=== PATIENT | female | born 2000 | race Caucasian/White ===

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

== ENCOUNTER 2022-07-20 11:15 | Emergency (ER) | payer OTHER ==
[2022-07-20] MEDS ORDERED: ONDANSETRON ODT 4 MG TAB PO STA (12:53)
--- NOTE | 2022-07-20 13:41 | ED ---
Psych HPI - General Chief Complaint: Psychiatric Symptoms Stated Complaint: anxiety Time Seen by Provider: 07/20/22 11:49 Source: patient Mode of arrival: ambulatory - History of Present Illness Initial Comments: Patient is a 21-year-old female presenting with chief complaint of anxiety. Patient has been feeling increased anxiety today, she normally goes to spend time with her boyfriend when this happened however he is currently working. Patient is also admitting to some nausea today, she does admit to drinking alcohol and smoking marijuana last night. She denies any abdominal pain, chest pain, shortness of breath, fever, chills, vomiting, hematochezia, melena, dysuria, hematuria, urgency, frequency, flank pain. - Related Data Home Medications Medication Instructions Recorded Confirmed ARIPiprazole [Abilify] 5 mg PO DAILY 06/02/19 06/02/19 Escitalopram [Lexapro] 10 mg PO DAILY 06/02/19 06/02/19 OXcarbazepine [Trileptal] 300 mg PO BID 06/02/19 06/02/19 Allergies Allergy/AdvReac Type Severity Reaction Status Date / Time No Known Allergies Allergy Verified 07/20/22 11:47 Review of Systems ROS Statement: Those systems with pertinent positive or pertinent negative responses have been documented in the HPI. ROS Other: All systems not noted in ROS Statement are negative. Past Medical History Past Medical History: Asthma Additional Past Medical History / Comment(s): ADHD History of Any Multi-Drug Resistant Organisms: None Reported Past Surgical History: No Surgical Hx Reported Past Psychological History: ADD/ADHD, Anxiety, Bipolar, Depression, Panic Disorder, Schizophrenia Past Alcohol Use History: None Reported Past Drug Use History: None Reported General Exam Limitations: no limitations General appearance: alert, in no apparent distress Head exam: Present: atraumatic, normocephalic, normal inspection Eye exam: Present: normal appearance, EOMI. Absent: scleral icterus, periorbital swelling Neck exam: Present: normal inspection Respiratory exam: Present: normal lung sounds bilaterally. Absent: respiratory distress, wheezes, rales, rhonchi, stridor Cardiovascular Exam: Present: regular rate, normal rhythm, normal heart sounds. Absent: systolic murmur, diastolic murmur, rubs, gallop, clicks Neurological exam: Present: alert, oriented X3, CN II-XII intact Psychiatric exam: Present: normal affect, normal mood Skin exam: Present: warm, dry, intact, normal color. Absent: rash Course Vital Signs 07/20/22 11:42 Pulse Rate 82 Respiratory 16 Rate Blood Pressure 125/73 O2 Sat by Pulse 95 Oximetry Medical Decision Making - Medical Decision Making Patient is a 21-year-old female presenting with chief complaint of anxiety. Patient states she was having an anxiety attack at home, she wanted to talk to her boyfriend that he was at work, so she came here for help. Denies suicidal or homicidal ideation. Denies visual or auditory hallucinations. Physical examination is WNL. Patient is evaluated by EPS, patient follows with [facility], she will need to be transferred to their facilities. - Lab Data Result diagrams: 07/20/22 18:58 07/20/22 18:58 Lab Results 07/20/22 07/20/22 07/20/22 Range/Units 12:59 12:59 12:59 WBC (3.8-10.6) k/uL RBC (3.80-5.40) m/uL Hgb (11.4-16.0) gm/dL Hct (34.0-46.0) % MCV (80.0-100.0) fL MCH (25.0-35.0) pg MCHC (31.0-37.0) g/dL RDW (11.5-15.5) % Plt Count (150-450) k/uL MPV Sodium (137-145) mmol/L Potassium (3.5-5.1) mmol/L Chloride (98-107) mmol/L Carbon Dioxide (22-30) mmol/L Anion Gap mmol/L BUN (7-17) mg/dL Creatinine (0.52-1.04) mg/dL Est GFR (CKD-EPI)AfAm (>60 ml/min/1.73 sqM) Est GFR (CKD-EPI)NonAf (>60 ml/min/1.73 sqM) Glucose (74-99) mg/dL Calcium (8.4-10.2) mg/dL Total Bilirubin (0.2-1.3) mg/dL AST (14-36) U/L ALT (4-34) U/L Alkaline Phosphatase (38-126) U/L Total Protein (6.3-8.2) g/dL Albumin (3.5-5.0) g/dL Urine Color Colorless Urine Appearance Clear (Clear) Urine pH 6.5 (5.0-8.0) Ur Specific [place] 1.008 (1.001-1.035) Urine Protein Negative (Negative) Urine Glucose (UA) Negative (Negative) Urine Ketones Negative (Negative) Urine Blood Negative (Negative) Urine Nitrite Negative (Negative) Urine Bilirubin Negative (Negative) Urine Urobilinogen <2.0 (<2.0) mg/dL Ur Leukocyte Esterase Negative (Negative) Urine HCG, Qual Not Detected (Not Detectd) Urine Opiates Screen Not Detected (NotDetected) Ur Oxycodone Screen Not Detected (NotDetected) Urine Methadone Screen Not Detected (NotDetected) Ur Propoxyphene Screen Not Detected (NotDetected) Ur Barbiturates Screen Not Detected (NotDetected) U Tricyclic Antidepress Not Detected (NotDetected) Ur Phencyclidine Scrn Not Detected (NotDetected) Ur Amphetamines Screen Not Detected (NotDetected) U Methamphetamines Scrn Not Detected (NotDetected) U Benzodiazepines Scrn Not Detected (NotDetected) Urine Cocaine Screen Not Detected (NotDetected) U Marijuana (THC) Screen Not Detected (NotDetected) Coronavirus (PCR) (Not Detectd) 07/20/22 07/20/22 07/20/22 Range/Units 18:58 18:58 18:58 WBC 9.4 (3.8-10.6) k/uL RBC 4.80 (3.80-5.40) m/uL Hgb 14.1 (11.4-16.0) gm/dL Hct 41.3 (34.0-46.0) % MCV 86.0 (80.0-100.0) fL MCH 29.3 (25.0-35.0) pg MCHC 34.1 (31.0-37.0) g/dL RDW 13.8 (11.5-15.5) % Plt Count 188 (150-450) k/uL MPV 10.5 Sodium 137 (137-145) mmol/L Potassium 3.8 (3.5-5.1) mmol/L Chloride 102 (98-107) mmol/L Carbon Dioxide 22 (22-30) mmol/L Anion Gap 13 mmol/L BUN 14 (7-17) mg/dL Creatinine 0.52 (0.52-1.04) mg/dL Est GFR (CKD-EPI)AfAm >90 (>60 ml/min/1.73 sqM) Est GFR (CKD-EPI)NonAf >90 (>60 ml/min/1.73 sqM) Glucose 79 (74-99) mg/dL Calcium 9.1 (8.4-10.2) mg/dL Total Bilirubin 0.3 (0.2-1.3) mg/dL AST 27 (14-36) U/L ALT 13 (4-34) U/L Alkaline Phosphatase 107 (38-126) U/L Total Protein 7.3 (6.3-8.2) g/dL Albumin 4.4 (3.5-5.0) g/dL Urine Color Urine Appearance (Clear) Urine pH (5.0-8.0) Ur Specific [place] (1.001-1.035) Urine Protein (Negative) Urine Glucose (UA) (Negative) Urine Ketones (Negative) Urine Blood (Negative) Urine Nitrite (Negative) Urine Bilirubin (Negative) Urine Urobilinogen (<2.0) mg/dL Ur Leukocyte Esterase (Negative) Urine HCG, Qual (Not Detectd) Urine Opiates Screen (NotDetected) Ur Oxycodone Screen (NotDetected) Urine Methadone Screen (NotDetected) Ur Propoxyphene Screen (NotDetected) Ur Barbiturates Screen (NotDetected) U Tricyclic Antidepress (NotDetected) Ur Phencyclidine Scrn (NotDetected) Ur Amphetamines Screen (NotDetected) U Methamphetamines Scrn (NotDetected) U Benzodiazepines Scrn (NotDetected) Urine Cocaine Screen (NotDetected) U Marijuana (THC) Screen (NotDetected) Coronavirus (PCR) Not Detected (Not Detectd) Disposition Clinical Impression: Anxiety Disposition: TRANSFER TO PSYCH HOSP/UNIT Condition: Fair Referrals: None,Stated [Primary Care Provider] - 1-2 days Time of Disposition: 17:09
[2022-07-20 13:45] LABS: Amphetamine Screen,Urine Not Detected (NotDetected); Barbiturate Screen,Urine Not Detected (NotDetected); Benzodiazepines Screen,Urine Not Detected (NotDetected); Cocaine Screen,Urine Not Detected (NotDetected); Methadone Screen, Urine Not Detected (NotDetected); Opiate Screen,Urine Not Detected (NotDetected); Oxycodone Screen, Urine Not Detected (NotDetected); Phencyclidine Screen,Urine Not Detected (NotDetected); Tricyclic Antidepressant,Urine Not Detected (NotDetected); Urn Cannabinoid Scrn Not Detected (NotDetected)
[2022-07-20 13:46] LABS: Appearance,Urine Clear (Clear); Bilirubin,Urine Negative (Negative); Blood,Urine Negative (Negative); Color,Urine Colorless; Glucose,Urine (UA) Negative (Negative); Ketones,Urine Negative (Negative); Leukocyte Esterase,Urine Negative (Negative); Nitrite,Urine Negative (Negative); PH, Urine 6.5 (5.0-8.0); Protein,Urine Negative (Negative); Specific Gravity,Urine 1.008 (1.001-1.035); Urobilinogen,Urine <2.0 mg/dL (<2.0)
[2022-07-20] MEDS ORDERED: NICOTINE GUM (POLACRILEX) 2 MG GUM BUCCAL PRN (18:23)
[2022-07-20 19:30] LABS: ALT 13 U/L (4-34); AST 27 U/L (14-36); African American GFR (CKD) >90 (>60 ml/min/1.73 sqM); Albumin 4.4 g/dL (3.5-5.0); Alkaline Phosphatase 107 U/L (38-126); Anion Gap 13 mmol/L; Blood Urea Nitrogen 14 mg/dL (7-17); Calcium 9.1 mg/dL (8.4-10.2); Carbon Dioxide 22 mmol/L (22-30); Chloride 102 mmol/L (98-107); Glucose 79 mg/dL (74-99); Non-African American GFR(CKD) >90 (>60 ml/min/1.73 sqM); Potassium 3.8 mmol/L (3.5-5.1); Sodium 137 mmol/L (137-145); Total Bilirubin 0.3 mg/dL (0.2-1.3); Total Protein 7.3 g/dL (6.3-8.2)
[2022-07-20 19:34] LABS: HCT 41.3 % (34.0-46.0); HGB 14.1 gm/dL (11.4-16.0); MCH 29.3 pg (25.0-35.0); MCHC 34.1 g/dL (31.0-37.0); Mean Platelet Volume 10.5; Platelet Count 188 k/uL (150-450); RDW 13.8 % (11.5-15.5); WBC 9.4 k/uL (3.8-10.6)
[2022-07-21 07:36] VITALS: TEMP 98.2
[2022-07-21 09:00] VITALS: BP 150/72; PULSE 100; RESP 20
== END 2022-07-21 14:41 ==
LOC: EC 11:15
DX: F41.9 Anxiety disorder, unspecified (principal); J45.909 Unspecified asthma, uncomplicated; F31.9 Bipolar disorder, unspecified; Z79.899 Other long term (current) drug therapy; Z20.822 Contact with and (suspected) exposure to COVID-19
CPT/HCPCS: 36415; 80053; 80306; 81003; 81025; 82075; 85027; 87635; 99284

== ENCOUNTER 2023-04-23 09:23 | Emergency (ER) | payer OTHER ==
[2023-04-23 09:40] VITALS: PULSE 88
--- NOTE | 2023-04-23 10:11 | ED ---
ENT HPI - General Chief complaint: ENT Stated complaint: Jaw Pain Left Side Time Seen by Provider: 04/23/23 09:45 Source: patient, RN notes reviewed Mode of arrival: ambulatory Limitations: no limitations - History of Present Illness Initial comments: 22-year-old female presents emergency from [facility] left-sided jaw, facial pain. Patient states that she does have noted cavity on that side states that she has a more electronic min. Patient states it is very painful. Patient denies any fever at home were noted have temp of 1.1. Patient denies any difficulty swallowing no cough or cold like symptoms she is not taking Tylenol Motrin. - Related Data Home Medications Medication Instructions Recorded Confirmed ARIPiprazole [Abilify] 5 mg PO DAILY 06/02/19 06/02/19 Escitalopram [Lexapro] 10 mg PO DAILY 06/02/19 06/02/19 OXcarbazepine [Trileptal] 300 mg PO BID 06/02/19 06/02/19 Previous Rx's Medication Instructions Recorded Amoxic-Pot Clav 875-125Mg 1 tab PO Q12HR #20 tab 04/23/23 [Augmentin 875-125] Ibuprofen [Motrin] 600 mg PO Q8HR PRN #20 tab 04/23/23 Allergies Allergy/AdvReac Type Severity Reaction Status Date / Time No Known Allergies Allergy Verified 04/23/23 09:40 Review of Systems ROS Statement: Those systems with pertinent positive or pertinent negative responses have been documented in the HPI. ROS Other: All systems not noted in ROS Statement are negative. Past Medical History Past Medical History: Asthma Additional Past Medical History / Comment(s): ADHD History of Any Multi-Drug Resistant Organisms: None Reported Past Surgical History: No Surgical Hx Reported Past Psychological History: ADD/ADHD, Anxiety, Bipolar, Depression, Panic Disorder, Schizophrenia Smoking Status: Current every day smoker, Vaper Past Alcohol Use History: None Reported Past Drug Use History: Marijuana General Exam Limitations: no limitations General appearance: alert, in no apparent distress Head exam: Present: atraumatic, normocephalic, normal inspection Eye exam: Present: normal appearance, PERRL, EOMI. Absent: scleral icterus, conjunctival injection, periorbital swelling ENT exam: Present: mucous membranes moist, TM's normal bilaterally, normal external ear exam. Absent: normal oropharynx (Infected more left lower, there is notable tenderness and swelling no left submandibular gland region) Neck exam: Present: normal inspection, full ROM. Absent: tenderness, m eningismus, lymphadenopathy Respiratory exam: Present: normal lung sounds bilaterally. Absent: respiratory distress, wheezes, rales, rhonchi, stridor Cardiovascular Exam: Present: regular rate, normal rhythm, normal heart sounds. Absent: systolic murmur, diastolic murmur, rubs, gallop, clicks Course Vital Signs 04/23/23 04/23/23 09:36 10:20 Temperature 100.1 F H 98.9 F Pulse Rate 88 88 Respiratory 18 16 Rate Blood Pressure 113/73 115/69 O2 Sat by Pulse 98 Oximetry Medical Decision Making - Medical Decision Making Was pt. sent in by a medical professional or institution (, [facility], [employer], urgent care, hospital, or residential...) When possible be specific @ -No Did you speak to anyone other than the patient for history (EMS, parent, family, police, friend...)? What history was obtained from this source @ -No Did you review nursing and triage notes (agree or disagree)? Why? @ -I reviewed and agree with nursing and triage notes Were old charts reviewed (outside hosp., previous admission, EMS record, old EKG, old radiological studies, urgent care reports/EKG's, residential records)? Report findings @ -No old charts were reviewed Differential Diagnosis (chest pain, altered mental status, abdominal pain women, abdominal pain men, vaginal bleeding, weakness, fever, dyspnea, syncope, headache, dizziness, GI bleed, back pain, seizure, CVA, palpatations, mental health, musculoskeletal)? @ -Dental infection, dental abscess, sialadentitis EKG interpreted by me (3pts min.). @ none ove] X-rays interpreted by me (1pt min.). @ -None done CT interpreted by me (1pt min.). @ -None done U/S interpreted by me (1pt. min.). @ -None done What testing was considered but not performed or refused? (CT, X-rays, U/S, labs)? Why? @ -None What meds were considered but not given or refused? Why? @ -None Did you discuss the management of the patient with other professionals (professionals i.e. , PA, [employer], lab, RT, psych nurse, executive secretary social welfare, practical nurse clinical coordinator, teacher, credit officer, field case manager)? Give summary @ -No Was smoking cessation discussed for >3mins.? @ -No Was critical care preformed (if so, how long)? @ -No Were there social determinants of health that impacted care today? How? (Homelessness, low income, unemployed, alcoholism, drug addiction, transportation, low edu. Level, literacy, decrease access to med. care, [place] [facility], rehab)? @ -No Was there de-escalation of care discussed even if they declined (Discuss DNR or withdrawal of care, Hospice)? DNR status @ -No What co-morbidities impacted this encounter? (DM, HTN, Smoking, COPD, CAD, Cancer, CVA, ARF, Chemo, Hep., AIDS, mental health diagnosis, sleep apnea, morbid obesity)? @ -None Was patient admitted / discharged? Hospital course, mention meds given and route, prescriptions, significant lab abnormalities, going to OR and other pertinent info. Patient discharged on oral antibiotics with close follow-up this may related from underlying dental infection or salivary gland infection, blocked duct. Patient advised to try a candies will follow-up with dentist.] Undiagnosed new problem with uncertain prognosis? @ -No Drug Therapy requiring intensive monitoring for toxicity (Heparin, Nitro, Insulin, Cardizem)? @ -No Were any procedures done? @ -No Diagnosis/symptom? Dental infection Acute, or Chronic, or Acute on Chronic? Acute ] Uncomplicated (without systemic symptoms) or Complicated (systemic symptoms)? @ -Uncomplicated Side effects of treatment? @ -No Exacerbation, Progression, or Severe Exacerbation? @ -No Poses a threat to life or bodily function? How? (Chest pain, [place], [place], pneumonia, PE, COPD, DKA, ARF, appy, cholecystitis, CVA, Diverticulitis, Homicidal, Suicidal, threat to staff... and all critical care pts) @ -No Disposition Clinical Impression: Dental infection, Sialadenitis Disposition: HOME SELF-CARE Condition: Stable Instructions (If sedation given, give patient instructions): Dental Abscess (ED) Additional Instructions: Please return to the Emergency Department if symptoms worsen or any other concerns. Prescriptions: Amoxic-Pot Clav 875-125Mg [Augmentin 875-125] 1 tab PO Q12HR #20 tab Ibuprofen [Motrin] 600 mg PO Q8HR PRN #20 tab PRN Reason: Pain Is patient prescribed a controlled substance at d/c from ED?: No Referrals: None,Stated [Primary Care Provider] - 1-2 days Time of Disposition: 10:10
[2023-04-23 10:21] VITALS: BP 115/69; RESP 16; TEMP 98.9
== END 2023-04-23 10:21 | disposition home or self-care (01) ==
LOC: EC 09:23
DX: K04.7 Periapical abscess without sinus (principal); K11.20 Sialoadenitis, unspecified; J45.909 Unspecified asthma, uncomplicated; F12.90 Cannabis use, unspecified, uncomplicated; F17.290 Nicotine dependence, other tobacco product, uncomplicated
CPT/HCPCS: 99283

== ENCOUNTER 2023-05-15 13:11 | Emergency (ER) | payer OTHER ==
[2023-05-15 15:14] LABS: Appearance,Urine Cloudy (Clear); Bacteria,Urine Rare /hpf; Bilirubin,Urine Negative (Negative); Blood,Urine Negative (Negative); Color,Urine Yellow; Glucose,Urine (UA) Negative (Negative); Ketones,Urine Negative (Negative); Leukocyte Esterase,Urine Large (Negative); Mucus,Urine Many /hpf; Nitrite,Urine Negative (Negative); Protein,Urine 1+ (Negative); RBC,Urine 11 /hpf (0-5); Specific Gravity,Urine 1.025 (1.001-1.035); Squamous Epithelial Cell,Urine 6 /hpf (0-4); Urobilinogen,Urine <2.0 mg/dL (<2.0); WBC,Urine 32 /hpf (0-5)
--- NOTE | 2023-05-15 17:07 | ED ---
General Adult HPI - General Chief complaint: Urogenital Stated complaint: Vaginal Itching Time Seen by Provider: 05/15/23 16:02 Source: patient Mode of arrival: ambulatory Limitations: no limitations - History of Present Illness Initial comments: 22-year-old female presents to the emergency department with chief complaint of vaginal itching, odor, discharge since Thursday. She reports the discharge as white. Patient states that she has not had any recent new sexual partners. She states that her last period was at the beginning of this month. Patient does not be tested for STDs. She denies any fever, chills. - Related Data Home Medications Medication Instructions Recorded Confirmed ARIPiprazole [Abilify] 5 mg PO DAILY 06/02/19 06/02/19 Escitalopram [Lexapro] 10 mg PO DAILY 06/02/19 06/02/19 OXcarbazepine [Trileptal] 300 mg PO BID 06/02/19 06/02/19 Previous Rx's Medication Instructions Recorded Amoxic-Pot Clav 875-125Mg 1 tab PO Q12HR #20 tab 04/23/23 [Augmentin 875-125] Ibuprofen [Motrin] 600 mg PO Q8HR PRN #20 tab 04/23/23 metroNIDAZOLE [Flagyl] 500 mg PO BID #14 tab 05/15/23 Allergies Allergy/AdvReac Type Severity Reaction Status Date / Time No Known Allergies Allergy Verified 05/15/23 14:19 Review of Systems ROS Statement: Those systems with pertinent positive or pertinent negative responses have been documented in the HPI. ROS Other: All systems not noted in ROS Statement are negative. Past Medical History Past Medical History: Asthma Additional Past Medical History / Comment(s): ADHD History of Any Multi-Drug Resistant Organisms: None Reported Past Surgical History: No Surgical Hx Reported Past Psychological History: ADD/ADHD, Anxiety, Bipolar, Depression, Panic Disorder, Schizophrenia Smoking Status: Current every day smoker, Vaper Past Alcohol Use History: None Reported Past Drug Use History: Marijuana General Exam Limitations: no limitations General appearance: alert, in no apparent distress Head exam: Present: atraumatic, normocephalic, normal inspection Eye exam: Present: normal appearance ENT exam: Present: normal exam, mucous membranes moist Neck exam: Present: normal inspection. Absent: tenderness, meningismus, lymphadenopathy Respiratory exam: Present: normal lung sounds bilaterally. Absent: respiratory distress, wheezes, rales, rhonchi, stridor Cardiovascular Exam: Present: regular rate, normal rhythm, normal heart sounds. Absent: systolic murmur, diastolic murmur, rubs, gallop, clicks GI/Abdominal exam: Present: soft, normal bowel sounds. Absent: distended, tenderness, guarding, rebound, rigid External exam: Present: normal external exam Speculum exam: Present: vaginal discharge By manual exam: Present: normal by manual exam Extremities exam: Present: normal inspection, full ROM, normal capillary refill. Absent: tenderness, pedal edema, joint swelling, calf tenderness Back exam: Present: normal inspection Neurological exam: Present: alert, oriented X3 Psychiatric exam: Present: normal affect, normal mood Skin exam: Present: warm, dry, intact, normal color. Absent: rash Course Vital Signs 05/15/23 05/15/23 14:16 17:40 Temperature 98.0 F 97.8 F Pulse Rate 70 56 L Respiratory 20 16 Rate Blood Pressure 111/70 112/70 O2 Sat by Pulse 98 98 Oximetry Medical Decision Making - Medical Decision Making Was pt. sent in by a medical professional or institution (, PA, SPOT WORKER, urgent care, hospital, or assisted...) When possible be specific @ -No Did you speak to anyone other than the patient for history (EMS, parent, family, police, friend...)? What history was obtained from this source @ -No Did you review nursing and triage notes (agree or disagree)? Why? @ -I reviewed and agree with nursing and triage notes Were old charts reviewed (outside hosp., previous admission, EMS record, old EKG, old radiological studies, urgent care reports/EKG's, assisted records)? Report findings @ -No old charts were reviewed Differential Diagnosis (chest pain, altered mental status, abdominal pain women, abdominal pain men, vaginal bleeding, weakness, fever, dyspnea, syncope, headache, dizziness, GI bleed, back pain, seizure, CVA, palpatations, mental health, musculoskeletal)? @ -Gonorrhea, chlamydia, Trichomonas, bacterial vaginosis, vaginal candidiasis EKG interpreted by me (3pts min.). @ -None] X-rays interpreted by me (1pt min.). @ -None done CT interpreted by me (1pt min.). @ -None done U/S interpreted by me (1pt. min.). @ -None done What testing was considered but not performed or refused? (CT, X-rays, U/S, labs)? Why? @ -None What meds were considered but not given or refused? Why? @ -None Did you discuss the management of the patient with other professionals (professionals i.e. , PA, SPOT WORKER, lab, RT, psych nurse, healthcare social worker, plastic parts designer, teacher, home lending officer, complex case manager)? Give summary @ -No Was smoking cessation discussed for >3mins.? @ -No Was critical care preformed (if so, how long)? @ -No Were there social determinants of health that impacted care today? How? (Homelessness, low income, unemployed, alcoholism, drug addiction, t ransportation, low edu. Level, literacy, decrease access to med. care, retirement, rehab)? @ -No Was there de-escalation of care discussed even if they declined (Discuss DNR or withdrawal of care, Hospice)? DNR status @ -No What co-morbidities impacted this encounter? (DM, HTN, Smoking, COPD, CAD, Cancer, CVA, ARF, Chemo, Hep., AIDS, mental health diagnosis, sleep apnea, morbid obesity)? @ -None Was patient admitted / discharged? Hospital course, mention meds given and route, prescriptions, significant lab abnormalities, going to OR and other pertinent info. @ -Discharge. Patient presented to emergency department chief complaint of vaginal itching, odor, discharge. Patient treated empirically for bacterial vaginosis based on clinical examination. Patient instructed not to take alcohol while taking Flagyl. Advised patient with recalls with results for STD testing if positive. Patient discharged in stable condition. Case discussed with my attending, Umu Sesay] Undiagnosed new problem with uncertain prognosis? @ -No Drug Therapy requiring intensive monitoring for toxicity (Heparin, Nitro, Insulin, Cardizem)? @ -No Were any procedures done? @ -No Diagnosis/symptom? @ -bacterial vaginosis Acute, or Chronic, or Acute on Chronic? @ -acute Uncomplicated (without systemic symptoms) or Complicated (systemic symptoms)? @ -uncomplicated Side effects of treatment? @ -No Exacerbation, Progression, or Severe Exacerbation? @ -No Poses a threat to life or bodily function? How? (Chest pain, [place], [place], pneumonia, PE, COPD, DKA, ARF, appy, cholecystitis, CVA, Diverticulitis, Homicidal, Suicidal, threat to staff... and all critical care pts) @ -No - Lab Data Lab Results 05/15/23 05/15/23 Range/Units 14:33 14:33 Urine Color Yellow Urine Appearance Cloudy H (Clear) Urine pH 6.0 (5.0-8.0) Ur Specific [place] 1.025 (1.001-1.035) Urine Protein 1+ H (Negative) Urine Glucose (UA) Negative (Negative) Urine Ketones Negative (Negative) Urine Blood Negative (Negative) Urine Nitrite Negative (Negative) Urine Bilirubin Negative (Negative) Urine Urobilinogen <2.0 (<2.0) mg/dL Ur Leukocyte Esterase Large H (Negative) Urine RBC 11 H (0-5) /hpf Urine WBC 32 H (0-5) /hpf Ur Squamous Epith Cells 6 H (0-4) /hpf Urine Bacteria Rare H (None) /hpf Urine Mucus Many H (None) /hpf Urine HCG, Qual Not Detected (Not Detectd) Disposition Clinical Impression: Bacterial vaginosis Disposition: HOME SELF-CARE Condition: Stable Instructions (If sedation given, give patient instructions): Bacterial Vaginosis (ED) Additional Instructions: Do not consume alcohol while taking the antibiotic. Please follow up with your primary care provider. Return to the emergency department for new or worsening symptoms. Prescriptions: metroNIDAZOLE [Flagyl] 500 mg PO BID #14 tab Is patient prescribed a controlled substance at d/c from ED?: No Referrals: None,Stated [Primary Care Provider] - 1-2 days Time of Disposition: 17:07
[2023-05-15 17:42] VITALS: BP 112/70; PULSE 56; RESP 16; TEMP 97.8
[2023-05-18 15:19] LABS: C. trachomatis,PCR Positive (Negative)
[2023-05-18 15:32] LABS: N. gonorrhoeae,PCR Negative (Negative)
== END 2023-05-15 17:43 | disposition home or self-care (01) ==
LOC: EC 13:11
DX: N76.0 Acute vaginitis (principal); B96.89 Other specified bacterial agents as the cause of diseases classified elsewhere; J45.909 Unspecified asthma, uncomplicated; F31.9 Bipolar disorder, unspecified; F41.9 Anxiety disorder, unspecified; F17.290 Nicotine dependence, other tobacco product, uncomplicated; F12.90 Cannabis use, unspecified, uncomplicated; Z79.899 Other long term (current) drug therapy
CPT/HCPCS: 81001; 81025; 87070; 87086; 87491; 87591; 99283

== ENCOUNTER 2023-08-10 14:28 | Emergency (ER) | payer OTHER ==
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
[2023-08-10 15:01] VITALS: RESP 18; TEMP 99.6
[2023-08-10 15:15] LABS: Appearance,Urine Cloudy (Clear); Bacteria,Urine Rare /hpf; Bilirubin,Urine Negative (Negative); Blood,Urine Negative (Negative); Color,Urine Yellow; Glucose,Urine (UA) Negative (Negative); Ketones,Urine Negative (Negative); Leukocyte Esterase,Urine Negative (Negative); Mucus,Urine Many /hpf; Nitrite,Urine Negative (Negative); Protein,Urine Trace (Negative); RBC,Urine 1 /hpf (0-5); Specific Gravity,Urine 1.025 (1.001-1.035); Squamous Epithelial Cell,Urine 30 /hpf (0-4); WBC,Urine 3 /hpf (0-5)
[2023-08-10] MEDS ORDERED: KETOROLAC 15 MG/ML 1 ML VIAL IM STA (17:31)
[2023-08-10] MEDS ORDERED: SODIUM CHLORIDE 0.9% 1,000 ML IV STA (17:41)
--- NOTE | 2023-08-10 18:03 | XR ---
EXAMINATION TYPE: XR chest 2V DATE OF EXAM: 08/10/2023 5:53 PM CLINICAL INDICATION:Female, 22 years old with history of pain; COMPARISON: 12/02/2017 TECHNIQUE: XR chest 2V Frontal and lateral views of the chest. FINDINGS: Lungs/Pleura: There is no evidence of pleural effusion, focal consolidation, or pneumothorax. Pulmonary vascularity: Unremarkable. Heart/mediastinum: Cardiomediastinal silhouette is unremarkable. Musculoskeletal: No acute osseous pathology. IMPRESSION: No acute cardiopulmonary disease/process.
--- NOTE | 2023-08-10 18:07 | XR ---
EXAMINATION TYPE: XR lumbar spine 2 or 3V DATE OF EXAM: 08/10/2023 5:53 PM CLINICAL INDICATION:Female, 22 years old with history of pain; [facility] COMPARISON: None TECHNIQUE: XR lumbar spine 2 or 3V - Frontal, lateral and coned in L5-S1 lateral views of the spine. FINDINGS: No evidence of any acute osseous pathology. Mild wedging of the T12 and L1 vertebral bodies anteriorly. The remainder of the vertebral body heights are maintained. There is normal alignment of the lumbar vertebral bodies. Mild osteophyte formation vertebral bodies. Facet arthropathy is mild. IMPRESSION: 1. No acute fracture. 2. Mild wedging of the T12 and L1 vertebral bodies otherwise multilevel disc degeneration.
--- NOTE | 2023-08-10 18:11 | XR ---
EXAMINATION TYPE: XR KUB DATE OF EXAM: 08/10/2023 5:53 PM CLINICAL INDICATION:Female, 22 years old with history of pain; COMPARISON: None. TECHNIQUE: One radiographic view of the abdomen was obtained. FINDINGS: The bowel gas pattern is nonspecific without dilated loops of small or large bowel. There i s no evidence for organomegaly or pneumoperitoneum. The osseous structures are intact. No abnormal calcifications are present. Fecal material and gas are demonstrated throughout the colon and rectum. IMPRESSION: Nonspecific bowel gas pattern without radiographic evidence for acute process.
[2023-08-10 18:15] LABS: Basophils % (A) 0 %; Eosinophils % (A) 0 %; HCT 46.1 % (34.0-46.0); Lymphocytes # (A) 1.3 k/uL (1.0-4.8); Lymphocytes % (A) 10 %; MCH 28.5 pg (25.0-35.0); MCHC 32.5 g/dL (31.0-37.0); MCV 87.8 fL (80.0-100.0); Mean Platelet Volume 9.5; Monocytes # (A) 0.6 k/uL (0-1.0); Monocytes % (A) 5 %; Neutrophils # (A) 10.1 k/uL (1.3-7.7); Neutrophils % (A) 83 %; Platelet Count 200 k/uL (150-450); RBC 5.25 m/uL (3.80-5.40); RDW 14.6 % (11.5-15.5); WBC 12.2 k/uL (3.8-10.6)
[2023-08-10 18:26] LABS: ALT 15 U/L (4-34); AST 29 U/L (14-36); African American GFR (CKD) >90 (>60 ml/min/1.73 sqM); Albumin 4.8 g/dL (3.5-5.0); Alkaline Phosphatase 79 U/L (38-126); Amylase 49 U/L (30-110); Anion Gap 12 mmol/L; Blood Urea Nitrogen 11 mg/dL (7-17); Calcium 9.7 mg/dL (8.4-10.2); Carbon Dioxide 25 mmol/L (22-30); Chloride 101 mmol/L (98-107); Glucose 86 mg/dL (74-99); Lipase 103 U/L (23-300); Non-African American GFR(CKD) >90 (>60 ml/min/1.73 sqM); Potassium 4.1 mmol/L (3.5-5.1); Sodium 138 mmol/L (137-145); Total Bilirubin 0.8 mg/dL (0.2-1.3); Total Protein 8.4 g/dL (6.3-8.2)
[2023-08-10 19:19] VITALS: BP 116/71; PULSE 94
== END 2023-08-10 19:18 | disposition home or self-care (01) ==
LOC: EC 14:28
DX: R10.9 Unspecified abdominal pain (principal); M25.511 Pain in right shoulder; M54.9 Dorsalgia, unspecified; J45.909 Unspecified asthma, uncomplicated; F17.290 Nicotine dependence, other tobacco product, uncomplicated; F12.90 Cannabis use, unspecified, uncomplicated
CPT/HCPCS: 36415; 80053; 82150; 83690; 85025; 81001; 81025; 72100; 71046; 74018; 99284; 96360; 96372; J1885

== ENCOUNTER 2023-08-13 12:49 | Emergency (ER) | payer OTHER ==
[2023-08-13 13:28] VITALS: BP 107/71; PULSE 88; RESP 16; TEMP 97.6
--- NOTE | 2023-08-13 13:34 | ED ---
ENT HPI - General Source: patient, RN notes reviewed Mode of arrival: ambulatory Limitations: no limitations - History of Present Illness MD complaint: sore throat <Nancy Vivar - Last Filed: 08/13/23 13:29> <Janey Toney - Last Filed: 08/13/23 18:02> - General Chief complaint: ENT Stated complaint: ENT Time Seen by Provider: 08/13/23 13:29 - History of Present Illness Initial comments: This is a 22 year old female who presents to the emergency department for a sore throat. States that her tonsils appear swollen. Also states that she has been evaluated here a few times in the last 3 weeks for ongoing URI sx. Denies any chest pain or shortness of breath. (Nancy Vivar) 22-year-old female presents emergency department chief complaint sore throat. She states that this has been going on for around 3 weeks now. She states today that she noticed when she was in the mirror that her tonsils were swollen. She admits to heartburn occasionally. She denies fever, chills, shortness of breath, cough, congestion. She reports that she has been eating and hydrating well. She does not have a primary care provider that she sees. (Janey Toney) - Related Data Previous Rx's Medication Instructions Recorded Acetaminophen Tab [Tylenol] 500 mg PO Q6H #30 tablet 08/10/23 Ibuprofen [Motrin] 600 mg PO Q8HR PRN #30 tab 08/10/23 Acetaminophen [Tylenol Extra 500 mg PO Q6HR #30 tablet 08/13/23 Strength] Ibuprofen 600 mg PO Q8H #30 tab 08/13/23 Allergies Allergy/AdvReac Type Severity Reaction Status Date / Time No Known Allergies Allergy Verified 08/13/23 13:25 Review of Systems ROS Other: All systems not noted in ROS Statement are negative. <Nancy Vivar - Last Filed: 08/13/23 13:29> ROS Other: All systems not noted in ROS Statement are negative. <Janey Toney - Last Filed: 08/13/23 18:02> ROS Statement: Those systems with pertinent positive or pertinent negative responses have been documented in the HPI. Past Medical History Past Medical History: Asthma Additional Past Medical History / Comment(s): ADHD History of Any Multi-Drug Resistant Organisms: None Reported Past Surgical History: No Surgical Hx Reported Past Psychological History: ADD/ADHD, Anxiety, Bipolar, Depression, Panic Disorder, Schizophrenia Smoking Status: Current every day smoker, Vaper Past Alcohol Use History: None Reported Past Drug Use History: Marijuana <Nancy Vivar - Last Filed: 08/13/23 13:29> General Exam Limitations: no limitations <Nancy Vivar - Last Filed: 08/13/23 13:29> General appearance: alert, in no apparent distress Head exam: Present: atraumatic, normocephalic, normal inspection Eye exam: Present: normal appearance, PERRL, EOMI. Absent: scleral icterus, conjunctival injection, periorbital swelling ENT exam: Present: mucous membranes moist, other (Slightly erythematous oropharynx with cobblestoning of posterior oropharynx) Neck exam: Present: normal inspection, full ROM. Absent: tenderness, meningismus, lymphadenopathy Respiratory exam: Present: normal lung sounds bilaterally. Absent: respiratory distress, wheezes, rales, rhonchi, stridor Cardiovascular Exam: Present: regular rate, normal rhythm, normal heart sounds. Absent: systolic murmur, diastolic murmur, rubs, gallop, clicks Neurological exam: Present: alert, oriented X3 Psychiatric exam: Present: normal affect, normal mood Skin exam: Present: warm, dry, intact, normal color. Absent: rash <Janey Toney - Last Filed: 08/13/23 18:02> - General Exam Comments Initial Comments: Visual Physical Exam Vital signs reviewed General: Well-appearing, nontoxic, no acute distress. Head: Normocephalic, atraumatic Eyes: PERRLA, EOMI ENT: Airway patent Chest: Nonlabored breathing Skin: No visual rash, normal skin tone Neuro: Alert and oriented 3 Musculoskeletal: No gross abnormalities I performed the QuickNote portion of this chart. Signed Nancy Vivar PA-C. (Nancy Vivar) Course Vital Signs 08/13/23 13:25 Temperature 97.6 F Pulse Rate 88 Respiratory 16 Rate Blood Pressure 107/71 O2 Sat by Pulse 99 Oximetry Medical Decision Making <Janey Toney - Last Filed: 08/13/23 18:02> - Medical Decision Making Was pt. sent in by a medical professional or institution ([facility], PULMONARY FELLOW, urgent care, hospital, or fpc...) When possible be specific @ -No Did you speak to anyone other than the patient for history (EMS, parent, family, police, friend...)? What history was obtained from this source @ -No Did you review nursing and triage notes (agree or disagree)? Why? @ -I reviewed and agree with nursing and triage notes Were old charts reviewed (outside hosp., previous admission, EMS record, old EKG, old radiological studies, urgent care reports/EKG's, fpc records)? Report findings @ -No old charts were reviewed Differential Diagnosis (chest pain, altered mental status, abdominal pain women, abdominal pain men, vaginal bleeding, weakness, fever, dyspnea, syncope, headache, dizziness, GI bleed, back pain, seizure, CVA, palpatations, mental health, musculoskeletal)? @ -Strep, Covid, flu, viral tonsillitis, this list is not all-inclusive EKG interpreted by me (3pts min.). @ -None X-rays interpreted by me (1pt min.). @ -None done CT interpreted by me (1pt min.). @ -None done U/S interpreted by me (1pt. min.). @ -None done What testing was considered but not performed or refused? (CT, X-rays, U/S, labs)? Why? @ -None What meds were considered but not given or refused? Why? @ -Short course of steroids was considered but patient declined Did you discuss the management of the patient with other professionals (professionals i.e. [facility], PULMONARY FELLOW, lab, RT, psych nurse, social service assistant, multimedia technician, teacher, annual giving officer, caser shoe parts)? Give summary @ -No Was smoking cessation discussed for >3mins.? @ -No Was critical care preformed (if so, how long)? @ -No Were there social determinants of health that impacted care today? How? (Homelessness, low income, unemployed, alcoholism, drug addiction, transportation, low edu. Level, literacy, decrease access to med. care, detention, rehab)? @ -No Was there de-escalation of care discussed even if they declined (Discuss DNR or withdrawal of care, Hospice)? DNR status @ -No What co-morbidities impacted this encounter? (DM, HTN, Smoking, COPD, CAD, Cancer, CVA, ARF, Chemo, Hep., AIDS, mental health diagnosis, sleep apnea, morbid obesity)? @ -None Was patient admitted / discharged? Hospital course, mention meds given and route, prescriptions, significant lab abnormalities, going to OR and other pertinent info. @ -Discharged. Patient presented to the emergency department for chief complaint of sore throat. She states that this is an ongoing issue for 3 weeks now. She states that today she looked in the mirror and noticed her tonsils looked swollen. On examination, slightly erythematous oropharynx with cobblestoning, no significant tonsillar exudate or edema. Covid, influenza, RSV, strep, Monospot negative. A throat culture was sent we will call her with results. Advised her of these findings and that we will call her if the throat culture comes back positive. Patient also provided list of area PCP as she currently does not have one. Patient stable time of discharge. Case discussed with Dr. Red Undiagnosed new problem with uncertain prognosis? @ -No Drug Therapy requiring intensive monitoring for toxicity (Heparin, Nitro, Insulin, Cardizem)? @ -No Were any procedures done? @ -No Diagnosis/symptom? @ -sore throat Acute, or Chronic, or Acute on Chronic? @ -acute Uncomplicated (without systemic symptoms) or Complicated (systemic symptoms)? @ -uncomplicated Side effects of treatment? @ -No Exacerbation, Progression, or Severe Exacerbation? @ -No Poses a threat to life or bodily function? How? (Chest pain, USA, OR, pneumonia, PE, COPD, DKA, ARF, appy, cholecystitis, CVA, Diverticulitis, Homicidal, Suicidal, threat to staff... and all critical care pts) @ -No (Janey Toney) - Lab Data Lab Results 08/13/23 08/13/23 08/13/23 Range/Units 14:00 14:00 14:00 Heterophile Antibody Negative (Negative) Influenza Type A (PCR) Not Detected (Not Detectd) Influenza Type B (PCR) Not Detected (Not Detectd) RSV (PCR) Not Detected (Not Detectd) SARS-CoV-2 (PCR) Not Detected (Not Detectd) Group A Strep (PCR) NOT DETECTED (Not Detectd) Disposition <Nancy Vivar - Last Filed: 08/13/23 13:29> Is patient prescribed a controlled substance at d/c from ED?: No <Janey Toney - Last Filed: 08/13/23 18:02> Clinical Impression: Sore throat Disposition: HOME SELF-CARE Condition: Stable Instructions (If sedation given, give patient instructions): Tonsillitis (ED) Additional Instructions: Please follow up with your primary care provider. Return to the emergency department for new or worsening symptoms. Prescriptions: Ibuprofen 600 mg PO Q8H #30 tab Acetaminophen [Tylenol Extra Strength] 500 mg PO Q6HR #30 tablet Referrals: None,Stated [Primary Care Provider] - 1-2 days Forms: [facility] PCPs
== END 2023-08-13 18:26 | disposition home or self-care (01) ==
LOC: EC 12:49
DX: J02.9 Acute pharyngitis, unspecified (principal); J45.909 Unspecified asthma, uncomplicated; F17.290 Nicotine dependence, other tobacco product, uncomplicated; F12.90 Cannabis use, unspecified, uncomplicated; Z86.59 Personal history of other mental and behavioral disorders; Z20.822 Contact with and (suspected) exposure to COVID-19
CPT/HCPCS: 36415; 86308; 87070; 87636; 87651; 99283

== ENCOUNTER 2023-08-25 14:41 | Inpatient (IN) | payer MEDICAID, OTHER ==
--- NOTE | 2023-08-25 15:11 | ED ---
General Adult HPI - General Stated complaint: Mental Health Time Seen by Provider: 08/25/23 14:46 Source: patient, police, EMS, RN notes reviewed Mode of arrival: EMS Limitations: no limitations - History of Present Illness Initial comments: Patient is a pleasant 22-year-old female presenting to the emergency department with concerns for mental health evaluation. Patient reportedly states that she was brought in by police secondary to crying in public. Patient admits to having a bowel movement. Patient states she is supposed be on medication for bipolar however she has not been, unclear how long. Patient admits to having racing thoughts and difficulty sleeping. Patient has not been eating or drinking well. Patient is laughing inappropriately. - Related Data Home Medications Medication Instructions Recorded Confirmed No Known Home Medications 08/25/23 08/25/23 Allergies Allergy/AdvReac Type Severity Reaction Status Date / Time No Known Allergies Allergy Verified 08/25/23 16:13 Review of Systems ROS Statement: Those systems with pertinent positive or pertinent negative responses have been documented in the HPI. ROS Other: All systems not noted in ROS Statement are negative. Constitutional: Denies: fever Eyes: Denies: eye pain ENT: Denies: ear pain Respiratory: Denies: cough Cardiovascular: Denies: chest pain Endocrine: Denies: fatigue Gastrointestinal: Denies: abdominal pain Psychiatric: Reports: as per HPI Past Medical History Past Medical History: Asthma Additional Past Medical History / Comment(s): ADHD History of Any Multi-Drug Resistant Organisms: None Reported Past Surgical History: No Surgical Hx Reported Past Psychological History: ADD/ADHD, Anxiety, Bipolar, Depression, Panic Disorder, Schizophrenia Smoking Status: Current every day smoker, Vaper Past Alcohol Use History: None Reported Past Drug Use History: Marijuana General Exam Limitations: no limitations General appearance: alert, in no apparent distress Head exam: Present: atraumatic Eye exam: Present: normal appearance Neck exam: Present: normal inspection Respiratory exam: Present: normal lung sounds bilaterally Cardiovascular Exam: Present: regular rate, normal rhythm Neurological exam: Present: alert Psychiatric exam: Present: manic Expanded Focused psych exam: Present: restlessness, flight of ideas Skin exam: Present: normal color Course Vital Signs 08/25/23 14:51 Temperature 99 F Pulse Rate 86 Respiratory 18 Rate Blood Pressure 106/71 O2 Sat by Pulse 99 Oximetry Medical Decision Making - Medical Decision Making Was pt. sent in by a medical professional or institution ([facility], PRODUCT LISTER, urgent care, hospital, or fpc...) When possible be specific @ -Patient was brought in by police Did you speak to anyone other than the patient for history (EMS, parent, family, police, friend...)? What history was obtained from this source @ -Please officer's help provide history Did you review nursing and triage notes (agree or disagree)? Why? @ -I reviewed and agree with nursing and triage notes Were old charts reviewed (outside hosp., previous admission, EMS record, old EKG, old radiological studies, urgent care reports/EKG's, fpc records)? Report findings @ -No old charts were reviewed Differential Diagnosis (chest pain, altered mental status, abdominal pain women, abdominal pain men, vaginal bleeding, weakness, fever, dyspnea, syncope, headache, dizziness, GI bleed, back pain, seizure, CVA, palpatations, mental health, musculoskeletal)? @ -Differential Mental Health Depression, anxiety, bipolar, psychosis, schizophrenia, borderline personality, situational depression, adjustment disorder, behavioral disorder, brain tumor, malingering, substance abuse, encephalopathy, medication reaction, dementia, hypothyroidism, degenerative neurologic disorder, lupus.... This is not meant to be all-inclusive list EKG interpreted by me (3pts min.). @ -As above X-rays interpreted by me (1pt min.). @ -None done CT interpreted by me (1pt min.). @ -None done U/S interpreted by me (1pt. min.). @ -None done What testing was considered but not performed or refused? (CT, X-rays, U/S, labs)? Why? @ -None What meds were considered but not given or refused? Why? @ -None Did you discuss the management of the patient with other professionals (professionals i.e. [facility]ELA Myers, PRODUCT LISTER, lab, RT, psych nurse, clinical social work therapist, drying oven attendant, teacher, horticultural technical officer, home health care case manager)? Give summary @ -Case was discussed with psychiatric nurse [place], with plans for admission Was smoking cessation discussed for >3mins.? @ -No Was critical care preformed (if so, how long)? @ -No Were there social determinants of health that impacted care today? How? (H omelessness, low income, unemployed, alcoholism, drug addiction, transportation, low edu. Level, literacy, decrease access to med. care, senior care, rehab)? @ -No Was there de-escalation of care discussed even if they declined (Discuss DNR or withdrawal of care, Hospice)? DNR status @ -No What co-morbidities impacted this encounter? (DM, HTN, Smoking, COPD, CAD, Cancer, CVA, ARF, Chemo, Hep., AIDS, mental health diagnosis, sleep apnea, morbid obesity)? @ -None Was patient admitted / discharged? Hospital course, mention meds given and route, prescriptions, significant lab abnormalities, going to OR and other pertinent info. @ -Patient will be admitted for psychiatric care. Positive clinical certificate was completed. Undiagnosed new problem with uncertain prognosis? @ -No Drug Therapy requiring intensive monitoring for toxicity (Heparin, Nitro, Insulin, Cardizem)? @ -No Were any procedures done? @ -No Diagnosis/symptom? @ -Bipolar julia Acute, or Chronic, or Acute on Chronic? @Acute on Chronic Uncomplicated (without systemic symptoms) or Complicated (systemic symptoms)? @ -default Side effects of treatment? @ -No Exacerbation, Progression, or Severe Exacerbation? @ -No Poses a threat to life or bodily function? How? (Chest pain, USA, [place], pneumonia, PE, COPD, DKA, ARF, appy, cholecystitis, CVA, Diverticulitis, Homicidal, Suicidal, threat to staff... and all critical care pts) @ -No Disposition Clinical Impression: Bipolar disorder, Julia Disposition: TRANSFER TO PSYCH HOSP/UNIT Is patient prescribed a controlled substance at d/c from ED?: No Referrals: None,Stated [Primary Care Provider] - 1-2 days Time of Disposition: 20:11
[2023-08-26 00:11] LABS: Amphetamine Screen,Urine Not Detected (NotDetected); Barbiturate Screen,Urine Not Detected (NotDetected); Benzodiazepines Screen,Urine Not Detected (NotDetected); Cocaine Screen,Urine Not Detected (NotDetected); Methadone Screen, Urine Not Detected (NotDetected); Opiate Screen,Urine Not Detected (NotDetected); Oxycodone Screen, Urine Not Detected (NotDetected); Phencyclidine Screen,Urine Not Detected (NotDetected); Tricyclic Antidepressant,Urine Not Detected (NotDetected); Urn Cannabinoid Scrn Detected (NotDetected)
[2023-08-26 08:29] LABS: Basophils % (A) 0 %; Eosinophils # (A) 0.1 k/uL (0-0.7); Eosinophils % (A) 1 %; HCT 42.2 % (34.0-46.0); HGB 13.9 gm/dL (11.4-16.0); Lymphocytes % (A) 32 %; MCH 28.6 pg (25.0-35.0); MCHC 32.9 g/dL (31.0-37.0); MCV 86.8 fL (80.0-100.0); Mean Platelet Volume 8.9; Monocytes # (A) 0.4 k/uL (0-1.0); Monocytes % (A) 6 %; Neutrophils # (A) 3.8 k/uL (1.3-7.7); Neutrophils % (A) 59 %; Platelet Count 254 k/uL (150-450); RBC 4.86 m/uL (3.80-5.40); RDW 14.5 % (11.5-15.5); WBC 6.4 k/uL (3.8-10.6)
[2023-08-26 09:10] LABS: ALT 16 U/L (4-34); AST 34 U/L (14-36); African American GFR (CKD) >90 (>60 ml/min/1.73 sqM); Albumin 4.1 g/dL (3.5-5.0); Alkaline Phosphatase 60 U/L (38-126); Anion Gap 11 mmol/L; Blood Urea Nitrogen 14 mg/dL (7-17); Calcium 9.5 mg/dL (8.4-10.2); Carbon Dioxide 24 mmol/L (22-30); Chloride 106 mmol/L (98-107); Glucose 93 mg/dL (74-99); Non-African American GFR(CKD) >90 (>60 ml/min/1.73 sqM); Potassium 4.1 mmol/L (3.5-5.1); Sodium 141 mmol/L (137-145); Total Bilirubin 0.8 mg/dL (0.2-1.3); Total Protein 7.1 g/dL (6.3-8.2)
[2023-08-26 11:19] LABS: Amorphous Sediment,Urine Rare /hpf; Appearance,Urine Cloudy (Clear); Bacteria,Urine Occasional /hpf; Calcium Oxalate Crystals,Urine Moderate /hpf; Color,Urine Yellow; Mucus,Urine Many /hpf; RBC,Urine 4 /hpf (0-5); Specific Gravity,Urine >1.030 (1.001-1.035); Squamous Epithelial Cell,Urine 18 /hpf (0-4); WBC,Urine 59 /hpf (0-5)
[2023-08-26 11:20] LABS: Bilirubin,Urine Negative (Negative); Blood,Urine Negative (Negative); Glucose,Urine (UA) Negative (Negative); Ketones,Urine 1+ (Negative); Nitrite,Urine Negative (Negative); Protein,Urine 1+ (Negative)
[2023-08-26 11:21] LABS: Leukocyte Esterase,Urine Large (Negative)
[2023-08-26] MEDS ORDERED: MAGNESIUM HYDROXIDE 2,400 MG/30 ML CUP PO PRN (14:33)
[2023-08-26] MEDS ORDERED: MAG HYDROX/AL HYDROX/SIMETH 30 ML CUP PO PRN (14:33)
[2023-08-26] MEDS ORDERED: LORazepam 2 MG/ML INJ IM PRN (14:35)
[2023-08-26] MEDS ORDERED: HALOPERIDOL LACTATE 5 MG/ML 1 ML VIAL IM PRN (14:35)
--- NOTE | 2023-08-27 00:53 | P.CONS ---
History of Present Illness - Reason for Consult Consult date: 08/26/23 - History of Present Illness Patient is a 22-year-old female with a PMH of polysubstance abuse and psychiatric illnesses including bipolar disorder who presented to the emergency room under police custody after she was found in public crying. Patient had reported to the emergency room providers that she had not been compliant with her bipolar disorder medications for an unknown quantity time. She was admitted to the mental health unit where she was seen and evaluated accompanied by the mental health unit GITA Valdez. Patient reports that she has a significant history of substance use including methamphetamines, Percocets, and marijuana. She continues to smoke 3 packs of cigarettes daily and drinking several beers daily. She reports her last use of methamphetamines and Percocets was over 6 months ago. Denied experiencing chest discomfort, shortness of breath, fever, chills, cough, nausea, vomiting, abdominal pain, diarrhea. Review of systems: Pertinent positives and negatives as discussed in HPI, a complete review of systems was performed and all other systems are negative. Physical examination: General: non toxic, no distress, appears at stated age, normal weight Derm: no unusual rashes/lesions, no unusual ecchymoses, warm, dry Head: atraumatic, normocephalic, symmetric Eyes: EOMI, no lid lag, anicteric sclera ENT: Nose and ears atraumatic, no thrush, no pharyngeal erythema Neck: trachea midline, supple Mouth: no lip lesion, mucus membranes moist Cardiovascular: S1S2 reg, no murmur, no edema Lungs: CTA bilateral, no rhonchi, no rales , no accessory muscle use Abdominal: soft, nontender to palpation, no guarding Ext: no gross muscle atrophy, no contractures, Neuro: No gross focal neuro deficits noted Psych: Alert, oriented, internally preoccupied Assessment: Polysubstance, tobacco, alcohol abuse Psychosis Imaging: None performed Data Review: Laboratory evaluation was reviewed with urine toxicology positive for marijuana with the contaminated Plan: Advised on importance of cessation from substances Defer management of psychosis to primary psychiatry service Thank you for allowing us to participate in the care of this patient. We will follow peripherally. Do not hesitate to contact us with questions. Someone can be reached from the [facility] hospitalist group at all hours of the day at [phone]. Past Medical History Past Medical History: Asthma Additional Past Medical History / Comment(s): ADHD History of Any Multi-Drug Resistant Organisms: None Reported Past Surgical History: No Surgical Hx Reported Past Psychological History: ADD/ADHD, Anxiety, Bipolar, Depression, Panic Disorder, Schizophrenia Smoking Status: Current every day smoker, Vaper Past Alcohol Use History: None Reported Past Drug Use History: Marijuana Medications and Allergies Home Medications Medication Instructions Recorded Confirmed Type No Known Home Medications 08/25/23 08/25/23 History Allergies Allergy/AdvReac Type Severity Reaction Status Date / Time No Known Allergies Allergy Verified 08/25/23 16:13 Physical Exam Vitals: Vital Signs Temp Pulse Pulse Resp BP BP Pulse Ox 08/26/23 16:00 97.7 F 78 20 114/62 98 08/26/23 15:10 72 18 124/81 97 08/26/23 10:33 98.1 F 71 18 127/84 99 Results CBC & Chem 7: 08/26/23 08:14 08/26/23 08:14 Labs: Abnormal Lab Results - Last 24 Hours (Table) 08/25/23 Range/Units 23:06 Urine Appearance Cloudy H (Clear) Urine WBC 59 H (0-5) /hpf Ur Squamous Epith Cells 18 H (0-4) /hpf Calcium Oxalate Crystal Moderate H (None) /hpf Amorphous Sediment Rare H (None) /hpf Urine Bacteria Occasional H (None) /hpf Urine Mucus Many H (None) /hpf
[2023-08-27] MEDS ORDERED: NICOTINE 14MG/24HR PATCH TRANSDERM SCH (09:00)
[2023-08-27] MEDS: LORazepam 1 MG TAB PO PRN (12:03)
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
[2023-08-27] MEDS: ARIPiprazole 5 MG TAB PO SCH (15:53)
[2023-08-27] MEDS: traZODone HCL 50 MG TAB PO SCH (21:29)
[2023-08-28] MEDS: NICOTINE 21MG/24HR PATCH TRANSDERM SCH (09:03)
[2023-08-28] MEDS: ARIPiprazole 5 MG TAB PO SCH (09:03)
--- NOTE | 2023-08-28 10:28 | P.PN ---
Progress Note - Text Progress Note Date: 08/28/23 Interval history: Patient was seen today in her room. She continues to be fairly bizarre during the encounter. She has been mainly isolating in her room and not going to many groups. She claims that she does not believe that she needs to be in the hospital, she states that "I'm going to refuse my medications and that okay?". She states that she would rather use "substances" and when asked more to define that she claims that she would rather use "alcohol and marijuana". She continues to display very poor insight and judgment. Claims that she does not need psychiatric help. She continues to state that she has racing thoughts, states that she had difficulty sleeping last night. At this time she is denying any suicidal or homicidal ideations intent or plan. Denying any auditory or visual hallucinations. patient did take her meds this morning. Mental status examination: General Appearance: Patient appears to be short stature, mildly overweight, stated age is alert, bizarre at times, evasive. Patient appears to have [midlly improving] hygiene and grooming. Behavior: Patient is seated without any agitated behavior. Evasive, bizarre. Speech: Patient's speech is [fluent and nonpressured.] [place]. Mood/Affect: Patient reports their mood is [depressed] anxious, affect is c ongruent and constricted. Suicidality/Homicidality: She admits to homicidal ideations, no target, denies any suicidal thoughts. Perceptions: Patient denies any visual hallucinations [and denies any AH. Though content/process: positive content. Bizarre thoughts. [place]. Thought endorsing paranoia Memory and concentration: AOX3, grossly intact for the purposes of this session Judgment and insight: [poor] IMPRESSIONS: Psychosis unspecified Cannabis use disorder Nicotine dependence PLAN: -Patient is admitted under [involuntary] status to MHU for stabilization of psychiatric symptoms and safety. Patient has [not] signed [adult voluntary form and] [medication consent] and is placed in patient's chart -Medications : increase abilify po 7.5 mg daily for mood stabilization/psychosis, trazodone 50 mg qhs for insomnia. -Ativan [and Haldol] PRN for agitation/aggression -NRT - [nicotine patch] and gum -SW on board for discharge planning. Encourage patient to participate in groups to work on coping skills. [Will await deferral and court date.]
[2023-08-28] MEDS: traZODone HCL 50 MG TAB PO SCH ×2 (20:35→22:14)
[2023-08-28] MEDS: LORazepam 1 MG TAB PO PRN (22:13)
[2023-08-28] MEDS: haloperidoL 5 MG TAB PO PRN (22:17)
[2023-08-29] MEDS: ARIPiprazole 15 MG TAB PO SCH (07:59)
[2023-08-29] MEDS: NICOTINE 21MG/24HR PATCH TRANSDERM SCH (08:35)
[2023-08-29] MEDS: haloperidoL 5 MG TAB PO PRN ×2 (17:49→23:08)
[2023-08-29] MEDS: LORazepam 1 MG TAB PO PRN ×2 (17:49→22:05)
--- NOTE | 2023-08-29 17:57 | P.PN ---
Progress Note - Text Progress Note Date: 08/29/23 Interval history: Patient was seen today as she was coming out of her room and was agreeable to s peak with this keno writer. Her affect is odd, appears guarded and is overtly responding to internal stimuli. She speaks with a soft tone and provides answers that are somewhat off-topic. When asked about her mood she states "I was watching football" and laughs inappropriately. When asked about suicidal or homicidal thoughts, she replies, "that's none of your business". When ask about auditory or visual hallucinations, she abruptly ends the assessment and runs away down the hallway. I discussed this case with the nurses today due to concern patient may be cheeking her medications. Mental status examination: General Appearance: Patient appears to be a petite, overweight female with adequate grooming and hygiene. Behavior: Patient appears guarded and evasive, then abruptly ends assessment and runs away down the hallway. Speech: Patient's speech is soft and non-pressured. Mood/Affect: Patient reports their mood is "ok...I was watching football", affect is odd. Suicidality/Homicidality: She does not answer this question, tells me "none of your business". Perceptions: She is overtly attending to internal stimuli. When asked about auditory or visual hallucinations, she abruptly ends the assessment and runs away down the hallway. Thought content/process: Paranoid, mistrusting, odd responses. Evasive, concrete. Memory and concentration: AOX3, grossly intact for the purposes of this session Judgment and insight: very poor Assessment/Plan: Continue with current diagnosis. Patient continues to meet criteria for inpatient psychiatric admission for symptom stabilization and safety. Continue current medication regime and MONITOR FOR CHEEKING. Monitor for medication compliance and for any psychotropic medication side effects. Will continue to monitor ongoing response to treatment. Encouraged participation in milieu.
[2023-08-29] MEDS: traZODone HCL 50 MG TAB PO SCH ×2 (21:51→22:04)
[2023-08-30] MEDS: ARIPiprazole 15 MG TAB PO SCH (08:08)
[2023-08-30] MEDS: NICOTINE GUM (POLACRILEX) 2 MG GUM BUCCAL PRN (08:09)
[2023-08-30] MEDS: NICOTINE 21MG/24HR PATCH TRANSDERM SCH (08:10)
--- NOTE | 2023-08-30 17:56 | P.PN ---
Progress Note - Text Progress Note Date: 08/30/23 Interval history: Patient was seen today resting in her room and was agreeable to speak with this keno writer / runner. She received Haldol 5 mg po x1 and Ativan 1 mg po x 1 last night, and today she does not appear to be overtly attending to internal stimuli or making off statements. Thought process remains mildly disorganized. She reports good sleep and appetite today; reports mood is a little bit depressed. She reports she feels scared about staying homeless and alone. She denies medication side effects. She denies SI/HI, intent or plan today. She denies auditory or visual hallucinations. Mental status examination: General Appearance: Patient appears to be a petite, overweight female with fair grooming and hygiene. Behavior: Patient appears less guarded and evasive, then abruptly ends assessment and runs away down the hallway. Speech: Patient's speech is soft and non-pressured. Mood/Affect: Patient reports their mood is "a little depressed", affect is odd. Suicidality/Homicidality: She denies SI/HI. Perceptions: She denies AH/VH. Thought content/process: Mildly disorganized still, reports worries about being homeless Memory and concentration: AOX3, grossly intact for the purposes of this session Judgment and insight: very poor Assessment/Plan: Continue with current diagnosis. Patient continues to meet criteria for inpatient psychiatric admission for symptom stabilization and safety. Continue current medication regime and MONITOR FOR CHEEKING. Monitor for medication compliance and for any psychotropic medication side effects. Will continue to monitor ongoing response to treatment. Encouraged participation in milieu.
[2023-08-30] MEDS: traZODone HCL 50 MG TAB PO SCH (19:47)
[2023-08-30] MEDS: LORazepam 1 MG TAB PO PRN (23:38)
[2023-08-31] MEDS: ARIPiprazole 15 MG TAB PO SCH (08:34)
[2023-08-31] MEDS: NICOTINE GUM (POLACRILEX) 2 MG GUM BUCCAL PRN (08:35)
[2023-08-31] MEDS: NICOTINE 21MG/24HR PATCH TRANSDERM SCH (08:36)
--- NOTE | 2023-08-31 10:21 | P.PN ---
Progress Note - Text Progress Note Date: 08/31/23 Interval history: Patient was seen today wandering the hallways and was agreeable to speak to lebron otero in the office this morning. She continues to be fairly bizarre during the encounter however this is improving mildly. She continues to endorse some paranoia about other patients on the unit believing that there trying to "coffee me" and looking at her goal sheet. She states that she is trying to go to some groups. She appeared to be somewhat confused about the legal process still however has not deferred at this time. She continues to have fairly poor insight and judgment. She believes that she already signed a deferral and showed appeals writer several of the legal paperwork however it did not include the deferral paperwork. She states that she is having nightmares at nighttime and has have "racing thoughts" which is disrupting her sleep. At this time she is denying any suicidal or homicidal ideations intent or plan. Denying any auditory or visual hallucinations. Mental status examination: General Appearance: Patient appears to be short stature, mildly overweight, stated age is alert, bizarre at times, evasive. Patient appears to have improving hygiene and grooming. Behavior: Patient is seated without any agitated behavior. Evasive, bizarre, improving mildly Speech: Patient's speech is fluent and nonpressured. [place]. Mood/Affect: Patient reports their mood is depressed anxious, affect is congruent and constricted. Suicidality/Homicidality: She admits to homicidal ideations, no target, denies any suicidal thoughts. Perceptions: Patient denies any visual hallucinations and denies any AH. Though content/process: positive content. Bizarre thoughts, improving midlly. Thought endorsing paranoia, mildly improving. Memory and concentration: AOX3, grossly intact for the purposes of this session Judgment and insight: poor, improving mildly. IMPRESSIONS: Psychosis unspecified Cannabis use disorder Nicotine dependence PLAN: -Patient is admitted under involuntary status to MHU for stabilization of psychiatric symptoms and safety. Patient has not signed adult voluntary form and medication consent and is placed in patient's chart -Medications : increase abilify po 10 mg daily for mood stabilization/psychosis, increase trazodone 100 mg qhs for insomnia/mood. added prazosin 1 mg qhs for nightmares. -Ativan and Haldol PRN for agitation/aggression -NRT - nicotine patch and gum -SW on board for discharge planning. Encourage patient to participate in groups to work on coping skills. Will await court date as patient did not defer.
[2023-08-31] MEDS ORDERED: traZODone HCL 100 MG TAB PO SCH (21:00)
[2023-08-31] MEDS ORDERED: PRAZOSIN 1 MG CAP PO SCH (21:00)
[2023-08-31] MEDS: LORazepam 1 MG TAB PO PRN (22:41)
[2023-09-01] MEDS ORDERED: ARIPiprazole 10 MG TAB PO SCH (09:00)
[2023-09-01] MEDS: NICOTINE GUM (POLACRILEX) 2 MG GUM BUCCAL PRN ×2 (09:03→15:06)
[2023-09-01] MEDS: NICOTINE 21MG/24HR PATCH TRANSDERM SCH (09:03)
[2023-09-01] MEDS ORDERED: traZODone HCL 50 MG TAB PO PRN (12:01)
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
[2023-09-01] MEDS: SERTRALINE 50 MG TAB PO SCH (12:27)
[2023-09-01] MEDS ORDERED: QUEtiapine 50 MG TAB PO SCH (21:00)
[2023-09-01] MEDS: PRAZOSIN 1 MG CAP PO SCH (21:44)
[2023-09-02 02:13] LABS: Glucose,Whole Blood 98 mg/dL (70-110)
[2023-09-02] MEDS: NICOTINE 21MG/24HR PATCH TRANSDERM SCH (08:42)
[2023-09-02] MEDS: SERTRALINE 50 MG TAB PO SCH ×2 (08:42→11:33)
--- NOTE | 2023-09-02 13:38 | P.PN ---
Progress Note - Text Progress Note Date: 09/02/23 Interval history: Patient was seen today sitting in her room on her bed. She she was fairly tea rful today when editorial writer attempted to speak with her. She apparently was interacting with another patient who is on the unit and was fairly affected by it. She was demanding to know whether she can get or not and states she does not know if her ovaries are functioning. She was fairly preoccupied with today. She was tearful, difficult to redirect. We spoke about her medications and states that she is feeling like she is having more mood swings at this time. States that she slept fairly last night however does not know how many hours. Hasn't mainly keeping herself today and not interested in going to many groups. We reflected on the court order presented today. She has questions about it. At this time she is denying any suicidal or homicidal ideations intent or plan. Denying any auditory or visual hallucinations. Mental status examination: General Appearance: Patient appears to be short stature, mildly overweight, stated age is alert, bizarre at times. Patient appears to have improving hygiene and grooming. Behavior: Patient is seated without any agitated behavior. Evasive, appears to be upset. Speech: Patient's speech is fluent and nonpressured. Mood/Affect: Patient reports their mood is mainly anxious and depressed, affect is congruent and her tearful today Suicidality/Homicidality: She denies homicidal ideations, denies any suicidal th oughts. Perceptions: Patient denies any visual hallucinations and denies any AH. Though content/process: positive content. Bizarre thoughts, improving midlly. Focused on . Memory and concentration: AOX3, grossly intact for the purposes of this session Judgment and insight: chronically limited, improving mildly IMPRESSIONS: Psychosis unspecified Cannabis use disorder Nicotine dependence PLAN: -Patient is admitted under involuntary status to MHU for stabilization of psychiatric symptoms and safety. Patient has not signed adult voluntary form and medication consent and is placed in patient's chart -Medications : increase seroquel 100 mg qhs for mood stabilization/sleep, trazodone 50 mg qhs prn for insomnia/mood. prazosin 2 mg qhs for nightmares. increase zoloft to 100 mg daily for mood/anxiety. added abilify po 10 mg daily for mood stabilization. plan will be to transition patient back onto [facility]. -Ativan and Haldol PRN for agitation/aggression -NRT - nicotine patch and gum -SW on board for discharge planning. Encourage patient to participate in groups to work on coping skills. patient received court order on 09/02 for MH treatment.
[2023-09-02] MEDS: ARIPiprazole 10 MG TAB PO SCH (13:53)
[2023-09-02] MEDS: QUEtiapine 100 MG TAB PO SCH (22:19)
[2023-09-02] MEDS: PRAZOSIN 1 MG CAP PO SCH ×2 (22:19→22:23)
[2023-09-03] MEDS: SERTRALINE 100 MG TAB PO SCH (08:49)
[2023-09-03] MEDS: ARIPiprazole 10 MG TAB PO SCH (08:49)
[2023-09-03] MEDS: NICOTINE 21MG/24HR PATCH TRANSDERM SCH (08:49)
[2023-09-03] MEDS ORDERED: ARIPiprazole 5 MG TAB PO ONE (10:29)
[2023-09-03] MEDS: LORazepam 1 MG TAB PO PRN (14:32)
[2023-09-03] MEDS: haloperidoL 5 MG TAB PO PRN (14:32)
--- NOTE | 2023-09-03 14:58 | P.PN ---
Progress Note - Text Progress Note Date: 09/03/23 Interval history: Patient was seen today walking the hallways and was agreeable to speak to order today. Patient was not focused today on having children. She made some bizarre and inappropriate comments towards her. She claims that she is trying to go to groups and claims that she is trying to get along with others. She was feeling less labile, states that she was having difficulty sleeping last night. She claims that she wants to be discharged to her "" when pressed more about it she became more defensive. She was seen later on upset crying and states that there is "somebody in my room" and claims that somebody was out to harm her. At this time she is denying any suicidal or homicidal ideations intent or plan. Denying any auditory or visual hallucinations. Mental status examination: General Appearance: Patient appears to be short stature, mildly overweight, stated age is alert, bizarre. Patient appears to have improving hygiene and grooming. Behavior: Patient is seated without any agitated behavior. Evasive, appears to be upset. Speech: Patient's speech is fluent and nonpressured. Mood/Affect: Patient reports their mood is mainly anxious, affect is congruent and her tearful today Suicidality/Homicidality: She denies homicidal ideations, denies any suicidal thoughts. Perceptions: Patient denies any visual hallucinations and denies any AH. Though content/process: positive content. Bizarre thoughts, improving midlly. Paranoia Memory and concentration: AOX3, grossly intact for the purposes of this session Judgment and insight: chronically limited IMPRESSIONS: Psychosis unspecified Cannabis use disorder Nicotine dependence PLAN: -Patient is admitted under involuntary status to [facility] for stabilization of psychiatric symptoms and safety. Patient has not signed adult voluntary form and medication consent and is placed in patient's chart -Medications : continue seroquel 100 mg qhs for mood stabilization/sleep, trazodone 50 mg qhs prn for insomnia/mood. prazosin 2 mg qhs for nightmares. zoloft 100 mg daily for mood/anxiety. discotninue abilify and repolace with prolixin 2.5 mg bid for psychosis/mood stabilization. plan will be to transition patient back onto [facility]. -Ativan and Haldol PRN for agitation/aggression -NRT - nicotine patch and gum -SW on board for discharge planning. Encourage patient to participate in groups to work on coping skills. patient received court order on 09/02 for MH treatment.
[2023-09-03] MEDS: PRAZOSIN 1 MG CAP PO SCH (21:56)
[2023-09-03] MEDS: QUEtiapine 100 MG TAB PO SCH (21:56)
[2023-09-04] MEDS: SERTRALINE 100 MG TAB PO SCH (07:54)
[2023-09-04] MEDS: NICOTINE 21MG/24HR PATCH TRANSDERM SCH (07:54)
[2023-09-04] MEDS ORDERED: ARIPiprazole 15 MG TAB PO SCH (09:00)
--- NOTE | 2023-09-04 09:47 | P.PN ---
Progress Note - Text Progress Note Date: 09/04/23 Interval history: Patient was seen today walking the hallways and was agreeable to speak to sports writer today in the office. Patient was somewhat delusional today and believes "people take deep on talking about drugs being in here" and believes that there may be drugs even in her Chap[employer] as she pulled it out. She somewhat bizarre and inappropriate comments and responses. She appeared to be less paranoid today however, states that she is trying to go to groups. She states that she was able to sleep about 8 hours last night, has been eating fairly well. At this time she is denying any suicidal or homicidal ideations intent or plan. Denying any auditory or visual hallucinations. Mental status examination: General Appearance: Patient appears to be short stature, mildly overweight, stated age is alert, bizarre, improving moderately. Patient appears to have improving hygiene and grooming. Behavior: Patient is seated without any agitated behavior. Mildly bizarre today. Speech: Patient's speech is fluent and nonpressured. rambles at times. Mood/Affect: Patient reports their mood is improving mildlyect is congruent Suicidality/Homicidality: She denies homicidal ideations, denies any suicidal thoughts. Perceptions: Patient denies any visual hallucinations and denies any AH. Though content/process: Rambles at times, Bizarre thoughts, improving midlly. less Paranoia Memory and concentration: AOX3, grossly intact for the purposes of this session Judgment and insight: chronically limitedCalm on improving mildly IMPRESSIONS: Psychosis unspecified Cannabis use disorder Nicotine dependence PLAN: -Patient is admitted under involuntary status to [facility] for stabilization of ps ychiatric symptoms and safety. Patient has not signed adult voluntary form and medication consent and is placed in patient's chart -Medications : continue seroquel 100 mg qhs for mood stabilization/sleep, trazodone 50 mg qhs prn for insomnia/mood. prazosin 2 mg qhs for nightmares. zoloft 100 mg daily for mood/anxiety. increase prolixin 4 mg bid for psychosis/mood stabilization. plan will be to transition patient back onto [facility]. -Ativan and Haldol PRN for agitation/aggression -NRT - nicotine patch and gum -SW on board for discharge planning. Encourage patient to participate in groups to work on coping skills. patient received court order on 09/02 for MH treatment. possible d/c early next week if patient is improving.
[2023-09-04] MEDS: LORazepam 1 MG TAB PO PRN (15:39)
[2023-09-04] MEDS: QUEtiapine 100 MG TAB PO SCH (20:58)
[2023-09-04] MEDS: PRAZOSIN 1 MG CAP PO SCH (20:58)
[2023-09-05] MEDS: NICOTINE 21MG/24HR PATCH TRANSDERM SCH (09:59)
[2023-09-05] MEDS: SERTRALINE 100 MG TAB PO SCH (10:00)
[2023-09-05] MEDS: haloperidoL 5 MG TAB PO PRN (17:34)
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
[2023-09-05] MEDS: PRAZOSIN 1 MG CAP PO SCH (20:45)
[2023-09-05] MEDS: QUEtiapine 100 MG TAB PO SCH (20:45)
[2023-09-06] MEDS: NICOTINE 21MG/24HR PATCH TRANSDERM SCH (07:44)
[2023-09-06] MEDS: SERTRALINE 100 MG TAB PO SCH (07:45)
[2023-09-06] MEDS: haloperidoL 5 MG TAB PO PRN (13:21)
[2023-09-06] MEDS: LORazepam 1 MG TAB PO PRN (14:53)
[2023-09-06] MEDS: PRAZOSIN 1 MG CAP PO SCH (20:49)
[2023-09-06] MEDS: QUEtiapine 100 MG TAB PO SCH (20:49)
--- NOTE | 2023-09-06 22:11 | P.PN ---
Progress Note - Text Progress Note Date: 09/06/23 Interval history: The patient has been evaluated today for an established follow-up visit, neema velásquez for Dr. Garcia The chart has been reviewed, medication reconciliation completed, and the case has been discussed with the nursing staff. The patient presents today hyperverbal but no tangential and there is no evidence of disorganized "thoughts." The patient reports feeling emotionally missing her significant other. She denies suicidal or homicidal ideation. The patient reports her anxiety is much less today. No report of hallucinations, paranoid ideation, delusions. The patient reports good sleep last night and she had good dreams. She was talking about seeing herself at [facility] but she didn't elaborate about that.The patient also reported having fair appetite. The patient reports continued compliance with psychiatric medication, with no reported side effects. Mental Status Examination: Appearance: Appears stated age, adequately groomed, average body built, and no specific features. Gait/ posture: Steady gait, normal arm swinging, no abnormal movements, with re laxed posture. Attitude and Behavior: Engaged, cooperative, maintained eye contact during course of interview. Motor Activity: No psychomotor agitation or retardation. Speech: Increased rate, rhythm, articulation, and prosody. None pressured. Mood: " great Affect: Restricted, appropriate to context and situation. Thought form: Goal directed, linear, and relevant, not incoherent and no clang association. Thought content: Logical, delusional, denies suicidal / homicidal thoughts, intentions, or plans. Perception: Denies any auditory/ visual or tactile hallucinations. Attention: No impairment. Orientation: Oriented to time, place, person, and situation. Insight & Judgment: Limited Impulse control: Limited Assessment and Diagnosis: Psychosis unspecified Cannabis use disorder Nicotine dependence Plan: Continue inpatient psychiatric hospitalization. The patient continues to meet the criteria for inpatient psychiatric hospitalization as evidenced by the ongoing need for further monitoring, stabilization and discharge planning. Continue routine monitoring, including suicide and elopement precautions. Check every 15 minutes. Educate and encourage the patient to attend groups and other therapeutic activities. Consult the medical team if any acute medical emergency arises. Continue current psychiatric medications, including: Seroquel 100 mg qhs for mood stabilization/sleep, Trazodone 50 mg qhs prn for insomnia/mood. Prazosin 2 mg qhs for nightmares. Zoloft 100 mg daily for mood/anxiety. Prolixin 4 mg bid for psychosis/mood stabilization. plan will be to transition patient back onto [facility] -NRT - nicotine patch and gum Continue PRN psychiatric medications, including: -Ativan and Haldol PRN for agitation/aggression Continue non-psychiatric medications as per the medical team's recommendations. Continue discharge planning as per social service and the primary psychiatric team's recommendations.
[2023-09-07] MEDS: NICOTINE 21MG/24HR PATCH TRANSDERM SCH (07:57)
[2023-09-07] MEDS: SERTRALINE 100 MG TAB PO SCH (07:57)
[2023-09-07] MEDS ORDERED: OLANZapine 5 MG TAB PO PRN (14:39)
--- NOTE | 2023-09-07 14:43 | P.PN ---
Progress Note - Text Progress Note Date: 09/07/23 Interval history: Patient was seen today walking the hallways and was agreeable to speak to short story writer today in the office. Patient appears to be more organized today and her thoughts, denies any paranoia or not endorsed delusions today. States that the medication has been helping her mood and also anxiety. She states that she is sad about not being able to see her significant other. She claims that she would like to go to a [facility], [facility] or go to a friend's house upon discharge. We spoke about the benefits of a long-acting injection and patient was agreeable to take that today. Claims that she is sleeping fairly at nighttime. Has been trying to go to groups. She states that she was able to sleep about 8 hours last night, has been eating fairly well. At this time she is denying any suicidal or homicidal ideations intent or plan. Denying any auditory or visual hallucinations. Mental status examination: General Appearance: Patient appears to be short stature, mildly overweight, stated age is alert, improving moderately. Patient appears to have improving hygiene and grooming. Behavior: Patient is seated without any agitated behavior. More cooperative Speech: Patient's speech is fluent and nonpressured. Mood/Affect: Patient reports their mood is improving mildlyect is congruent Suicidality/Homicidality: She denies homicidal ideations, denies any suicidal thoughts. Perceptions: Patient denies any visual hallucinations and denies any AH. Though content/process: Rambles at times, denies any Paranoia. Not endorsing any paranoia. More appropriate. Memory and concentration: AOX3, grossly intact for the purposes of this session Judgment and insight: chronically limited, improving mildly IMPRESSIONS: Psychosis unspecified Cannabis use disorder Nicotine dependence PLAN: -Patient is admitted under involuntary status to [facility] for stabilization of psychiatric symptoms and safety. Patient has not signed adult voluntary form and medication consent and is placed in patient's chart -Medications : continue seroquel 100 mg qhs for mood stabilization/sleep, trazodone 50 mg qhs prn for insomnia/mood. prazosin 2 mg qhs for nightmares. zoloft 100 mg daily for mood/anxiety. continue prolixin 4 mg bid for psychosis/mood stabilization. plan will be to give Prolixin D today 37.5 mg IM and next dose will be due in q14d on 09/21 -Ativan and Haldol PRN for agitation/aggression -NRT - nicotine patch and gum -SW on board for discharge planning. Encourage patient to participate in groups to work on coping skills. patient received court order on 09/02 for MH treatment. possible d/c tomorrow if patient is improving.
[2023-09-07] MEDS ORDERED: fluPHENAZine DECANOATE 25 MG/ML 5ML MDV IM ONE (15:00)
[2023-09-07] MEDS: ACETAMINOPHEN TAB 325 MG TAB PO PRN ×2 (15:07→20:51)
[2023-09-07] MEDS: QUEtiapine 100 MG TAB PO SCH (20:10)
[2023-09-07] MEDS: PRAZOSIN 1 MG CAP PO SCH (20:10)
[2023-09-08 05:47] VITALS: RESP 13; TEMP 97.8
[2023-09-08] MEDS: NICOTINE 21MG/24HR PATCH TRANSDERM SCH (08:18)
[2023-09-08] MEDS: SERTRALINE 100 MG TAB PO SCH (08:19)
[2023-09-08] MEDS: ACETAMINOPHEN TAB 325 MG TAB PO PRN (08:46)
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
[2023-09-08] MEDS: LORazepam 1 MG TAB PO PRN (12:29)
[2023-09-08 12:46] VITALS: BP 125/63; PULSE 92
[2023-09-08 14:24] VITALS: BMI 29.9
== END 2023-09-08 15:35 | disposition home or self-care (01) | DRG 751 ==
LOC: EC 14:41 → 3MHU 08-26 14:25
PROVIDERS: ADMIT Psychiatry & Neurology Psychiatry; ATTEND Psychiatry & Neurology Psychiatry
DX: F29 Unspecified psychosis not due to a substance or known physiological condition (principal); F17.290 Nicotine dependence, other tobacco product, uncomplicated; J45.909 Unspecified asthma, uncomplicated; F43.10 Post-traumatic stress disorder, unspecified; F90.9 Attention-deficit hyperactivity disorder, unspecified type; F41.0 Panic disorder [episodic paroxysmal anxiety]; Z20.822 Contact with and (suspected) exposure to COVID-19; Z28.310 Unvaccinated for COVID-19; Z88.7 Allergy status to serum and vaccine; F15.11 Other stimulant abuse, in remission; F11.11 Opioid abuse, in remission; F10.10 Alcohol abuse, uncomplicated; F12.90 Cannabis use, unspecified, uncomplicated
CPT/HCPCS: 36415; 80053; 80306; 81001; 81025; 82075; 85025; 87635; 99285

== ENCOUNTER 2023-09-11 12:44 | Emergency (ER) | payer OTHER ==
[2023-09-11 12:54] VITALS: TEMP 97.7
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
[2023-09-11] MEDS ORDERED: ONDANSETRON ODT 4 MG TAB PO STA (13:20)
[2023-09-11 15:38] VITALS: BP 120/79; PULSE 79; RESP 18
== END 2023-09-11 15:26 | disposition home or self-care (01) ==
LOC: EC 12:44
DX: R11.10 Vomiting, unspecified (principal); J45.909 Unspecified asthma, uncomplicated; F17.290 Nicotine dependence, other tobacco product, uncomplicated; F12.90 Cannabis use, unspecified, uncomplicated
CPT/HCPCS: 81025; 99285

== ENCOUNTER 2023-09-11 19:04 | Emergency (ER) | payer OTHER ==
[2023-09-11 19:34] VITALS: BP 122/81; PULSE 60; RESP 16; TEMP 97.9
--- NOTE | 2023-09-11 20:07 | ED ---
General Adult HPI - General Chief complaint: Psychiatric Symptoms Stated complaint: Abd pain Time Seen by Provider: 09/11/23 19:37 Source: patient, RN notes reviewed, old records reviewed Mode of arrival: ambulatory Limitations: no limitations - History of Present Illness Initial comments: 20-year-old female presenting for mental health evaluation. Patient believes she is and states that her urine is black. She was seen earlier today and had a negative test. Patient is laughing uncontrollably during the assessment and seem somewhat delusional. She denies suicidal ideation. - Related Data Home Medications Medication Instructions Recorded Confirmed fluPHENAZine decanoate [Prolixin 37.5 mg IM Q14D 09/11/23 09/11/23 Decanoate] Allergies Allergy/AdvReac Type Severity Reaction Status Date / Time No Known Allergies Allergy Verified 09/11/23 14:43 Review of Systems ROS Statement: Those systems with pertinent positive or pertinent negative responses have been documented in the HPI. ROS Other: All systems not noted in ROS Statement are negative. Past Medical History Past Medical History: Asthma Additional Past Medical History / Comment(s): ADHD History of Any Multi-Drug Resistant Organisms: None Reported Past Surgical History: No Surgical Hx Reported Past Anesthesia/Blood Transfusion Reactions: No Reported Reaction Past Psychological History: ADD/ADHD, Anxiety, Bipolar, Depression, Panic Disorder, Schizophrenia Smoking Status: Current every day smoker, Vaper Past Alcohol Use History: None Reported Past Drug Use History: Marijuana General Exam Limitations: no limitations General appearance: alert, anxious Head exam: Present: atraumatic, normocephalic Eye exam: Present: normal appearance, PERRL Respiratory exam: Present: normal lung sounds bilaterally. Absent: respiratory distress Cardiovascular Exam: Present: regular rate, normal rhythm GI/Abdominal exam: Present: soft. Absent: distended, tenderness, guarding Extremities exam: Present: normal inspection Neurological exam: Present: alert Psychiatric exam: Present: anxious, manic, other (Delusional, paranoid) Skin exam: Present: warm, dry, intact Course Vital Signs 09/11/23 19:24 Temperature 97.9 F Pulse Rate 60 Respiratory 16 Rate Blood Pressure 122/81 O2 Sat by Pulse 98 Oximetry - Reevaluation(s) Reevaluation #1: 09/11/23 20:07 Clear for EPS Medical Decision Making - Medical Decision Making Was pt. sent in by a medical professional or institution (GABRIELA Myers, [facility], urgent care, hospital, or alf...) When possible be specific @ -No Did you speak to anyone other than the patient for history (EMS, parent, family, police, friend...)? What history was obtained from this source @ -No Did you review nursing and triage notes (agree or disagree)? Why? @ -I reviewed and agree with nursing and triage notes Were old charts reviewed (outside hosp., previous admission, EMS record, old EKG, old radiological studies, urgent care reports/EKG's, alf records)? Report findings @ -No old charts were reviewed Differential Diagnosis (chest pain, altered mental status, abdominal pain women, abdominal pain men, vaginal bleeding, weakness, fever, dyspnea, syncope, headache, dizziness, GI bleed, back pain, seizure, CVA, palpatations, mental health, musculoskeletal)? @ -Differential Mental Health Depression, anxiety, bipolar, psychosis, schizophrenia, borderline personality, situational depression, adjustment disorder, behavioral disorder, brain tumor, malingering, substance abuse, encephalopathy, medication reaction, dementia, hypothyroidism, degenerative neurologic disorder, lupus.... This is not meant to be all-inclusive list EKG interpreted by me (3pts min.). @ -As above X-rays interpreted by me (1pt min.). @ -None done CT interpreted by me (1pt min.). @ -None done U/S interpreted by me (1pt. min.). @ -None done What testing was considered but not performed or refused? (CT, X-rays, U/S, labs)? Why? @ -None What meds were considered but not given or refused? Why? @ -None Did you discuss the management of the patient with other professionals (tresa pascual i.e. GABRIELA Myers, [facility], lab, RT, psych nurse, social media developer, nicker and breaker, teacher, security officer supervisor, case resource manager)? Give summary @ -Patient evaluated by EPS nurse and felt to be safe for discharge. Was smoking cessation discussed for >3mins.? @ -No Was critical care preformed (if so, how long)? @ -No Were there social determinants of health that impacted care today? How? (Homelessness, low income, unemployed, alcoholism, drug addiction, transportation, low edu. Level, literacy, decrease access to med. care, [facility], rehab)? @ -No Was there de-escalation of care discussed even if they declined (Discuss DNR or withdrawal of care, Hospice)? DNR status @ -No What co-morbidities impacted this encounter? (DM, HTN, Smoking, COPD, CAD, Cancer, CVA, ARF, Chemo, Hep., AIDS, mental health diagnosis, sleep apnea, morbid obesity)? @ -None Was patient admitted / discharged? Hospital course, mention meds given and route, prescriptions, significant lab abnormalities, going to OR and other pertinent info. @ -[Patient was medically cleared and evaluated by EPS. Patient has good outpatient follow-up and is not in need of inpatient psychiatric care at this time. Undiagnosed new problem with uncertain prognosis? @ -No Drug Therapy requiring intensive monitoring for toxicity (Heparin, Nitro, Insulin, Cardizem)? @ -No Were any procedures done? @ -No Diagnosis/symptom? @ -[Depression, homelessness Acute, or Chronic, or Acute on Chronic? @ -Acute Uncomplicated (without systemic symptoms) or Complicated (systemic symptoms)? @ -default Side effects of treatment? @ -No Exacerbation, Progression, or Severe Exacerbation? @ -No Poses a threat to life or bodily function? How? (Chest pain, [place], [place], pneumonia, PE, COPD, DKA, ARF, appy, cholecystitis, CVA, Diverticulitis, Homicidal, Suicidal, threat to staff... and all critical care pts) @ -[Low risk at this time Disposition Clinical Impression: Depression, Unspecified psychosis Disposition: HOME SELF-CARE Condition: Fair Instructions (If sedation given, give patient instructions): Depression (ED) Additional Instructions: Please follow up with community mental health Is patient prescribed a controlled substance at d/c from ED?: No Referrals: None,Stated [Primary Care Provider] - 1-2 days Time of Disposition: 22:34
== END 2023-09-11 23:01 | disposition home or self-care (01) ==
LOC: EC 19:04
DX: F32.A Depression, unspecified (principal); F29 Unspecified psychosis not due to a substance or known physiological condition; J45.909 Unspecified asthma, uncomplicated; F17.290 Nicotine dependence, other tobacco product, uncomplicated; F12.90 Cannabis use, unspecified, uncomplicated; Z86.59 Personal history of other mental and behavioral disorders
CPT/HCPCS: 99284

== ENCOUNTER 2023-09-12 07:28 | Emergency (ER) | payer OTHER ==
[2023-09-12 07:50] VITALS: RESP 18; TEMP 98
--- NOTE | 2023-09-12 07:53 | ED ---
General Adult HPI - General Chief complaint: Psychiatric Symptoms Stated complaint: Depression Time Seen by Provider: 09/12/23 07:42 Source: patient, RN notes reviewed Mode of arrival: ambulatory Limitations: no limitations - History of Present Illness Initial comments: Patient is a pleasant 22-year-old female presenting to the emergency department with concerns with depression. Patient has been depressed for a while. Patient denies suicidal thoughts at this time. Patient had nausea yesterday and does request COVID-19 testing. Patient denies any nausea today. Patient states she does have racing thoughts and has not been sleeping well. - Related Data Home Medications Medication Instructions Recorded Confirmed fluPHENAZine decanoate [Prolixin 37.5 mg IM Q14D 09/11/23 09/12/23 Decanoate] Allergies Allergy/AdvReac Type Severity Reaction Status Date / Time No Known Allergies Allergy Verified 09/12/23 12:35 Review of Systems ROS Statement: Those systems with pertinent positive or pertinent negative responses have been documented in the HPI. ROS Other: All systems not noted in ROS Statement are negative. Constitutional: Denies: fever Eyes: Denies: eye pain ENT: Denies: ear pain Respiratory: Denies: cough Cardiovascular: Denies: chest pain Endocrine: Denies: fatigue Gastrointestinal: Denies: abdominal pain Genitourinary: Denies: dysuria Musculoskeletal: Denies: back pain Past Medical History Past Medical History: Asthma Additional Past Medical History / Comment(s): ADHD History of Any Multi-Drug Resistant Organisms: None Reported Past Surgical History: No Surgical Hx Reported Past Anesthesia/Blood Transfusion Reactions: No Reported Reaction Past Psychological History: ADD/ADHD, Anxiety, Bipolar, Depression, Panic Disorder, Schizophrenia Smoking Status: Current every day smoker, Vaper Past Alcohol Use History: None Reported Past Drug Use History: Marijuana General Exam Limitations: no limitations General appearance: alert, in no apparent distress Head exam: Present: normocephalic Eye exam: Present: normal appearance Neck exam: Present: normal inspection Respiratory exam: Present: normal lung sounds bilaterally Cardiovascular Exam: Present: regular rate, normal rhythm GI/Abdominal exam: Present: soft. Absent: tenderness Extremities exam: Present: normal inspection Neurological exam: Present: alert Psychiatric exam: Present: depressed Skin exam: Present: normal color Course Vital Signs 09/12/23 07:34 Temperature 98 F Pulse Rate 92 Respiratory 18 Rate Blood Pressure 123/79 O2 Sat by Pulse 96 Oximetry Medical Decision Making - Medical Decision Making Was pt. sent in by a medical professional or institution (, GABRIELA, BARBED WIRE MACHINE OPERATOR, urgent care, hospital, or prison...) When possible be specific @ -No Did you speak to anyone other than the patient for history (EMS, parent, family, police, friend...)? What history was obtained from this source @ -No Did you review nursing and triage notes (agree or disagree)? Why? @ -I reviewed and agree with nursing and triage notes Were old charts reviewed (outside hosp., previous admission, EMS record, old EKG, old radiological studies, urgent care reports/EKG's, prison records)? Report findings @ -No old charts were reviewed Differential Diagnosis (chest pain, altered mental status, abdominal pain women, abdominal pain men, vaginal bleeding, weakness, fever, dyspnea, syncope, headache, dizziness, GI bleed, back pain, seizure, CVA, palpatations, mental health, musculoskeletal)? @ -Differential Mental Health Depression, anxiety, bipolar, psychosis, schizophrenia, borderline personality, situational depression, adjustment disorder, behavioral disorder, brain tumor, malingering, substance abuse, encephalopathy, medication reaction, dementia, hypothyroidism, degenerative neurologic disorder, lupus.... This is not meant to be all-inclusive list EKG interpreted by me (3pts min.). @ -As above X-rays interpreted by me (1pt min.). @ -None done CT interpreted by me (1pt min.). @ -None done U/S interpreted by me (1pt. min.). @ -None done What testing was considered but not performed or refused? (CT, X-rays, U/S, labs)? Why? @ -None What meds were considered but not given or refused? Why? @ -None Did you discuss the management of the patient with other professionals (tresa pascual i.e. , GABRIELA, BARBED WIRE MACHINE OPERATOR, lab, RT, psych nurse, elementary school social worker, die cast engineer, teacher, consumer safety officer, manager case)? Give summary @ -I did speak with Gely with mental health services with plan for discharge Was smoking cessation discussed for >3mins.? @ -No Was critical care preformed (if so, how long)? @ -No Were there social determinants of health that impacted care today? How? (Homelessness, low income, unemployed, alcoholism, drug addiction, transportation, low edu. Level, literacy, decrease access to med. care, shelter, rehab)? @ -No Was there de-escalation of care discussed even if they declined (Discuss DNR or withdrawal of care, Hospice)? DNR status @ -No What co-morbidities impacted this encounter? (DM, HTN, Smoking, COPD, CAD, Cancer, CVA, ARF, Chemo, Hep., AIDS, mental health diagnosis, sleep apnea, morbid obesity)? @ -None Was patient admitted / discharged? Hospital course, mention meds given and route, prescriptions, significant lab abnormalities, going to OR and other pertinent info. @ -Patient reevaluated and doing well. Arrangements have been made for follow up with [facility]. Patient does deny suicidal ideation and does contract for safety Undiagnosed new problem with uncertain prognosis? @ -No Drug Therapy requiring intensive monitoring for toxicity (Heparin, Nitro, Insulin, Cardizem)? @ -No Were any procedures done? @ -No Diagnosis/symptom? @ -Depression Acute, or Chronic, or Acute on Chronic? @ -Acute on chronic Uncomplicated (without systemic symptoms) or Complicated (systemic symptoms)? @ -default Side effects of treatment? @ -No Exacerbation, Progression, or Severe Exacerbation? @ -No Poses a threat to life or bodily function? How? (Chest pain, [place], [place], pneumonia, PE, COPD, DKA, ARF, appy, cholecystitis, CVA, Diverticulitis, Homicidal, Suicidal, threat to staff... and all critical care pts) @ -No - Lab Data Lab Results 09/12/23 09/12/23 Range/Units 07:58 07:58 Urine Opiates Screen Not Detected (NotDetected) Ur Oxycodone Screen Not Detected (NotDetected) Urine Methadone Screen Not Detected (NotDetected) Ur Propoxyphene Screen Not Detected (NotDetected) Ur Barbiturates Screen Not Detected (NotDetected) U Tricyclic Antidepress Not Detected (NotDetected) Ur Phencyclidine Scrn Not Detected (NotDetected) Ur Amphetamines Screen Not Detected (NotDetected) U Methamphetamines Scrn Not Detected (NotDetected) U Benzodiazepines Scrn Detected H (NotDetected) Urine Cocaine Screen Not Detected (NotDetected) U Marijuana (THC) Screen Detected H (NotDetected) Coronavirus (PCR) Not Detected (Not Detectd) Disposition Clinical Impression: Depression Disposition: HOME SELF-CARE Condition: Stable Instructions (If sedation given, give patient instructions): Depression (ED) Additional Instructions: Please follow-up with your primary doctor in the next day or 2 for recheck. Please follow-up with [facility] in the next one or 2 days for recheck. Return for thoughts of harming your self, worsening symptoms or other concerns. Is patient prescribed a controlled substance at d/c from ED?: No Referrals: Mansoor Grover MD [STAFF PHYSICIAN] - 1-2 days Time of Disposition: 14:01
[2023-09-12 08:34] LABS: Amphetamine Screen,Urine Not Detected (NotDetected); Barbiturate Screen,Urine Not Detected (NotDetected); Benzodiazepines Screen,Urine Detected (NotDetected); Cocaine Screen,Urine Not Detected (NotDetected); Methadone Screen, Urine Not Detected (NotDetected); Opiate Screen,Urine Not Detected (NotDetected); Oxycodone Screen, Urine Not Detected (NotDetected); Phencyclidine Screen,Urine Not Detected (NotDetected); Tricyclic Antidepressant,Urine Not Detected (NotDetected); Urn Cannabinoid Scrn Detected (NotDetected)
[2023-09-12 14:23] VITALS: BP 121/87; PULSE 89
== END 2023-09-12 14:08 | disposition home or self-care (01) ==
LOC: EC 07:28
DX: F32.A Depression, unspecified (principal); J45.909 Unspecified asthma, uncomplicated; F20.9 Schizophrenia, unspecified; F17.290 Nicotine dependence, other tobacco product, uncomplicated; F12.90 Cannabis use, unspecified, uncomplicated; Z20.822 Contact with and (suspected) exposure to COVID-19; Z79.899 Other long term (current) drug therapy
CPT/HCPCS: 80306; 82075; 87635; 99285

== ENCOUNTER 2023-09-14 11:54 | Inpatient (IN) | payer MEDICAID, OTHER ==
--- NOTE | 2023-09-14 12:35 | ED ---
General Adult HPI - General Chief complaint: Psychiatric Symptoms Stated complaint: mental health Time Seen by Provider: 09/14/23 12:20 Source: patient, police, RN notes reviewed, old records reviewed Mode of arrival: ambulatory Limitations: no limitations - History of Present Illness Initial comments: This is a 22-year-old female who presents emergency department stating that she is homicidal and suicidal and she states is is an ongoing issue with her. Patient denies any physical complaints today. Patient states she's also considering cannibals increase her so hungry. Patient denies any fever chills or cough per patient denies taking any overdose of any medicine. Patient denies any plan specifically to herself. Patient states she is sexually active but doesn't place . Patient denies any chest pain difficulty breathing or shortness of breath. Patient denies any abdominal. patient is laughing and giggling throughout her interview. - Related Data Home Medications Medication Instructions Recorded Confirmed fluPHENAZine decanoate [Prolixin 37.5 mg IM Q14D 09/11/23 09/14/23 Decanoate] Allergies Allergy/AdvReac Type Severity Reaction Status Date / Time No Known Allergies Allergy Verified 09/14/23 12:37 Review of Systems ROS Statement: Those systems with pertinent positive or pertinent negative responses have been documented in the HPI. ROS Other: All systems not noted in ROS Statement are negative. Past Medical History Past Medical History: Asthma Additional Past Medical History / Comment(s): ADHD History of Any Multi-Drug Resistant Organisms: None Reported Past Surgical History: No Surgical Hx Reported Past Anesthesia/Blood Transfusion Reactions: No Reported Reaction Past Psychological History: ADD/ADHD, Anxiety, Bipolar, Depression, Panic Disorder, Schizophrenia Smoking Status: Current every day smoker, Vaper Past Alcohol Use History: None Reported Past Drug Use History: Cocaine, Heroin, Marijuana, Methamphetamine General Exam - General Exam Comments Initial Comments: GENERAL: Patient is well-developed and well-nourished. Patient is nontoxic and well-h ydrated and is in no acute distress. ENT: Neck is soft and supple. No significant lymphadenopathy is noted. Oropharynx is clear. Moist mucous membranes. Neck has full range of motion without elic iting any pain. EYES: The sclera were anicteric and conjunctiva were pink and moist. Extraocular movements were intact and pupils were equal round and reactive to light. Eyelids were unremarkable. PULMONARY: Unlabored respirations. Good breath sounds bilaterally. No audible rales rhonchi or wheezing was noted. CARDIOVASCULAR: There is a regular rate and rhythm without any murmurs gallops or rubs. ABDOMEN: Soft and nontender with normal bowel sounds. No palpable organomegaly was noted. There is no palpable pulsatile mass. SKIN: Skin is clear with no lesions or rashes and otherwise unremarkable. NEUROLOGIC: Patient is alert and oriented x3. Cranial nerves II through XII are grossly intact. Motor and sensory are also intact. Normal speech, volume and content. Symmetrical smile. MUSCULOSKELETAL: Normal extremities with adequate strength and full range of motion. No lower extremity swelling or edema. No calf tenderness. LYMPHATICS: No significant lymphadenopathy is noted PSYCHIATRIC: Patient states she is suicidal and homicidal but she is laughing very playful while telling me this. Limitations: no limitations Course Vital Signs 09/14/23 09/14/23 12:05 13:58 Temperature 97.8 F Pulse Rate 90 Respiratory 20 18 Rate Blood Pressure 121/71 O2 Sat by Pulse 99 Oximetry Medical Decision Making - Medical Decision Making Was pt. sent in by a medical professional or institution (, PA, FITNESS AND WELLNESS DIRECTOR, urgent care, hospital, or long term...) When possible be specific @ -No Did you speak to anyone other than the patient for history (EMS, parent, family, police, friend...)? What history was obtained from this source @ -No Did you review nursing and triage notes (agree or disagree)? Why? @ -I reviewed and agree with nursing and triage notes Were old charts reviewed (outside hosp., previous admission, EMS record, old EKG, old radiological studies, urgent care reports/EKG's, long term records)? Report findings @ -I reviewed prior charts apart lab work on this patient. Differential Diagnosis (chest pain, altered mental status, abdominal pain women, abdominal pain men, vaginal bleeding, weakness, fever, dyspnea, syncope, headache, dizziness, GI bleed, back pain, seizure, CVA, palpatations, mental health, musculoskeletal)? @ -Differential Mental Health Depression, anxiety, bipolar, psychosis, schizophrenia, borderline personality, situational depression, adjustment disorder, behavioral disorder, brain tumor, malingering, substance abuse, encephalopathy, medication reaction, dementia, hypothyroidism, degenerative neurologic disorder, lupus.... This is not meant to be all-inclusive list EKG interpreted by me (3pts min.). @ -As above X-rays interpreted by me (1pt min.). @ -None done CT interpreted by me (1pt min.). @ -None done U/S interpreted by me (1pt. min.). @ -None done What testing was considered but not performed or refused? (CT, X-rays, U/S, labs)? Why? @ -None What meds were considered but not given or refused? Why? @ -None Did you discuss the management of the patient with other professionals (professionals i.e. , PA, FITNESS AND WELLNESS DIRECTOR, lab, RT, psych nurse, manager social responsibility, scrap hooker, teacher, third officer, residential case manager)? Give summary @ -I spoke with the EPS nurse after he evaluated the patient Was smoking cessation discussed for >3mins.? @ -No Was critical care preformed (if so, how long)? @ -No Were there social determinants of health that impacted care today? How? (Homelessness, low income, unemployed, alcoholism, drug addiction, transpo rtation, low edu. Level, literacy, decrease access to med. care, [facility], rehab)? @ -No Was there de-escalation of care discussed even if they declined (Discuss DNR or withdrawal of care, Hospice)? DNR status @ -No What co-morbidities impacted this encounter? (DM, HTN, Smoking, COPD, CAD, Cancer, CVA, ARF, Chemo, Hep., AIDS, mental health diagnosis, sleep apnea, morbid obesity)? @ -None Was patient admitted / discharged? Hospital course, mention meds given and route, prescriptions, significant lab abnormalities, going to OR and other pertinent info. @ -EPS nurse felt that a petition and I filled out a clinical rotation for this patient patient will need to be transferred because we no longer have any psychiatric beds here Undiagnosed new problem with uncertain prognosis? @ -No Drug Therapy requiring intensive monitoring for toxicity (Heparin, Nitro, Insulin, Cardizem)? @ -No Were any procedures done? @ -No Diagnosis/symptom? @ -Bipolar Acute, or Chronic, or Acute on Chronic? @ -Acute on chronic Uncomplicated (without systemic symptoms) or Complicated (systemic symptoms)? @ -Complicated Side effects of treatment? @ -No Exacerbation, Progression, or Severe Exacerbation? @ -No Poses a threat to life or bodily function? How? (Chest pain, [place], [place], pneumonia, PE, COPD, DKA, ARF, appy, cholecystitis, CVA, Diverticulitis, Homicidal, Suicidal, threat to staff... and all critical care pts) @ -No Diagnosis/symptom? @ -Suicidal ideations Acute, or Chronic, or Acute on Chronic? @ -Acute Uncomplicated (without systemic symptoms) or Complicated (systemic symptoms)? @ -Complicated Side effects of treatment? @ -none Exacerbation, Progression, or Severe Exacerbation] @ -no Poses a threat to life or bodily function? @ -no - Lab Data Lab Results 09/14/23 Range/Units 12:59 Urine Opiates Screen Not Detected (NotDetected) Ur Oxycodone Screen Not Detected (NotDetected) Urine Methadone Screen Not Detected (NotDetected) Ur Propoxyphene Screen Not Detected (NotDetected) Ur Barbiturates Screen Not Detected (NotDetected) U Tricyclic Antidepress Not Detected (NotDetected) Ur Phencyclidine Scrn Not Detected (NotDetected) Ur Amphetamines Screen Not Detected (NotDetected) U Methamphetamines Scrn Not Detected (NotDetected) U Benzodiazepines Scrn Not Detected (NotDetected) Urine Cocaine Screen Not Detected (NotDetected) U Marijuana (THC) Screen Detected H (NotDetected) Disposition Clinical Impression: Suicidal ideation, Bipolar disorder Disposition: TRANSFER TO PSYCH HOSP/UNIT Referrals: None,Stated [Primary Care Provider] - 1-2 days Time of Disposition: 16:30
[2023-09-14 13:20] LABS: Amphetamine Screen,Urine Not Detected (NotDetected); Barbiturate Screen,Urine Not Detected (NotDetected); Benzodiazepines Screen,Urine Not Detected (NotDetected); Cocaine Screen,Urine Not Detected (NotDetected); Methadone Screen, Urine Not Detected (NotDetected); Opiate Screen,Urine Not Detected (NotDetected); Oxycodone Screen, Urine Not Detected (NotDetected); Phencyclidine Screen,Urine Not Detected (NotDetected); Tricyclic Antidepressant,Urine Not Detected (NotDetected); Urn Cannabinoid Scrn Detected (NotDetected)
[2023-09-14 17:04] LABS: Basophils % (A) 0 %; Eosinophils % (A) 0 %; HCT 42.3 % (34.0-46.0); HGB 13.9 gm/dL (11.4-16.0); Lymphocytes # (A) 2.4 k/uL (1.0-4.8); Lymphocytes % (A) 25 %; MCH 28.5 pg (25.0-35.0); MCHC 32.9 g/dL (31.0-37.0); MCV 86.8 fL (80.0-100.0); Mean Platelet Volume 9.8; Monocytes # (A) 0.5 k/uL (0-1.0); Monocytes % (A) 6 %; Neutrophils # (A) 6.4 k/uL (1.3-7.7); Neutrophils % (A) 67 %; Platelet Count 250 k/uL (150-450); RBC 4.88 m/uL (3.80-5.40); RDW 14.6 % (11.5-15.5); WBC 9.5 k/uL (3.8-10.6)
[2023-09-14 17:20] LABS: ALT 20 U/L (4-34); AST 32 U/L (14-36); African American GFR (CKD) >90 (>60 ml/min/1.73 sqM); Albumin 4.3 g/dL (3.5-5.0); Alkaline Phosphatase 68 U/L (38-126); Anion Gap 9 mmol/L; Blood Urea Nitrogen 12 mg/dL (7-17); Calcium 9.6 mg/dL (8.4-10.2); Carbon Dioxide 27 mmol/L (22-30); Chloride 104 mmol/L (98-107); Glucose 116 mg/dL (74-99); Non-African American GFR(CKD) >90 (>60 ml/min/1.73 sqM); Potassium 3.6 mmol/L (3.5-5.1); Sodium 140 mmol/L (137-145); Total Bilirubin 0.7 mg/dL (0.2-1.3); Total Protein 7.4 g/dL (6.3-8.2)
[2023-09-15] MEDS ORDERED: ACETAMINOPHEN TAB 500 MG TAB PO STA (11:38)
[2023-09-15] MEDS ORDERED: LORazepam 1 MG TAB PO STA (13:37)
[2023-09-15] MEDS ORDERED: haloperidoL 5 MG TAB PO PRN (15:15)
[2023-09-15] MEDS ORDERED: MAGNESIUM HYDROXIDE 2,400 MG/30 ML CUP PO PRN (15:15)
[2023-09-15] MEDS ORDERED: HALOPERIDOL LACTATE 5 MG/ML 1 ML VIAL IM PRN (15:15)
[2023-09-15] MEDS ORDERED: LORazepam 2 MG/ML INJ IM PRN (15:18)
[2023-09-16] MEDS ORDERED: BENZOCAINE 20 % GEL 11.9 GM TUBE MM ONE (04:26)
--- NOTE | 2023-09-16 04:31 | P.MDCNMH ---
History of Present Illness H&P Date: 09/16/23 Chief Complaint: medical eval 22 year old female with bipolar disorder patient admits to being homeless, coming in for suicidal ideation and depression she denies any fever chills, cough, chest pain , trouble breathing , nausea or vomiting she is asking for orajel due to erupting molars and dental pain she is asking for benadryl due to occasional allergy symptoms she admits to tobacco smoking, and polysubstance abuse. denies alcohol review of systems Pertinent positives as noted in HPI. All other systems were reviewed and are negative on exam Constitutional: No acute distress, conversant Eyes: Anicteric sclerae, moist conjunctiva, Pupils equal round reactive to light Lungs: Clear to auscultation Clear to percussion Normal respiratory effort, no accessory muscle use Cardiovascular: Heart regular in rate and rhythm, No murmurs, gallops, or rubs No peripheral edema Abdominal: Soft Nontender, no guarding, rebound or rigidity Abdomen moving with respiration Normoactive bowel sounds Extremities: No digital cyanosis No clubbing Pedal pulses intact and symmetrical Radial pulses intact and symmetrical No calf tenderness Psychiatric: Alert and oriented to person, place and time Neuro Muscles Strength 5/5 in all 4 extremities Sensation to light touch grossly present throughout Cranial nerves II-XII grossly intact Past Medical History Past Medical History: Asthma Additional Past Medical History / Comment(s): ADHD History of Any Multi-Drug Resistant Organisms: None Reported Past Surgical History: No Surgical Hx Reported Past Anesthesia/Blood Transfusion Reactions: No Reported Reaction Smoking Status: Current every day smoker, Vaper Medications and Allergies Home Medications Medication Instructions Recorded Confirmed Type fluPHENAZine decanoate [Prolixin 37.5 mg IM Q14D 09/11/23 09/14/23 History Decanoate] Allergies Allergy/AdvReac Type Severity Reaction Status Date / Time No Known Allergies Allergy Verified 09/14/23 12:37 Physical Exam Vitals: Vital Signs Temp Pulse Pulse Pulse Resp BP BP 09/16/23 02:00 97.9 F 93 14 09/15/23 16:15 97.0 F L 75 18 124/63 09/15/23 15:41 84 16 125/78 09/15/23 11:46 87 18 120/83 09/15/23 05:00 72 18 118/74 BP Pulse Ox 09/16/23 02:00 126/61 09/15/23 16:15 98 09/15/23 15:41 100 09/15/23 11:46 98 09/15/23 05:00 98 Intake and Output 09/15/23 09/15/23 09/16/23 14:59 22:59 06:59 Other: Weight 157.4 kg Cranial Nerve Examination - Cranial Nerves Cranial Nerve II- Optic: Intact Cranial Nerve III- Oculomotor: Intact Cranial Nerve IV- Trochlear: Intact Cranial Nerve V- Trigeminal: Intact Cranial Nerve - Abducens: Intact Cranial Nerve VII- Facial: Intact Cranial Nerve VIII- Auditory: Intact Cranial Nerve IX- Glossopharyngeal: Intact Cranial Nerve X- Vagus: Intact Cranial Nerve XI- Accessory: Intact Cranial Nerve XII- Hypoglossal: Intact Results CBC & Chem 7: 09/14/23 16:21 09/14/23 16:21 Assessment and Plan Assessment: depression and suicidal ideation management per psych dental ache orajel as needed consider following up with dentist upon discharge tobacco smoking counseled to quit smoking Nicotine replacement therapy offered blood work reviewed unremarkalbe urine drug screen positive for marijuana thank you for this consultation , patient is stable from medical stand point
[2023-09-16] MEDS: NICOTINE 14MG/24HR PATCH TRANSDERM SCH (08:02)
[2023-09-16] MEDS: LORazepam 1 MG TAB PO PRN ×2 (08:42→19:42)
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
[2023-09-16] MEDS: IBUPROFEN 600 MG TAB PO PRN (13:50)
[2023-09-16] MEDS ORDERED: MIRTAZAPINE 15 MG TAB PO SCH (21:00)
[2023-09-17] MEDS: NICOTINE 14MG/24HR PATCH TRANSDERM SCH (08:16)
[2023-09-17] MEDS: IBUPROFEN 600 MG TAB PO PRN ×2 (08:17→20:27)
--- NOTE | 2023-09-17 11:37 | P.PN ---
Progress Note - Text Progress Note Date: 09/17/23 Interval history: Patient was seen today in the yang, agreeable to speak with provider in office. She continues to be fairly bizarre. Patient claims that she is "not good", and tired of people yelling at her (friends) She has been mainly isolating in her room and not going to groups. She continues to display very poor insight and judgment. Tolerating medication adjustment well. She continues to state that she has racing thoughts, states that she had difficulty sleeping last night. At this time she is denying any suicidal or homicidal ideations intent or plan. Denying any auditory or visual hallucinations. patient is compliant with medication Mental status examination: General Appearance: Patient appears to be short stature, mildly overweight, stated age is alert, bizarre at times.. Patient appears to have poor hygiene and grooming. Behavior: Patient is seated without any agitated behavior. less Evasive Speech: Patient's speech is fluent and nonpressured. [place]. Mood/Affect: Patient reports their mood is improving mildly, affect is congruent and constricted. Suicidality/Homicidality: She denies HI, denies any suicidal thoughts. Perceptions: Patient denies any visual hallucinations and denies any AH. Though content/process: positive content. Bizarre thoughts. [place]. Memory and concentration: AOX3, grossly intact for the purposes of this session Judgment and insight: chronically poor IMPRESSIONS: Psychosis unspecified Cannabis use disorder Nicotine dependence PLAN: -Patient is admitted under involuntary status to [facility] for stabilization of psychiatric symptoms and safety. Patient has not signed adult voluntary form and has signed the medication consent and is it placed in patient's chart -Medications :Prolixin 3mg bid for mood stabilization/psychosis, increase Remeron to 15mg qhs for sleep/mood/anxiety, trazodone 50 mg qhs for insomnia. Prolixin D 37.5I M bernice 09/07 and next dose to be given on 09/22 -Ativan [and Haldol] PRN for agitation/aggression -NRT - nicotine patch -SW on board for discharge planning. Encourage patient to participate in groups to work on coping skills. Patient on full court order. hopeful for discharge thursday after patient receives her second RAMÍREZ dose. correction vs. motel/hotel upon discharge
[2023-09-17] MEDS: ACETAMINOPHEN TAB 325 MG TAB PO PRN (12:05)
[2023-09-17] MEDS: LORazepam 1 MG TAB PO PRN (13:21)
[2023-09-17] MEDS: diphenhydrAMINE 25 MG CAP PO PRN (18:27)
[2023-09-17] MEDS: MIRTAZAPINE 15 MG TAB PO SCH (20:27)
[2023-09-17] MEDS: BENZOCAINE 20 % GEL 11.9 GM TUBE MM PRN (20:28)
[2023-09-18] MEDS: IBUPROFEN 600 MG TAB PO PRN ×2 (05:55→20:07)
[2023-09-18] MEDS: NICOTINE GUM (POLACRILEX) 2 MG GUM BUCCAL PRN (05:56)
[2023-09-18] MEDS: NICOTINE 14MG/24HR PATCH TRANSDERM SCH (08:15)
--- NOTE | 2023-09-18 11:40 | P.PN ---
Progress Note - Text Progress Note Date: 09/18/23 Interval history: Patient was seen today in the yang, agreeable to speak with provider in office. She claims to be "amazing" She has been participating in groups. Tolerating medication adjustment well. She continues to state that she has racing thoughts, but they are improving States that she slept great last night. she was focused on dishcarge and claims that she got a hold of her boyfriend who is in a motel. At this time she is denying any suicidal or homicidal ideations intent or plan. Denying any auditory or visual hallucinations. patient is compliant with medication. focused on discharge. Mental status examination: General Appearance: Patient appears to be short stature, mildly overweight, stated age is alert, bizarre at times, improving mildly. Patient appears to have improving hygiene and grooming. improving Behavior: Patient is seated without any agitated behavior. less Evasive. improving Speech: Patient's speech is fluent and nonpressured. Mood/Affect: Patient reports their mood is improving mildly, affect is congruent and constricted. improving Suicidality/Homicidality: She denies HI, denies any suicidal thoughts. Perceptions: Patient denies any visual hallucinations and denies any AH. Though content/process: positive content. [place]. mildly improving. focused on discharge Memory and concentration: AOX3, grossly intact for the purposes of this session Judgment and insight: chronically poor, mildly improving IMPRESSIONS: Psychosis unspecified Cannabis use disorder Nicotine dependence PLAN: -Patient is admitted under involuntary status to [facility] for stabilization of psychiatric symptoms and safety. Patient has not signed adult voluntary form and has signed the medication consent and is it placed in patient's chart Patient currently on court order. -Medications : Prolixin 3mg bid for mood stabilization/psychosis, Remeron 15mg qhs for sleep/mood/anxiety, trazodone 50 mg qhs for insomnia. Prolixin D 37.5 IM givin 09/07 and next dose to be given on 09/22 -Ativan [and Haldol] PRN for agitation/aggression -NRT - nicotine patch -SW on board for discharge planning. Encourage patient to participate in groups to work on coping skills. Patient on full court order. hopeful for discharge thursday after patient receives her second RAMÍREZ dose, and continues to improve. Boyfriend living in motel, where she plans to stay upon discharge. Sw to follow up on this and help to coordinate d/c
[2023-09-18] MEDS: diphenhydrAMINE 25 MG CAP PO PRN ×2 (11:45→20:07)
[2023-09-18] MEDS: BENZOCAINE/MENTHOL LOZENG 1 EACH LOZENGE MUCOUS MEM PRN (17:08)
[2023-09-18] MEDS: BENZOCAINE 20 % GEL 11.9 GM TUBE MM PRN ×2 (17:54→20:08)
[2023-09-18] MEDS: ACETAMINOPHEN TAB 325 MG TAB PO PRN (17:55)
[2023-09-18] MEDS: MIRTAZAPINE 15 MG TAB PO SCH (20:06)
[2023-09-18] MEDS: LORazepam 1 MG TAB PO PRN (20:10)
[2023-09-19] MEDS: NICOTINE 14MG/24HR PATCH TRANSDERM SCH (09:23)
[2023-09-19] MEDS: IBUPROFEN 600 MG TAB PO PRN ×2 (09:42→18:11)
[2023-09-19] MEDS: LORazepam 1 MG TAB PO PRN (13:07)
[2023-09-19] MEDS: BENZOCAINE 20 % GEL 11.9 GM TUBE MM PRN (16:40)
[2023-09-19] MEDS: BENZOCAINE/MENTHOL LOZENG 1 EACH LOZENGE MUCOUS MEM PRN (16:41)
[2023-09-19] MEDS: diphenhydrAMINE 25 MG CAP PO PRN (16:41)
[2023-09-19] MEDS: MIRTAZAPINE 15 MG TAB PO SCH (21:13)
[2023-09-20] MEDS: BENZOCAINE 20 % GEL 11.9 GM TUBE MM PRN ×2 (01:41→08:21)
[2023-09-20] MEDS: IBUPROFEN 600 MG TAB PO PRN ×3 (01:42→15:24)
[2023-09-20] MEDS: NICOTINE 14MG/24HR PATCH TRANSDERM SCH (08:20)
[2023-09-20] MEDS: BENZOCAINE/MENTHOL LOZENG 1 EACH LOZENGE MUCOUS MEM PRN ×2 (08:31→15:23)
--- NOTE | 2023-09-20 09:33 | P.PN ---
Progress Note - Text Interval history: Patient was seen [wandering the hallways] and was directable and agreeable to speak with fiction writer. During the interview, patient made several bizarre statements. She states that she speaks every language in the world. She states that she is built like shrugged and can beat up other people. She states that all women in the world originated from here. States that she wants to go around hugging people At this time patient denies any suicidal or homicidal ideations intent or plan. Denies any Auditory or visual hallucinations. Patient denies any side effects from the medications and has been compliant with meds. Mental status exam: General Appearance: [Patient appears to be stated age is alert, directable, and cooperative.] Behavior: Intrusive Speech: Hyperverbal Mood/Affect: Mood is improving mildly, affect is congruent and constricted. Suicidality/Homicidality: Patient denies having any suicidal or homicidal ideation intent or plan. Perceptions: Patient denies any auditory or visual hallucinations. Though content/process: Several delusions. Loose associations. Memory and concentration: AOX3, grossly intact for the purposes of this session Judgment and insight: Poor Assessment/Plan: Continue with current diagnosis. Patient continues to meet criteria for inpatient psychiatric admission for symptom stabilization and safety.[Patient will be maintained on current psychotropic medication regimen.] Monitor for medication compliance and for any psychotropic medication side effects. Will continue to monitor ongoing response to treatment. Encouraged participation in milieu.
--- NOTE | 2023-09-20 09:34 | P.PN ---
Progress Note - Text Interval history: Patient was seen [wandering the hallways] and was directable and agreeable to speak with ad writer. States that she is doing "all right". At this time patient denies any suicidal or homicidal ideations intent or plan. Denies any Auditory or visual hallucinations. Patient denies any side effects from the medications and has been compliant with meds. Mental status exam: General Appearance: [Patient appears to be stated age is alert, directable, and cooperative.] Behavior: [No agitated behavior. Patient is calm and directable] Speech: Patient's speech is fluent and nonpressured. Mood/Affect: Mood is improving mildly, affect is congruent and constricted. Suicidality/Homicidality: Patient denies having any suicidal or homicidal ideation intent or plan. Perceptions: Patient denies any auditory or visual hallucinations. Though content/process: [There is no evidence of any delusional thought content and thought process is linear and goal-directed.] Memory and concentration: AOX3, grossly intact for the purposes of this session Judgment and insight: improving mildly Assessment/Plan: Continue with current diagnosis. Patient continues to meet criteria for inpatient psychiatric admission for symptom stabilization and safety.[Patient will be maintained on current psychotropic medication regimen.] Monitor for medication compliance and for any psychotropic medication side effects. Will continue to monitor ongoing response to treatment. Encouraged participation in milieu.
[2023-09-20] MEDS: ACETAMINOPHEN TAB 325 MG TAB PO PRN (10:39)
[2023-09-20] MEDS: LORazepam 1 MG TAB PO PRN (16:12)
[2023-09-20] MEDS: MIRTAZAPINE 15 MG TAB PO SCH (21:37)
[2023-09-21] MEDS: BENZOCAINE 20 % GEL 11.9 GM TUBE MM PRN ×3 (02:27→20:38)
[2023-09-21] MEDS: IBUPROFEN 600 MG TAB PO PRN ×2 (02:27→15:28)
[2023-09-21] MEDS: NICOTINE 14MG/24HR PATCH TRANSDERM SCH (08:31)
[2023-09-21] MEDS: ACETAMINOPHEN TAB 325 MG TAB PO PRN ×3 (08:57→20:36)
[2023-09-21] MEDS: LORazepam 1 MG TAB PO PRN ×2 (10:31→21:08)
--- NOTE | 2023-09-21 10:34 | P.PN ---
Progress Note - Text Progress Note Date: 09/21/23 Interval history: Patient was seen wandering the hallways and was directable and agreeable to speak with automobile service writer. States that she is doing "really good". At this time patient denies any suicidal or homicidal ideations intent or plan. Denies any Auditory or visual hallucinations. Patient is sleeping well, with "happy dreams" Patient denies any side effects from the medications and has been compliant with meds. Counseled on abstaining from marijuana use. Mental status exam: General Appearance: Patient appears to be stated age is alert, directable, and cooperative. Behavior: No agitated behavior. Patient is calm and directable Speech: Patient's speech is fluent and nonpressured. Mood/Affect: Mood is improving affect is congruent and bright/appropriate Suicidality/Homicidality: Patient denies having any suicidal or homicidal ideation intent or plan. Perceptions: Patient denies any auditory or visual hallucinations. Though content/process: There is no evidence of any delusional thought content and thought process is linear and goal-directed. focused on discharge Memory and concentration: AOX3, grossly intact for the purposes of this session Judgment and insight: improving Assessment/Plan: Continue with current diagnosis. Patient continues to meet criteria for inpatient psychiatric admission for symptom stabilization and safety. Patient will be maintained on current psychotropic medication regimen. Monitor for medication compliance and for any psychotropic medication side effects. Will continue to monitor ongoing response to treatment. Encouraged participation in milieu. -Increase prolixin D 50mg IM q14 days, first dose today, next due 10/05 SW on board for discharge planning. Encourage patient to participate in groups to work on coping skills. Patient on full court order. discharge 09/22 after patient receives her second RAMÍREZ dose 09/21. Boyfriend living in [facility], where she plans to stay upon discharge. Sw to follow up on this and help to coordinate.
[2023-09-21] MEDS ORDERED: fluPHENAZine DECANOATE 25 MG/ML 5ML MDV IM SCH (18:00)
[2023-09-21] MEDS: MIRTAZAPINE 15 MG TAB PO SCH (20:36)
[2023-09-21] MEDS: BENZOCAINE/MENTHOL LOZENG 1 EACH LOZENGE MUCOUS MEM PRN (20:48)
[2023-09-22] MEDS: IBUPROFEN 600 MG TAB PO PRN (00:36)
[2023-09-22 01:00] VITALS: BP 115/73; PULSE 85; RESP 13; TEMP 97.4
[2023-09-22] MEDS: NICOTINE GUM (POLACRILEX) 2 MG GUM BUCCAL PRN (08:13)
[2023-09-22] MEDS: NICOTINE 14MG/24HR PATCH TRANSDERM SCH ×2 (08:13→10:20)
[2023-09-22] MEDS: ACETAMINOPHEN TAB 325 MG TAB PO PRN (08:29)
--- NOTE | 2023-09-22 10:31 | P.DS ---
Providers Date of admission: 09/15/23 15:12 Expected date of discharge: 09/22/23 Attending physician: Shayne Garcia MD Consults: 09/15/23 16:49 Consult Physician Routine Consulting Provider: Anastacia Herrera Consult Reason/Comments: history and physical Do you want consulting provider notified?: Yes Primary care physician: Stated None - Discharge Diagnosis(es) (1) Unspecified psychosis Current Visit: Yes Status: Acute Priority: High (2) Cannabis use disorder Current Visit: Yes Status: Acute Priority: High (3) Nicotine dependence Current Visit: Yes Status: Acute Priority: Low Hospital Course: Admission HPI: Admission note was completed by manual writer "Patient is a 22-year-old female, homeless, currently homeless. no children. Patient presented to the hospital yesterday and was evaluated for psychosis. She spoke about multiple psychiatric hospitals that she has been to and has had several ER visits since previous [facility] Patient had a urine drug screen was positive for THC. She is currnetly on a court order. Patient was wandering the halls today and was agreeable to speak to manual writer. She was rambliing, disorganized, semantically preoccupied. She states that his been staying with multiple men, trading a space ffor sex. She was fairly evasive about what had occurred and where she came from. She states that she has been using marijuana and some etoh, drining about 1-2 beers/day, mainly complaining of homelessness, states that she has not been consisitent with po meds. States that she is not having homicidal ideations or suicidal ideations Denies any auditory hallucinations denies any visual hallucinations. States that she does have anxiety. She also struggles with racing thoughts. Patient admits to using marijuana frequently, cigarettes daily, states that she drinks beer as notified above." Hospital course: Upon admission to the unit patient was admitted involuntarily on an active court order for mental treatment. Patient got along well with other patients on the unit and followed unit protocol. Patient was compliant with the medications and denied any side effects throughout hospital course. Patient was started on by mouth Prolixin 3 mg twice a day for psychosis, patient was given Prolixin D 50 mg IM on 09/21 and will be due for next dose on 10/05. Patient is also on Remeron 15 mg daily at bedtime for mood/insomnia. Patient spoke of her stressors and engaged in therapy both group and individual. Patient was also seen by medical team for history and physical exam. Throughout the course of the hospitalization patient gradually improved with regards to mood, anxiety, psychosis, hallucinations, sleep and returned back to their baseline level of functioning. On the day of discharge patient denied any suicidal or homicidal ideations intent or plan denied any auditory or visual hallucinations. Patient endorsed wanting to live for her future and her health. The patient denied any access to guns or weapons. Patient denied any paranoia and did not endorse any delusions. Patient does have a significant history of substance abuse and was counseled on abstaining from all substances including alcohol and marijuana. Patient elected to do outpatient substance use treatment program through [facility]. Patient was also counseled on the medications and need for regular compliance and was encouraged to follow-up with their outpatient appointment for mental health and also for primary care. Prior to discharge a family meeting with her boyfriend will be arranged by adoption social worker to answer any questions and ensure safety upon discharge. Patient's boyfriend is currently staying in a motel which the patient can return to upon discharge today, she will follow up closely with [facility]. Mental status exam: General Appearance: Patient appears to be mildly overweight, short hair, stated age is alert, pleasant, and cooperative. Patient is in no acute distress and has improved hygiene and grooming Behavior: Patient is calmly seated without any agitated behavior. Speech: Patient's speech is fluent and nonpressured. Mood/Affect: Patient reports their mood is "better", affect is congruent and euthymic. Suicidality/Homicidality: Patient denies having any suicidal or homicidal idea tion intent or plan. Perceptions: Patient denies any auditory or visual hallucinations. Though content/process: There is no evidence of any delusional thought content and thought process is linear and goal-directed. more future oriented Memory and concentration: AOX3, grossly intact for the purposes of this session. Can spell "WORLD" backwards correctly. Judgment and insight: chronically poor, however has improved with guarded prognosis Impression: Psychosis unspecified Cannabis use disorder Nicotine dependence Plan: -Continue with discharge today as patient has improved and stabilized p sychiatrically and is not currently an imminent threat to herself and/or others. Patient will remain at chronically elevated risk for harm to self and/or others due to here impulsivity and substance abuse. -Continue medications: Prolixin by mouth discontinued, Prolixin D 50 mg IM dose was given on 09/21, next dose will be doing to 14 days on 10/05. Remeron 15 mg daily at bedtime for insomnia/mood. -Patient was counseled on the need for medication compliance and appropriate follow-up at mental health and also primary care for medical issues. Patient verbalized understanding and agreed. -Social work to arrange for and conduct family meeting to ensure safety upon discharge and answer any questions/concerns. Social work also to arrange for patients follow up appointments with [facility] for psychiatric care along with follow up with primary care provider. -Patient counseled on abstaining from recreational drugs and marijuana and alcohol. Was informed/educated on the adverse effects on their physical and mental health. Patient verbally agreed and understood. -Patient was instructed to return to the hospital or seek immediate medical care if their psychiatric or medical symptoms do worsen or reoccur. Allergies Allergy/AdvReac Type Severity Reaction Status Date / Time No Known Allergies Allergy Verified 09/14/23 12:37 Laboratory Results WBC 9.5 k/uL (3.8-10.6) 09/14/23 16:21 RBC 4.88 m/uL (3.80-5.40) 09/14/23 16:21 Hgb 13.9 gm/dL (11.4-16.0) 09/14/23 16:21 Hct 42.3 % (34.0-46.0) 09/14/23 16:21 MCV 86.8 fL (80.0-100.0) 09/14/23 16:21 MCH 28.5 pg (25.0-35.0) 09/14/23 16:21 MCHC 32.9 g/dL (31.0-37.0) 09/14/23 16:21 RDW 14.6 % (11.5-15.5) 09/14/23 16:21 Plt Count 250 k/uL (150-450) 09/14/23 16:21 MPV 9.8 09/14/23 16:21 Neutrophils % 67 % 09/14/23 16:21 Lymphocytes % 25 % 09/14/23 16:21 Monocytes % 6 % 09/14/23 16:21 Eosinophils % 0 % 09/14/23 16:21 Basophils % 0 % 09/14/23 16:21 Neutrophils # 6.4 k/uL (1.3-7.7) 09/14/23 16:21 Lymphocytes # 2.4 k/uL (1.0-4.8) 09/14/23 16:21 Monocytes # 0.5 k/uL (0-1.0) 09/14/23 16:21 Eosinophils # 0.0 k/uL (0-0.7) 09/14/23 16:21 Basophils # 0.0 k/uL (0-0.2) 09/14/23 16:21 Sodium 140 mmol/L (137-145) 09/14/23 16:21 Potassium 3.6 mmol/L (3.5-5.1) 09/14/23 16:21 Chloride 104 mmol/L (98-107) 09/14/23 16:21 Carbon Dioxide 27 mmol/L (22-30) 09/14/23 16:21 Anion Gap 9 mmol/L 09/14/23 16:21 BUN 12 mg/dL (7-17) 09/14/23 16:21 Creatinine 0.61 mg/dL (0.52-1.04) 09/14/23 16:21 Est GFR (CKD-EPI)AfAm >90 (>60 ml/min/1.73 sqM) 09/14/23 16:21 Est GFR (CKD-EPI)NonAf >90 (>60 ml/min/1.73 sqM) 09/14/23 16:21 Glucose 116 mg/dL (74-99) H 09/14/23 16:21 Calcium 9.6 mg/dL (8.4-10.2) 09/14/23 16:21 Total Bilirubin 0.7 mg/dL (0.2-1.3) 09/14/23 16:21 AST 32 U/L (14-36) 09/14/23 16:21 ALT 20 U/L (4-34) 09/14/23 16:21 Alkaline Phosphatase 68 U/L (38-126) 09/14/23 16:21 Total Protein 7.4 g/dL (6.3-8.2) 09/14/23 16:21 Albumin 4.3 g/dL (3.5-5.0) 09/14/23 16:21 Urine Opiates Screen Not Detected (NotDetected) 09/14/23 12:59 Ur Oxycodone Screen Not Detected (NotDetected) 09/14/23 12:59 Urine Methadone Screen Not Detected (NotDetected) 09/14/23 12:59 Ur Propoxyphene Screen Not Detected (NotDetected) 09/14/23 12:59 Ur Barbiturates Screen Not Detected (NotDetected) 09/14/23 12:59 U Tricyclic Antidepress Not Detected (NotDetected) 09/14/23 12:59 Ur Phencyclidine Scrn Not Detected (NotDetected) 09/14/23 12:59 Ur Amphetamines Screen Not Detected (NotDetected) 09/14/23 12:59 U Methamphetamines Scrn Not Detected (NotDetected) 09/14/23 12:59 U Benzodiazepines Scrn Not Detected (NotDetected) 09/14/23 12:59 Urine Cocaine Screen Not Detected (NotDetected) 09/14/23 12:59 U Marijuana (THC) Screen Detected (NotDetected) H 09/14/23 12:59 Coronavirus (PCR) Not Detected (Not Detectd) 09/14/23 16:21 Vital Signs Temp 97.4 F L 09/22/23 00:38 Pulse 85 09/22/23 00:38 Resp 13 09/22/23 00:38 BP 115/73 09/22/23 00:38 Pulse Ox 99 09/20/23 05:18 FiO2 Patient Condition at Discharge: Stable Plan - Discharge Summary New Discharge Prescriptions: New Benzocaine 20 % Gel [Orajel] 1 applic MM BID PRN 30 Days #1 each PRN Reason: tooth pain. Benzocaine/Menthol Lozeng [Cepacol lozenge] 1 each MUCOUS MEM Q6HR PRN 30 Days #120 lozenge PRN Reason: Sore Throat Nicotine 14Mg/24Hr Patch [Habitrol] 1 patch TRANSDERM DAILY 14 Days #14 patch Ibuprofen [Motrin] 600 mg PO Q6HR PRN tab PRN Reason: Moderate Pain (Scale 4 To 6) Nicotine Gum (Polacrilex) [Nicorette] 2 mg BUCCAL Q4HR PRN 30 Days #180 pieceofgum PRN Reason: Nicotine Cravings fluPHENAZine decanoate [Prolixin Decanoate] 50 mg IM Q14D #1 ml Mirtazapine [Remeron] 15 mg PO HS 30 Days #30 tab Discontinued fluPHENAZine decanoate [Prolixin Decanoate] 37.5 mg IM Q14D Discharge Medication List Benzocaine 20 % Gel [Orajel] 1 applic MM BID PRN 30 Days #1 each 09/22/23 [Rx] Benzocaine/Menthol Lozeng [Cepacol lozenge] 1 each MUCOUS MEM Q6HR PRN 30 Days #120 lozenge 09/22/23 [Rx] Ibuprofen [Motrin] 600 mg PO Q6HR PRN tab 09/22/23 [Rx] Mirtazapine [Remeron] 15 mg PO HS 30 Days #30 tab 09/22/23 [Rx] Nicotine 14Mg/24Hr Patch [Habitrol] 1 patch TRANSDERM DAILY 14 Days #14 patch 09/22/23 [Rx] Nicotine Gum (Polacrilex) [Nicorette] 2 mg BUCCAL Q4HR PRN 30 Days #180 pieceofgum 09/22/23 [Rx] fluPHENAZine decanoate [Prolixin Decanoate] 50 mg IM Q14D #1 ml 09/22/23 [Rx] Follow up Appointment(s)/Referral(s): [facility] [Outside] - 09/23/23 12:30 pm ([place]) None,Stated [Primary Care Provider] - 1-2 days Activity/Diet/Wound Care/Special Instructions: Avoid the use of street drugs and alcohol. Take all medications as prescribed. When you are in need of refills on your medications, please contact your medical provider and/or outpatient psychiatrist/provider to have this done. Please go to your scheduled outpatient appointment for aftercare treatment. If symptoms return or become worse, call the crisis line at and/or go to the nearest emergency room for evaluation. National Suicide Hotline 488. Discharge Disposition: OTHER INSTITUTION NOT DEFINED
== END 2023-09-22 12:45 | disposition home or self-care (01) | DRG 751 ==
LOC: EC 11:54 → 3MHU 09-15 15:12
PROVIDERS: ADMIT Psychiatry & Neurology Psychiatry; ATTEND Psychiatry & Neurology Psychiatry
DX: F29 Unspecified psychosis not due to a substance or known physiological condition (principal); R45.851 Suicidal ideations; Z91.83 Wandering in diseases classified elsewhere; F41.9 Anxiety disorder, unspecified; Z71.6 Tobacco abuse counseling; F17.290 Nicotine dependence, other tobacco product, uncomplicated; K08.89 Other specified disorders of teeth and supporting structures; G47.00 Insomnia, unspecified; Z59.00 Homelessness unspecified; Z28.310 Unvaccinated for COVID-19; Z71.89 Other specified counseling; F12.90 Cannabis use, unspecified, uncomplicated; F20.9 Schizophrenia, unspecified; F31.9 Bipolar disorder, unspecified; F41.0 Panic disorder [episodic paroxysmal anxiety]; F90.9 Attention-deficit hyperactivity disorder, unspecified type; Z79.899 Other long term (current) drug therapy; Z11.52 Encounter for screening for COVID-19
CPT/HCPCS: 36415; 80053; 80306; 82075; 85025; 87635; 99285

== ENCOUNTER 2023-09-25 13:43 | Emergency (ER) | payer OTHER ==
[2023-09-25 14:04] VITALS: PULSE 94
--- NOTE | 2023-09-25 15:01 | ED ---
Psych HPI - General Source: patient, RN notes reviewed Mode of arrival: ambulatory Limitations: no limitations - History of Present Illness MD Complaint: feels depressed, other (anxiety) <Nancy Vivar - Last Filed: 09/25/23 17:16> <Janey Toney - Last Filed: 09/26/23 01:03> - General Chief Complaint: Psychiatric Symptoms Stated Complaint: Panic Attacks Time Seen by Provider: 09/25/23 14:14 - History of Present Illness Initial Comments: This is a 22-year-old female who presents to the emergency department for psychiatric evaluation. Patient reports increasing depression, anxiety, and panic attacks. She has not been able to get her medications from [facility] because she is waiting for an appointment with psychiatry. As a result, she states that she's been struggling significantly. Patient is not quite sure when asked about suicidal ideations. Denies any homicidal ideations, auditory or visual hallucinations. States that her symptoms are overall causing her to feel exhausted and she feels like she can't continue managing her symptoms like this. (Nacny Vivar) - Related Data Previous Rx's Medication Instructions Recorded Benzocaine 20 % Gel [Orajel] 1 applic MM BID PRN 30 Days #1 each 09/22/23 Benzocaine/Menthol Lozeng [Cepacol 1 each MUCOUS MEM Q6HR PRN 30 Days 09/22/23 lozenge] #120 lozenge Ibuprofen [Motrin] 600 mg PO Q6HR PRN tab 09/22/23 Mirtazapine [Remeron] 15 mg PO HS 30 Days #30 tab 09/22/23 Nicotine 14Mg/24Hr Patch [Habitrol] 1 patch TRANSDERM DAILY 14 Days 09/22/23 #14 patch Nicotine Gum (Polacrilex) 2 mg BUCCAL Q4HR PRN 30 Days #180 09/22/23 [Nicorette] pieceofgum fluPHENAZine decanoate [Prolixin 50 mg IM Q14D #1 ml 09/22/23 Decanoate] Allergies Allergy/AdvReac Type Severity Reaction Status Date / Time No Known Allergies Allergy Verified 09/25/23 13:49 Review of Systems ROS Other: All systems not noted in ROS Statement are negative. <Nancy Vivar - Last Filed: 09/25/23 17:16> ROS Other: All systems not noted in ROS Statement are negative. <Janey Toney - Last Filed: 09/26/23 01:03> ROS Statement: Those systems with pertinent positive or pertinent negative responses have been documented in the HPI. Past Medical History Past Medical History: Asthma Additional Past Medical History / Comment(s): ADHD History of Any Multi-Drug Resistant Organisms: None Reported Past Surgical History: No Surgical Hx Reported Past Anesthesia/Blood Transfusion Reactions: No Reported Reaction Past Psychological History: ADD/ADHD, Anxiety, Bipolar, Depression, Panic Disorder, Schizophrenia Smoking Status: Current every day smoker, Vaper Past Alcohol Use History: Occasional Past Drug Use History: Marijuana <Nancy Vivar - Last Filed: 09/25/23 17:16> General Exam Limitations: no limitations General appearance: alert, in no apparent distress Head exam: Present: atraumatic, normocephalic, normal inspection Respiratory exam: Present: normal lung sounds bilaterally. Absent: respiratory distress, wheezes, rales, rhonchi, stridor Cardiovascular Exam: Present: regular rate, normal rhythm, normal heart sounds. Absent: systolic murmur, diastolic murmur, rubs, gallop, clicks Neurological exam: Present: alert, oriented X3, CN II-XII intact Psychiatric exam: Present: depressed, flat affect. Absent: homicidal ideation, suicidal ideation Skin exam: Present: warm, dry, intact, normal color. Absent: rash <Nancy Vivar - Last Filed: 09/25/23 17:16> Course Vital Signs 09/25/23 09/25/23 13:45 20:00 Temperature 97.7 F 98.2 F Pulse Rate 94 94 Respiratory 16 18 Rate Blood Pressure 118/74 112/68 O2 Sat by Pulse 96 98 Oximetry Medical Decision Making <Nancy Vivar - Last Filed: 09/25/23 17:16> <Janey Toney - Last Filed: 09/26/23 01:03> - Medical Decision Making This is a 22-year-old female who presents to the emergency department for psy chiatric evaluation. Was pt. sent in by a medical professional or institution? @ -No Did you speak to anyone other than the patient for history? @ -No Did you review nursing and triage notes? @ -Yes, and I agree, it is accurate with regards to the patient's symptoms. Were old charts reviewed? @ -No Differential Diagnosis? @ -Differential Mental Health Depression, anxiety, bipolar, psychosis, schizophrenia, borderline personality, situational depression, adjustment disorder, behavioral disorder, brain tumor, malingering, substance abuse, encephalopathy, medication reaction, dementia, hypothyroidism, degenerative neurologic disorder, lupus.... This is not meant to be all-inclusive list EKG interpreted by me (3pts min.)? @ -Not obtained X-rays interpreted by me (1pt min.)? @ -Not obtained CT interpreted by me (1pt min.)? @ -Not obtained U/S interpreted by me (1pt. min.)? @ -Not obtained What testing was considered but not performed? (CT, X-rays, U/S, labs)? Why? @ -None What meds were considered but not given? Why? @ -None Did you discuss the management of the patient with other professionals? @ -No Did you reconcile home meds? @ -No Was smoking cessation discussed for >3mins.? @ -No Was critical care preformed (if so, how long)? @ -No Were there social determinants of health that impacted care today? How? (Homelessness, low income, unemployed, alcoholism, drug addiction, transportatio n, low edu. Level, literacy, decrease access to med. care, longterm, rehab)? @ -No Was there de-escalation of care discussed even if they declined? (Discuss DNR or withdrawal of care, Hospice)? @ -No What co-morbidities impacted this encounter? (DM, HTN, Smoking, COPD, CAD, Cancer, CVA, Hep., AIDS, mental health diagnosis, sleep apnea, morbid obesity)? @ -Depression, anxiety Was patient admitted / discharged? @ -Patient's BAT was 0.0 and she was cleared for EPS evaluation. Case signed out to Janey Toney PA-C, at shift completion pending EPS evaluation. UDS and urine hcg pending as well. Undiagnosed new problem with uncertain prognosis? @ -None Drug Therapy requiring intensive monitoring for toxicity (Heparin, Nitro, Insulin, Cardizem)? @ -None Were any procedures done? @ -None (Nancy Vivar) This patient was signed out to me. Emergency psychiatric services evaluated the patient and she is cleared to follow-up with [facility] on outpatient basis. (Janey Toney) Disposition <Nancy Vivar - Last Filed: 09/25/23 17:16> Is patient prescribed a controlled substance at d/c from ED?: No <Janey Toney - Last Filed: 09/26/23 01:03> Clinical Impression: Depression, Anxiety Disposition: HOME SELF-CARE Condition: Stable Additional Instructions: Please adhere to your care plan. Return to the emergency department for new or worsening symptoms. Referrals: None,Stated [Primary Care Provider] - 1-2 days
[2023-09-25] MEDS ORDERED: MIRTAZAPINE 15 MG TAB PO STA (19:14)
[2023-09-25] MEDS ORDERED: ACETAMINOPHEN TAB 500 MG TAB PO STA (19:39)
[2023-09-25 20:15] VITALS: BP 112/68; RESP 18; TEMP 98.2
== END 2023-09-25 20:01 | disposition home or self-care (01) ==
LOC: EC 13:43
DX: F32.A Depression, unspecified (principal); F41.9 Anxiety disorder, unspecified; J45.909 Unspecified asthma, uncomplicated; F17.290 Nicotine dependence, other tobacco product, uncomplicated; F12.90 Cannabis use, unspecified, uncomplicated
CPT/HCPCS: 82075; 99284

== ENCOUNTER 2024-02-10 21:24 | Emergency (ER) | payer OTHER ==
[2024-02-10 22:11] VITALS: BP 110/72
--- NOTE | 2024-02-10 22:31 | ED ---
Psych HPI - General Source: patient, RN notes reviewed Mode of arrival: ambulatory <Lucretia Cheney - Last Filed: 02/10/24 22:35> <Deepak Red - Last Filed: 02/11/24 11:03> - General Chief Complaint: Psychiatric Symptoms Stated Complaint: mental health Time Seen by Provider: 02/10/24 22:29 - History of Present Illness Initial Comments: 23-year-old female presenting to the ER with chief complaint of suicidal ideation. Patient reports for the past couple of days she has been having an increase in depression, anxiety and suicidal thoughts. She reports that if she did not come to the ER today for evaluation she would have found drugs on the street to overdose or a knife to cut herself. She denies any drugs or alcohol tonight. Patient reports she ran out of her mental health medication about 2 months ago. This is when her suicidal thoughts increased. She also reports she is homeless. She denies any headache, fevers, chills, chest pain, shortness of breath, abdominal pain, constipation/diarrhea, urinary complaints or peripheral edema. (Lucretia Cheney) - Related Data Home Medications Medication Instructions Recorded Confirmed No Known Home Medications 02/11/24 02/11/24 Allergies Allergy/AdvReac Type Severity Reaction Status Date / Time No Known Allergies Allergy Verified 02/11/24 07:55 Review of Systems ROS Other: All systems not noted in ROS Statement are negative. <Lucretia Cheney - Last Filed: 02/10/24 22:35> ROS Other: All systems not noted in ROS Statement are negative. <Deepak Red - Last Filed: 02/11/24 11:03> ROS Statement: Those systems with pertinent positive or pertinent negative responses have been documented in the HPI. Past Medical History Past Medical History: Asthma Additional Past Medical History / Comment(s): ADHD History of Any Multi-Drug Resistant Organisms: None Reported Past Surgical History: No Surgical Hx Reported Past Anesthesia/Blood Transfusion Reactions: No Reported Reaction Past Psychological History: ADD/ADHD, Anxiety, Bipolar, Depression, Panic Disorder, Schizophrenia Smoking Status: Current every day smoker, Vaper Past Alcohol Use History: Occasional Past Drug Use History: Marijuana <Lucretia Cheney - Last Filed: 02/10/24 22:35> General Exam Limitations: no limitations General appearance: alert, in no apparent distress Head exam: Present: atraumatic, normocephalic, normal inspection Eye exam: Present: normal appearance, PERRL, EOMI. Absent: scleral icterus, conjunctival injection, periorbital swelling Respiratory exam: Present: normal lung sounds bilaterally. Absent: respiratory distress, wheezes, rales, rhonchi, stridor Cardiovascular Exam: Present: regular rate, normal rhythm, normal heart sounds. Absent: systolic murmur, diastolic murmur, rubs, gallop, clicks GI/Abdominal exam: Present: soft, normal bowel sounds. Absent: distended, tenderness, guarding, rebound, rigid Extremities exam: Present: normal inspection, full ROM, normal capillary refill. Absent: tenderness, pedal edema, joint swelling, calf tenderness Neurological exam: Present: alert, oriented X3, CN II-XII intact Psychiatric exam: Present: depressed, suicidal ideation Skin exam: Present: warm, dry, intact, normal color. Absent: rash <Lucretia Cheney - Last Filed: 02/10/24 22:35> Course Vital Signs 02/10/24 21:37 Temperature 98.0 F Pulse Rate 86 Respiratory 18 Rate Blood Pressure 110/72 O2 Sat by Pulse 99 Oximetry Medical Decision Making <Lucretia Cheney - Last Filed: 02/10/24 22:35> <Deepak Red - Last Filed: 02/11/24 11:03> - Medical Decision Making Was pt. sent in by a medical professional or institution (GABRIELA Myers, DATA COLLECTION INTERVIEWER, urgent care, hospital, or prison...) When possible be specific @ -[No] Did you speak to anyone other than the patient for history (EMS, parent, family, police, friend...)? What history was obtained from this source @ -[No] Did you review nursing and triage notes (agree or disagree)? Why? @ -[I reviewed and agree with nursing and triage notes] Were old charts reviewed (outside hosp., previous admission, EMS record, old EKG, old radiological studies, urgent care reports/EKG's, prison records)? Report findings @ -[No old charts were reviewed] Differential Diagnosis (chest pain, altered mental status, abdominal pain women, abdominal pain men, vaginal bleeding, weakness, fever, dyspnea, syncope, headache, dizziness, GI bleed, back pain, seizure, CVA, palpatations, mental health, musculoskeletal)? @ -Differential Mental Health: Depression, anxiety, bipolar, psychosis, schizophrenia, borderline personality, situational depression, adjustment disorder, behavioral disorder, brain tumor, malingering, substance abuse, encephalopathy, medication reaction, dementia, hypothyroidism, degenerative neurologic disorder, lupus.... This is not meant to be all-inclusive list EKG interpreted by me (3pts min.). @ -[None] X-rays interpreted by me (1pt min.). @ -[None done] CT interpreted by me (1pt min.). @ -[None done] U/S interpreted by me (1pt. min.). @ -[None done] What testing was considered but not performed or refused? (CT, X-rays, U/S, labs)? Why? @ -[None] What meds were considered but not given or refused? Why? @ -[None] Did you discuss the management of the patient with other professionals (professionals i.e. , PA, DATA COLLECTION INTERVIEWER, lab, RT, psych nurse, social work specialist, visual manager, teacher, weapons officer naval activity, case mgr)? Give summary @ -[No] Was smoking cessation discussed for >3mins.? @ -[No] Was critical care preformed (if so, how long)? @ -[No] Were there social determinants of health that impacted care today? How? (Homelessness, low income, unemployed, alcoholism, drug addiction, transportation, low edu. Level, literacy, decrease access to med. care, shelter, rehab)? @ -Patient is homeless Was there de-escalation of care discussed even if they declined (Discuss DNR or withdrawal of care, Hospice)? DNR status @ -[No] What co-morbidities impacted this encounter? (DM, HTN, Smoking, COPD, CAD, Cancer, CVA, ARF, Chemo, Hep., AIDS, mental health diagnosis, sleep apnea, morbid obesity)? @ -[None] Was patient admitted / discharged? Hospital course, mention meds given and route, prescriptions, significant lab abnormalities, going to OR and other pertinent info. @ -23-year-old female presented to the ER with chief complaint of suicidal ideation with plan. History and physical exam completed. Vital stable. Patient no signs of acute distress and nontoxic-appearing. Patient medically cleared for EPS evaluation. Undiagnosed new problem with uncertain prognosis? @ -[No] Drug Therapy requiring intensive monitoring for toxicity (Heparin, Nitro, Insulin, Cardizem)? @ -[No] Were any procedures done? @ -[No] Diagnosis/symptom? @ -[default] Acute, or Chronic, or Acute on Chronic? @ -[default] Uncomplicated (without systemic symptoms) or Complicated (systemic symptoms)? @ -[default] Side effects of treatment? @ -[No] Exacerbation, Progression, or Severe Exacerbation? @ -[No] Poses a threat to life or bodily function? How? (Chest pain, [place], [place], pneumonia, PE, COPD, DKA, ARF, appy, cholecystitis, CVA, Diverticulitis, Homicidal, Suicidal, threat to staff... and all critical care pts) @ -[No] (Lucretia Cheney) Case was discussed with mental health worker with plans for psychiatric transfer or admission. Patient reevaluated by myself. Patient admits to depression and suicidal thoughts. Patient has been off her medications. Not eating or sleeping well. Diagnosis: Depression, acute Complicated with suicidal ideation Plan for psychiatric admission or transfer. Positive clinical certificate completed. (Deepak Red) - Lab Data Lab Results 02/10/24 02/10/24 Range/Units 22:02 23:40 Urine Color Yellow Urine Appearance Cloudy H (Clear) Urine pH 6.0 (5.0-8.0) Ur Specific [place] 1.033 (1.001-1.035) Urine Protein 1+ H (Negative) Urine Glucose (UA) Negative (Negative) Urine Ketones 1+ H (Negative) Urine Blood Negative (Negative) Urine Nitrite Negative (Negative) Urine Bilirubin Negative (Negative) Urine Urobilinogen 3.0 (<2.0) mg/dL Ur Leukocyte Esterase Negative (Negative) Urine RBC 2 (0-5) /hpf Urine WBC 2 (0-5) /hpf Ur Squamous Epith Cells 22 H (0-4) /hpf Urine Mucus Many H (None) /hpf Urine HCG, Qual Not Detected (Not Detectd) Urine Opiates Screen Not Detected (NotDetected) Ur Oxycodone Screen Not Detected (NotDetected) Urine Methadone Screen Not Detected (NotDetected) Ur Barbiturates Screen Not Detected (NotDetected) U Tricyclic Antidepress Not Detected (NotDetected) Ur Phencyclidine Scrn Not Detected (NotDetected) Ur Amphetamines Screen Not Detected (NotDetected) U Methamphetamines Scrn Not Detected (NotDetected) U Benzodiazepines Scrn Not Detected (NotDetected) Urine Cocaine Screen Not Detected (NotDetected) U Marijuana (THC) Screen Detected H (NotDetected) Disposition <Lucretia Cheney - Last Filed: 02/10/24 22:35> Is patient prescribed a controlled substance at d/c from ED?: No Time of Disposition: 11:03 <Deepak Red - Last Filed: 02/11/24 11:03> Clinical Impression: Depression Disposition: TRANSFER TO PSYCH HOSP/UNIT Referrals: None,Stated [Primary Care Provider] - 1-2 days
[2024-02-11 00:01] LABS: Appearance,Urine Cloudy (Clear); Bilirubin,Urine Negative (Negative); Blood,Urine Negative (Negative); Color,Urine Yellow; Glucose,Urine (UA) Negative (Negative); Ketones,Urine 1+ (Negative); Leukocyte Esterase,Urine Negative (Negative); Mucus,Urine Many /hpf; Nitrite,Urine Negative (Negative); Protein,Urine 1+ (Negative); RBC,Urine 2 /hpf (0-5); Specific Gravity,Urine 1.033 (1.001-1.035); Squamous Epithelial Cell,Urine 22 /hpf (0-4); WBC,Urine 2 /hpf (0-5)
[2024-02-11 00:16] LABS: Amphetamine Screen,Urine Not Detected (NotDetected); Barbiturate Screen,Urine Not Detected (NotDetected); Benzodiazepines Screen,Urine Not Detected (NotDetected); Cocaine Screen,Urine Not Detected (NotDetected); Methadone Screen, Urine Not Detected (NotDetected); Opiate Screen,Urine Not Detected (NotDetected); Oxycodone Screen, Urine Not Detected (NotDetected); Phencyclidine Screen,Urine Not Detected (NotDetected); Tricyclic Antidepressant,Urine Not Detected (NotDetected); Urn Cannabinoid Scrn Detected (NotDetected)
[2024-02-11 11:43] LABS: HCT 39.1 % (34.0-46.0); HGB 12.9 gm/dL (11.4-16.0); MCHC 32.9 g/dL (31.0-37.0); MCV 85.1 fL (80.0-100.0); Mean Platelet Volume 10.5; Platelet Count 207 k/uL (150-450); RBC 4.59 m/uL (3.80-5.40); RDW 13.4 % (11.5-15.5); WBC 6.1 k/uL (3.8-10.6)
[2024-02-11 12:02] LABS: ALT 17 U/L (4-34); AST 27 U/L (14-36); African American GFR (CKD) >90 (>60 ml/min/1.73 sqM); Albumin 3.5 g/dL (3.5-5.0); Alkaline Phosphatase 71 U/L (38-126); Anion Gap 3 mmol/L; Blood Urea Nitrogen 14 mg/dL (7-17); Calcium 8.6 mg/dL (8.4-10.2); Carbon Dioxide 29 mmol/L (22-30); Chloride 107 mmol/L (98-107); Glucose 86 mg/dL (74-99); Non-African American GFR(CKD) >90 (>60 ml/min/1.73 sqM); Potassium 3.9 mmol/L (3.5-5.1); Sodium 139 mmol/L (137-145); Total Bilirubin 0.7 mg/dL (0.2-1.3); Total Protein 6.3 g/dL (6.3-8.2)
[2024-02-11 15:03] VITALS: PULSE 68; RESP 16; TEMP 98.4
== END 2024-02-11 14:45 ==
LOC: EC 21:24
DX: F32.A Depression, unspecified (principal); F17.290 Nicotine dependence, other tobacco product, uncomplicated; Z59.00 Homelessness unspecified; Z11.52 Encounter for screening for COVID-19
CPT/HCPCS: 36415; 80053; 80306; 81001; 81025; 82075; 85027; 87635; 99285

== ENCOUNTER 2024-02-20 10:15 | Inpatient (IN) | payer MEDICAID, OTHER ==
--- NOTE | 2024-02-20 10:43 | ED ---
Psych HPI - General Source: patient Mode of arrival: ambulatory - History of Present Illness MD Complaint: suicidal ideation, feels depressed Onset/Timin -: year(s) Associated Psychiatric Symptoms: depression, suicidal ideation, racing thoughts History of same: Yes Quality: getting worse Improves With: none Worsens With: none <Mahin Sanz - Last Filed: 02/20/24 10:40> <Hunter Flowers - Last Filed: 02/20/24 18:21> - General Chief Complaint: Psychiatric Symptoms Stated Complaint: Mental Health Time Seen by Provider: 02/20/24 10:20 - History of Present Illness Initial Comments: This patient is a 23-year-old woman who presents with complaint that she is feeling anxious and depressed related to the of a friend. She states that this occurred 1 year ago today. She feels that she is alone with no one to be there for her. The patient states she has had thoughts of harming herself. She does have a counselor appointment coming up on the of this month but she is not currently having therapy. On review of systems, the patient is having some right flank pain that has been present intermittently going back 1 year. (Mahin Sanz) - Related Data Home Medications Medication Instructions Recorded Confirmed Abilifjanna(Unknown) 1 tab PO DIRECTED 02/20/24 02/20/24 Allergies Allergy/AdvReac Type Severity Reaction Status Date / Time No Known Allergies Allergy Verified 02/20/24 17:01 Review of Systems ROS Other: All systems not noted in ROS Statement are negative. Constitutional: Denies: fever, chills Respiratory: Denies: cough, dyspnea Cardiovascular: Denies: chest pain, palpitations, edema Gastrointestinal: Reports: abdominal pain. Denies: nausea, vomiting, diarrhea, constipation, melena, hematochezia Genitourinary: Denies: dysuria, frequency, hematuria, abnormal menses Musculoskeletal: Denies: back pain Skin: Denies: rash Neurological: Denies: headache, weakness <Mahin Sanz - Last Filed: 02/20/24 10:40> ROS Other: All systems not noted in ROS Statement are negative. <Hunter Flowers - Last Filed: 02/20/24 18:21> ROS Statement: Those systems with pertinent positive or pertinent negative responses have been documented in the HPI. Past Medical History Past Medical History: Asthma Additional Past Medical History / Comment(s): ADHD History of Any Multi-Drug Resistant Organisms: None Reported Past Surgical History: No Surgical Hx Reported Past Anesthesia/Blood Transfusion Reactions: No Reported Reaction Past Psychological History: ADD/ADHD, Anxiety, Bipolar, Depression, Panic Disorder, Schizophrenia Smoking Status: Current every day smoker, Vaper Past Alcohol Use History: Occasional Past Drug Use History: Marijuana <Mahin Sanz - Last Filed: 02/20/24 10:40> General Exam Limitations: no limitations General appearance: alert, in no apparent distress Head exam: Present: atraumatic, normocephalic Eye exam: Present: normal appearance. Absent: scleral icterus, conjunctival injection ENT exam: Present: normal oropharynx Neck exam: Present: normal inspection, full ROM Respiratory exam: Present: normal lung sounds bilaterally. Absent: respiratory distress, wheezes, rales, rhonchi, stridor, accessory muscle use Cardiovascular Exam: Present: regular rate, normal rhythm, normal heart sounds. Absent: systolic murmur, diastolic murmur, rubs, gallop GI/Abdominal exam: Present: soft. Absent: distended, tenderness, guarding, rebound, rigid, mass Extremities exam: Present: normal inspection, normal capillary refill. Absent: pedal edema, calf tenderness Back exam: Present: normal inspection. Absent: CVA tenderness (R), CVA tenderness (L) Neurological exam: Present: alert Psychiatric exam: Present: depressed, anxious, suicidal ideation. Absent: agit ated, flat affect, manic, homicidal ideation Skin exam: Present: warm, dry, intact, normal color. Absent: rash <Mahin Sanz - Last Filed: 02/20/24 10:40> Course Vital Signs 02/20/24 10:17 Temperature 98.2 F Pulse Rate 91 Respiratory 20 Rate Blood Pressure 146/84 O2 Sat by Pulse 99 Oximetry Medical Decision Making - Lab Data Result diagrams: 02/20/24 11:02 02/20/24 11:02 <Hunter Flowers - Last Filed: 02/20/24 18:21> - Medical Decision Making The patient was endorsed to me by Dr. Sanz at our shift change pending EPS evaluation patient did present with suicidal thoughts and depression. She was evaluated by the EPS service found to be a risk to herself she will be admitted she is a voluntary admission. Was pt. sent in by a medical professional or institution (GABRIELA Myers, FIELD HOCKEY COACH, urgent care, hospital, or custodial...) When possible be specific @ -No Did you speak to anyone other than the patient for history (EMS, parent, family, police, friend...)? What history was obtained from this source @ -Dr. Sanz at our shift change Did you review nursing and triage notes (agree or disagree)? Why? @ -I reviewed and agree with nursing and triage notes Were old charts reviewed (outside hosp., previous admission, EMS record, old EKG, old radiological studies, urgent care reports/EKG's, custodial records)? Report findings @ -No old charts were reviewed Differential Diagnosis (chest pain, altered mental status, abdominal pain women, abdominal pain men, vaginal bleeding, weakness, fever, dyspnea, syncope, headache, dizziness, GI bleed, back pain, seizure, CVA, palpatations, mental health, musculoskeletal)? @ -Pression, suicidal ideation EKG interpreted by me (3pts min.). @ -Indicated] X-rays interpreted by me (1pt min.). @ -None done CT interpreted by me (1pt min.). @ -None done U/S interpreted by me (1pt. min.). @ -None done What testing was considered but not performed or refused? (CT, X-rays, U/S, labs)? Why? @ -None What meds were considered but not given or refused? Why? @ -None Did you discuss the management of the patient with other professionals (professionals i.e. GABRIELA Myers, FIELD HOCKEY COACH, lab, RT, psych nurse, social media strategist, grape cutter, teacher, forest officer, watch case polisher)? Give summary @ -EPS nursing staff Was smoking cessation discussed for >3mins.? @ -No Was critical care preformed (if so, how long)? @ -No Were there social determinants of health that impacted care today? How? (Homelessness, low income, unemployed, alcoholism, drug addiction, transportation, low edu. Level, literacy, decrease access to med. care, long-term, rehab)? @ -No Was there de-escalation of care discussed even if they declined (Discuss DNR or withdrawal of care, Hospice)? DNR status @ -No What co-morbidities impacted this encounter? (DM, HTN, Smoking, COPD, CAD, Cancer, CVA, ARF, Chemo, Hep., AIDS, mental health diagnosis, sleep apnea, morbid obesity)? @ -Depression Was patient admitted / discharged? Hospital course, mention meds given and route, prescriptions, significant lab abnormalities, going to OR and other perti nent info. @ -Hospital course patient was admitted to the psychiatric service. Undiagnosed new problem with uncertain prognosis? @ -No Drug Therapy requiring intensive monitoring for toxicity (Heparin, Nitro, Insulin, Cardizem)? @ -No Were any procedures done? @ -No Diagnosis/symptom? @ -Major depression, suicidal ideation Acute, or Chronic, or Acute on Chronic? @ -Acute Uncomplicated (without systemic symptoms) or Complicated (systemic symptoms)? @ -Default Side effects of treatment? @ -No Exacerbation, Progression, or Severe Exacerbation? @ -No Poses a threat to life or bodily function? How? (Chest pain, [place], [place], pneumonia, PE, COPD, DKA, ARF, appy, cholecystitis, CVA, Diverticulitis, Homicidal, Suicidal, threat to staff... and all critical care pts) @ -Potential (Hunter Flowers) - Lab Data Lab Results 02/20/24 02/20/24 02/20/24 Range/Units 10:39 10:39 11:02 WBC 9.4 (3.8-10.6) k/uL RBC 5.17 (3.80-5.40) m/uL Hgb 14.6 (11.4-16.0) gm/dL Hct 44.5 (34.0-46.0) % MCV 86.1 (80.0-100.0) fL MCH 28.2 (25.0-35.0) pg MCHC 32.8 (31.0-37.0) g/dL RDW 13.6 (11.5-15.5) % Plt Count 188 (150-450) k/uL MPV 10.0 Neutrophils % 75 % Lymphocytes % 17 % Monocytes % 6 % Eosinophils % 1 % Basophils % 0 % Neutrophils # 7.0 (1.3-7.7) k/uL Lymphocytes # 1.6 (1.0-4.8) k/uL Monocytes # 0.5 (0-1.0) k/uL Eosinophils # 0.1 (0-0.7) k/uL Basophils # 0.0 (0-0.2) k/uL Sodium (137-145) mmol/L Potassium (3.5-5.1) mmol/L Chloride (98-107) mmol/L Carbon Dioxide (22-30) mmol/L Anion Gap mmol/L BUN (7-17) mg/dL Creatinine (0.52-1.04) mg/dL Est GFR (CKD-EPI)AfAm (>60 ml/min/1.73 sqM) Est GFR (CKD-EPI)NonAf (>60 ml/min/1.73 sqM) Glucose (74-99) mg/dL Calcium (8.4-10.2) mg/dL Total Bilirubin (0.2-1.3) mg/dL AST (14-36) U/L ALT (4-34) U/L Alkaline Phosphatase (38-126) U/L Total Protein (6.3-8.2) g/dL Albumin (3.5-5.0) g/dL Urine Color Yellow Urine Appearance Cloudy H (Clear) Urine pH 7.5 (5.0-8.0) Ur Specific [place] 1.028 (1.001-1.035) Urine Protein Trace H (Negative) Urine Glucose (UA) Negative (Negative) Urine Ketones Negative (Negative) Urine Blood Negative (Negative) Urine Nitrite Negative (Negative) Urine Bilirubin Negative (Negative) Urine Urobilinogen 2.0 (<2.0) mg/dL Ur Leukocyte Esterase Negative (Negative) Urine RBC 2 (0-5) /hpf Urine WBC 2 (0-5) /hpf Ur Squamous Epith Cells 33 H (0-4) /hpf Amorphous Sediment Rare H (None) /hpf Urine Bacteria Rare H (None) /hpf Urine Mucus Rare H (None) /hpf Urine HCG, Qual Not Detected (Not Detectd) Influenza Type A (PCR) (Not Detectd) Influenza Type B (PCR) (Not Detectd) RSV (PCR) (Not Detectd) SARS-CoV-2 (PCR) (Not Detectd) 02/20/24 02/20/24 Range/Units 11:02 16:51 WBC (3.8-10.6) k/uL RBC (3.80-5.40) m/uL Hgb (11.4-16.0) gm/dL Hct (34.0-46.0) % MCV (80.0-100.0) fL MCH (25.0-35.0) pg MCHC (31.0-37.0) g/dL RDW (11.5-15.5) % Plt Count (150-450) k/uL MPV Neutrophils % % Lymphocytes % % Monocytes % % Eosinophils % % Basophils % % Neutrophils # (1.3-7.7) k/uL Lymphocytes # (1.0-4.8) k/uL Monocytes # (0-1.0) k/uL Eosinophils # (0-0.7) k/uL Basophils # (0-0.2) k/uL Sodium 142 (137-145) mmol/L Potassium 3.9 (3.5-5.1) mmol/L Chloride 107 (98-107) mmol/L Carbon Dioxide 23 (22-30) mmol/L Anion Gap 12 mmol/L BUN 15 (7-17) mg/dL Creatinine 0.51 L (0.52-1.04) mg/dL Est GFR (CKD-EPI)AfAm >90 (>60 ml/min/1.73 sqM) Est GFR (CKD-EPI)NonAf >90 (>60 ml/min/1.73 sqM) Glucose 91 (74-99) mg/dL Calcium 9.3 (8.4-10.2) mg/dL Total Bilirubin 0.5 (0.2-1.3) mg/dL AST 30 (14-36) U/L ALT 24 (4-34) U/L Alkaline Phosphatase 85 (38-126) U/L Total Protein 7.7 (6.3-8.2) g/dL Albumin 4.5 (3.5-5.0) g/dL Urine Color Urine Appearance (Clear) Urine pH (5.0-8.0) Ur Specific [place] (1.001-1.035) Urine Protein (Negative) Urine Glucose (UA) (Negative) Urine Ketones (Negative) Urine Blood (Negative) Urine Nitrite (Negative) Urine Bilirubin (Negative) Urine Urobilinogen (<2.0) mg/dL Ur Leukocyte Esterase (Negative) Urine RBC (0-5) /hpf Urine WBC (0-5) /hpf Ur Squamous Epith Cells (0-4) /hpf Amorphous Sediment (None) /hpf Urine Bacteria (None) /hpf Urine Mucus (None) /hpf Urine HCG, Qual (Not Detectd) Influenza Type A (PCR) Not Detected (Not Detectd) Influenza Type B (PCR) Not Detected (Not Detectd) RSV (PCR) Not Detected (Not Detectd) SARS-CoV-2 (PCR) Not Detected (Not Detectd) Disposition <Mahin Sanz - Last Filed: 02/20/24 10:40> Time of Disposition: 18:21 Decision Date: 02/20/24 Decision Time: 18:21 <Hunter Flowers - Last Filed: 02/20/24 18:21> Clinical Impression: Depression, Suicidal ideation Disposition: TRANSFER TO PSYCH HOSP/UNIT Condition: Stable
[2024-02-20 11:26] LABS: Basophils % (A) 0 %; Eosinophils # (A) 0.1 k/uL (0-0.7); Eosinophils % (A) 1 %; HCT 44.5 % (34.0-46.0); HGB 14.6 gm/dL (11.4-16.0); Lymphocytes # (A) 1.6 k/uL (1.0-4.8); Lymphocytes % (A) 17 %; MCH 28.2 pg (25.0-35.0); MCHC 32.8 g/dL (31.0-37.0); MCV 86.1 fL (80.0-100.0); Monocytes # (A) 0.5 k/uL (0-1.0); Monocytes % (A) 6 %; Neutrophils % (A) 75 %; Platelet Count 188 k/uL (150-450); RBC 5.17 m/uL (3.80-5.40); RDW 13.6 % (11.5-15.5); WBC 9.4 k/uL (3.8-10.6)
[2024-02-20 11:33] LABS: ALT 24 U/L (4-34); AST 30 U/L (14-36); African American GFR (CKD) >90 (>60 ml/min/1.73 sqM); Albumin 4.5 g/dL (3.5-5.0); Alkaline Phosphatase 85 U/L (38-126); Anion Gap 12 mmol/L; Blood Urea Nitrogen 15 mg/dL (7-17); Calcium 9.3 mg/dL (8.4-10.2); Carbon Dioxide 23 mmol/L (22-30); Chloride 107 mmol/L (98-107); Glucose 91 mg/dL (74-99); Non-African American GFR(CKD) >90 (>60 ml/min/1.73 sqM); Potassium 3.9 mmol/L (3.5-5.1); Sodium 142 mmol/L (137-145); Total Bilirubin 0.5 mg/dL (0.2-1.3); Total Protein 7.7 g/dL (6.3-8.2)
[2024-02-20 11:51] LABS: Amorphous Sediment,Urine Rare /hpf; Appearance,Urine Cloudy (Clear); Bacteria,Urine Rare /hpf; Bilirubin,Urine Negative (Negative); Blood,Urine Negative (Negative); Color,Urine Yellow; Glucose,Urine (UA) Negative (Negative); Ketones,Urine Negative (Negative); Leukocyte Esterase,Urine Negative (Negative); Mucus,Urine Rare /hpf; Nitrite,Urine Negative (Negative); PH, Urine 7.5 (5.0-8.0); Protein,Urine Trace (Negative); RBC,Urine 2 /hpf (0-5); Specific Gravity,Urine 1.028 (1.001-1.035); Squamous Epithelial Cell,Urine 33 /hpf (0-4); WBC,Urine 2 /hpf (0-5)
[2024-02-20] MEDS ORDERED: HALOPERIDOL LACTATE 5 MG/ML 1 ML VIAL IM PRN (18:13)
[2024-02-20] MEDS ORDERED: LORazepam 2 MG/ML INJ IM PRN (18:13)
[2024-02-20] MEDS ORDERED: MAG HYDROX/AL HYDROX/SIMETH 355 ML BOTTLE PO PRN (18:13)
[2024-02-20] MEDS ORDERED: haloperidoL 5 MG TAB PO PRN (18:13)
[2024-02-21 07:54] LABS: Urine Alcohol Negative (Negative); Urine Barbiturate Negative (Negative); Urine Cocaine Negative (Negative); Urine Methadone Negative (Negative); Urine Opiates Negative (Negative); Urine Phencyclidine Negative (Negative)
[2024-02-21] MEDS: NICOTINE 14MG/24HR PATCH TRANSDERM SCH (08:37)
[2024-02-21] MEDS: ARIPiprazole 10 MG TAB PO SCH (08:37)
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
[2024-02-21 17:41] LABS: Appearance,Urine Clear (Clear); Bilirubin,Urine Negative (Negative); Blood,Urine Negative (Negative); Color,Urine Colorless; Glucose,Urine (UA) Negative (Negative); Ketones,Urine Negative (Negative); Leukocyte Esterase,Urine Negative (Negative); Nitrite,Urine Negative (Negative); PH, Urine 6.5 (5.0-8.0); Protein,Urine Negative (Negative); Specific Gravity,Urine 1.012 (1.001-1.035); Urobilinogen,Urine <2.0 mg/dL (<2.0)
[2024-02-21 18:23] LABS: ALT 20 U/L (4-34); AST 28 U/L (14-36); African American GFR (CKD) >90 (>60 ml/min/1.73 sqM); Albumin 4.1 g/dL (3.5-5.0); Alkaline Phosphatase 86 U/L (38-126); Anion Gap 5 mmol/L; Blood Urea Nitrogen 18 mg/dL (7-17); Carbon Dioxide 25 mmol/L (22-30); Chloride 107 mmol/L (98-107); Glucose 78 mg/dL (74-99); Non-African American GFR(CKD) >90 (>60 ml/min/1.73 sqM); Potassium 4.1 mmol/L (3.5-5.1); Sodium 137 mmol/L (137-145); Total Bilirubin 0.5 mg/dL (0.2-1.3); Total Protein 7.1 g/dL (6.3-8.2)
[2024-02-21] MEDS: PRAZOSIN 1 MG CAP PO SCH (20:09)
[2024-02-21 23:02] LABS: Chol/HDL Ratio 2.72 Ratio
[2024-02-21 23:22] LABS: LDL Cholesterol,Calculated 78.2 mg/dL (0.0-131.0); VLDL Calculation 19.88 mg/dL (5.00-40.00)
[2024-02-22] MEDS ORDERED: traZODone HCL 50 MG TAB PO PRN (00:11)
[2024-02-22] MEDS: ARIPiprazole 10 MG TAB PO SCH (08:42)
[2024-02-22] MEDS: buPROPion XL 150 MG TAB.ER.24H PO SCH (08:42)
--- NOTE | 2024-02-22 11:33 | P.PN ---
Progress Note - Text Progress Note Date: 02/22/24 Interval History: Patient was seen in the [facility] and was directable and agreeable to speak with selling underwriter in the office. Patient states that shes ok today. She states that her boyfriend lost his job, so they got kicked out of the motel they were staying at. She claims that her depression was too overwhelming for her, so she came here. She states that she has not slept for two days, that her mind is just racing. We spoke about adjusting her medications and discontinuing the Wellbutrin which she is okay with. She was agreeable to try the trazodone at nighttime. Claims that her appetite is good. Complains of lactose intolerance. will make changes in her diet, and encouraged her to not consume dairy. At this time patient denies any suicidal or homicidal ideations, intent or plan. Patient denies any auditory, visual hallucinations and denies any paranoia or delusions. Patient denies any side effects from the medications and has been compliant with meds. Mental Status Exam: General Appearance: Patient appears to be stated age is alert, directable, and cooperative. Fair hygiene and grooming. Behavior: Patient is calmly seated without any agitated behavior. Speech: Patient's speech is fluent and nonpressured. [place] Mood/Affect: Mood is improving mildly, affect is congruent and constricted. Suicidality/Homicidality: Patient denies having any suicidal or homicidal ideation intent or plan. Perceptions: Patient denies any visual hallucinations and denies any auditory hallucinations Though content/process: There is no evidence of any delusional thought content and thought process is linear and goal-directed. Fairly concrete Memory and concentration: AOX3, grossly intact for the purposes of this session Judgment and insight: Limited, improving mildly Assessment Bipolar disorder, depressed episode ADHD PTSD Nicotine dependence Plan: -Patient continues to meet criteria for inpatient psychiatric admission for symptom stabilization and safety. Patient has signed adult voluntary form and medication consent and was placed in patient's chart. -Medications: d/c Wellbutrin due to likely increasing patient's anxiety, Add Zoloft mg daily for mood/anxiety, Abilify 10 mg daily for mood stabilization, Minipress 1 mg p.o. nightly, trazodone changed to 50 mg nightly for i nsomnia/mood. -When necessary Ativan and Haldol for agitation/aggression. -NRT -nicotine patch -SW on board for discharge planning. Encouraged the patient to participate in milieu. Possible discharge in 2 to 3 days once patient improves psychiatrically
[2024-02-22] MEDS: SERTRALINE 50 MG TAB PO SCH (13:31)
[2024-02-22] MEDS: MAGNESIUM HYDROXIDE 2,400 MG/30 ML CUP PO PRN (15:02)
[2024-02-22] MEDS ORDERED: ALBUTEROL NEBULIZED (CONC) 5 MG, SODIUM CHLORIDE 0.9% NEBULIZ 3 ML INHALATION PRN (18:13)
[2024-02-22] MEDS ORDERED: SIMETHICONE 80 MG CHEWABLE PO PRN (18:14)
--- NOTE | 2024-02-22 18:17 | P.HPMEDMHU ---
History of Present Illness H&P Date: 02/22/24 Patient is a 23-year-old female with a past medical history of asthma who is admitted to the psychiatric unit for treatment of bipolar disorder with depressed episode. Patient states that she occasionally uses her inhaler. She is currently denying any shortness of breath or chest pain. Patient states that sometimes she has bloating issues. Patient states that she smokes cigarettes and also marijuana. ROS: 10 ROS reviewed and are negative except as noted in HPI Physical exam General: Alert and oriented and well-nourished. Eye: [PERRL, EOMI, normal conjunctiva]. HENT: [Normocephalic, clear tympanic membranes, normal hearing, moist oral mucosa, no scleral icterus, no sinus tenderness]. Neck: [Supple, non-tender, no carotid bruits, no JVD, no lymphadenopathy]. Lungs: [Clear to auscultation and percussion, non-labored respiration]. Heart: [Normal rate, regular rhythm, no murmur, gallop or edema]. Abdomen: [Soft, non-tender, non-distended, normal bowel sounds, no masses]. Musculoskeletal: [Normal range of motion and strength, no tenderness or swelling]. Skin: [Skin is warm, dry and pink, no rashes or lesions]. Neurologic: [Awake, alert, and oriented X3, CN II-XII intact]. Psychiatric: [Cooperative, appropriate mood and affect]. Assessment and plan Bipolar disorder As per your psychiatry management Mild asthma Albuterol inhaler as needed Bloating Will start simethicone as needed Tobacco use Marijuana use Patient counseled on smoking cessation Thank you for the consult. Please do not hesitate to contact us for any questions. Past Medical History Past Medical History: Asthma Additional Past Medical History / Comment(s): ADHD History of Any Multi-Drug Resistant Organisms: None Reported Past Surgical History: No Surgical Hx Reported Past Anesthesia/Blood Transfusion Reactions: No Reported Reaction Smoking Status: Current every day smoker, Vaper - Past Family History Father History Unknown: Yes Mother History Unknown: Yes Medications and Allergies Home Medications Medication Instructions Recorded Confirmed Type Abilify(Unknown) 1 tab PO DIRECTED 02/20/24 02/20/24 History Allergies Allergy/AdvReac Type Severity Reaction Status Date / Time No Known Allergies Allergy Verified 02/20/24 17:01 Physical Exam Osteopathic Statement: *. No significant issues noted on an osteopathic st ructural exam other than those noted in the History and Physical/Consult. Vitals: Vital Signs Temp Pulse Resp BP Pulse Ox 02/22/24 14:59 97.4 F L 81 16 110/55 98 Cranial Nerve Examination - Cranial Nerves Cranial Nerve I- Olfactory: Intact Cranial Nerve II- Optic: Intact Cranial Nerve III- Oculomotor: Intact Cranial Nerve IV- Trochlear: Intact Cranial Nerve V- Trigeminal: Intact Cranial Nerve - Abducens: Intact Cranial Nerve VII- Facial: Intact Cranial Nerve VIII- Auditory: Intact Cranial Nerve IX- Glossopharyngeal: Intact Cranial Nerve X- Vagus: Intact Cranial Nerve XI- Accessory: Intact Cranial Nerve XII- Hypoglossal: Intact Results CBC & Chem 7: 02/20/24 11:02 02/21/24 17:40 Labs: Abnormal Lab Results - Last 24 Hours (Table) 02/21/24 Range/Units 17:40 BUN 18 H (7-17) mg/dL Thrombosis Risk Factor Assmnt - Choose All That Apply Any of the Below Risk Factors Present?: Yes Each Factor Represents 1 point: Obesity (BMI >25) Other Risk Factors: No Thrombosis Risk Factor Assessment Total Risk Factor Score: 1 Thrombosis Risk Factor Assessment Level: Low Risk
[2024-02-22] MEDS: traZODone HCL 50 MG TAB PO SCH (20:44)
--- NOTE | 2024-02-23 09:59 | P.PN ---
Progress Note - Text Progress Note Date: 02/23/24 Interval History: Patient was seen in group and was directable and agreeable to speak with web content writer in the office. Patient states that she is doing a little better today. Patient claims her mood is high and low having mood swings, and she currently feels down, and lonely. she is showing interest in going to groups. Patient states she slept better last night. Claims that her appetite is good. Department Director spoke with patient about a RAMÍREZ, to ensure compliance, patient agreeable. At this time patient denies any suicidal or homicidal ideations, intent or plan. Patient endorses auditory hallucinations, stating that sometimes it is positive, sometimes negative, denies visual hallucinations and denies any paranoia or delusions. Patient denies any side effects from the medications and has been compliant with meds. Mental Status Exam: General Appearance: Patient appears to be stated age is alert, directable, and cooperative. Fair hygiene and grooming. Behavior: Patient is calmly seated without any agitated behavior. Speech: Patient's speech is fluent and nonpressured. [place] Mood/Affect: Mood is improving mildly, affect is congruent and constricted. improving mildly Suicidality/Homicidality: Patient denies having any suicidal or homicidal ideation intent or plan Perceptions: Patient denies any visual hallucinations and endorses auditory hallucinations Though content/process: There is no evidence of any delusional thought content and thought process is linear and goal-directed. Fairly concrete Memory and concentration: AOX3, grossly intact for the purposes of this session Judgment and insight: Limited, improving mildly Assessment: Bipolar disorder, depressed episode ADHD PTSD Nicotine dependence Plan: -Patient continues to meet criteria for inpatient psychiatric admission for symptom stabilization and safety. Patient has signed adult voluntary form and medication consent and was placed in patient's chart. -Medications: increase Zoloft 100mg daily for mood/anxiety, increase Abilify 15 mg daily for mood stabilization, Minipress 1 mg p.o. nightly, trazodone changed to 50 mg nightly for insomnia/mood. -When necessary Ativan and Haldol for agitation/aggression. -NRT -nicotine patch -SW on board for discharge planning. Encouraged the patient to participate in milieu. Possible discharge in 2 to 3 days once patient improves psychiatrically, with plan to transition onto a RAMÍREZ
[2024-02-23] MEDS: ACETAMINOPHEN TAB 325 MG TAB PO PRN (10:41)
[2024-02-23] MEDS: LORazepam 1 MG TAB PO PRN (19:31)
[2024-02-24] MEDS: ARIPiprazole 15 MG TAB PO SCH (08:28)
[2024-02-24] MEDS: SERTRALINE 100 MG TAB PO SCH (08:28)
--- NOTE | 2024-02-24 09:24 | P.PN ---
Progress Note - Text Progress Note Date: 02/24/24 Interval History: Patient was seen in the hallway and was directable and agreeable to speak with web content writer in the office. Patient states that she feels well rested. Patient is going to groups, and her hygiene is is improving. Claims that her appetite is good. Security Management Specialist spoke with patient about getting her back on a RAMÍREZ, patient agreeable. Patient worried about her living situation. At this time patient denies any suicidal or homicidal ideations, intent or plan. Patient denies auditory hallucinations, denies visual hallucinations and denies any paranoia or delusions. Patient denies any side effects from the medications and has been compliant with meds. Mental Status Exam: General Appearance: Patient appears to be stated age is alert, directable, and cooperative. Fair hygiene and grooming. Behavior: Patient is calmly seated without any agitated behavior. Speech: Patient's speech is fluent and nonpressured. [place], mildly improving Mood/Affect: Mood is improving mildly, affect is congruent and constricted. improving mildly Suicidality/Homicidality: Patient denies having any suicidal or homicidal ideation intent or plan Perceptions: Patient denies any visual hallucinations and denies auditory hallucinations Though content/process: There is no evidence of any delusional thought content and thought process is linear and goal-directed. Fairly concrete Memory and concentration: AOX3, grossly intact for the purposes of this session Judgment and insight: Limited, improving mildly Assessment: Bipolar disorder, depressed episode ADHD PTSD Nicotine dependence Plan: -Patient continues to meet criteria for inpatient psychiatric admission for symptom stabilization and safety. Patient has signed adult voluntary form and medication consent and was placed in patient's chart. -Medications: Zoloft 100mg daily for mood/anxiety, Abilify 15 mg daily for mood stabilization, Minipress 1 mg p.o. nightly, trazodone 50 mg nightly for insomnia/mood. Abilify Maintenna 400mg IM today, 02/23 -When necessary Ativan and Haldol for agitation/aggression. -NRT -nicotine patch -SW on board for discharge planning. Encouraged the patient to participate in milieu. Possible discharge vs Thursday, once patient is transitioned onto a RAMÍREZ and once patient has housing/hotel to go to
[2024-02-24] MEDS: NICOTINE GUM (POLACRILEX) 2 MG GUM BUCCAL PRN (09:45)
[2024-02-24] MEDS: ARIPiprazole IM SYRINGE 400 MG (NO CHARGE) PHARMACY STOCK IM SCH (13:23)
--- NOTE | 2024-02-25 11:36 | P.PN ---
Progress Note - Text Progress Note Date: 02/25/24 Interval History: Patient was seen in her room and was directable and agreeable to speak with wr iter in the office. Patient states she is doing pretty good today. Patient is going to most groups, and her hygiene is is improving. Claims that her appetite is good. Patient received her first dose of Abilify Maintenna on 02/23, and is tolerating it well. Patient is still endorsing anxiety about her living situation, and the shelters being full at this time. She claims that her boyfriend got laid off and told her about it this morning which she is upset about. She states that by Thursday he will have a "plan" for where she can go however until then she does not know which alf she would be excepted to. At this time patient denies any suicidal or homicidal ideations, intent or plan. Patient denies auditory hallucinations, denies visual hallucinations and denies any paranoia or delusions. Patient denies any side effects from the medications and has been compliant with meds. Mental Status Exam: General Appearance: Patient appears to be stated age is alert, directable, and cooperative. Fair hygiene and grooming. Behavior: Patient is calmly seated without any agitated behavior. Speech: Patient's speech is fluent and nonpressured. [place], mildly improving Mood/Affect: Mood is anxious, affect is congruent and constricted. improving mildly Suicidality/Homicidality: Patient denies having any suicidal or homicidal ideation intent or plan Perceptions: Patient denies any visual hallucinations and denies auditory hallucinations Though content/process: There is no evidence of any delusional thought content and thought process is linear and goal-directed. Fairly concrete Memory and concentration: AOX3, grossly intact for the purposes of this session Judgment and insight: Chronically Limited, improving mildly Assessment: Bipolar disorder, depressed episode ADHD PTSD Nicotine dependence Plan: -Patient continues to meet criteria for inpatient psychiatric admission for symptom stabilization and safety. Patient has signed adult voluntary form and medication consent and was placed in patient's chart. -Medications: Zoloft 100mg daily for mood/anxiety, Abilify 15 mg daily for mood stabilization with last dose 03/08, Minipress 1 mg p.o. nightly, trazodone 50 mg nightly for insomnia/mood. Abilify Maintena 400mg IM 02/23, next dose due 03/23 -When necessary Ativan and Haldol for agitation/aggression. -NRT -nicotine patch -SW on board for discharge planning. Encouraged the patient to participate in milieu. Possible discharge Thursday once patient has housing/hotel to go to
[2024-02-26] MEDS: ARIPiprazole 15 MG TAB PO SCH (08:00)
--- NOTE | 2024-02-26 10:31 | P.PN ---
Progress Note - Text Progress Note Date: 02/26/24 Interval History: Patient was seen in her room and was directable and agreeable to speak with wr iter in the office. Patient states she is doing well today. Patient is going to most groups. Claims that her appetite is good. Patient received her first dose of Abilify Maintenna on 02/23, and is tolerating it well. Patient is still endorsing anxiety and worry about her living situation, and the shelters being full at this time. She states that her boyfriend lost his job yesterday, and will not be able to provide a place to stay for them until Thursday. At this time patient denies any suicidal or homicidal ideations, intent or plan. Patient denies auditory hallucinations, denies visual hallucinations and denies any paranoia or delusions. Patient denies any side effects from the medications and has been compliant with meds. Mental Status Exam: General Appearance: Patient appears to be stated age is alert, directable, and cooperative. Fair hygiene and grooming. Behavior: Patient is calmly seated without any agitated behavior. Speech: Patient's speech is fluent and nonpressured. [place], mildly improving Mood/Affect: Mood is anxious, worried, affect is congruent and constricted. improving mildly Suicidality/Homicidality: Patient denies having any suicidal or homicidal ideation intent or plan Perceptions: Patient denies any visual hallucinations and denies auditory hallucinations Though content/process: There is no evidence of any delusional thought content and thought process is linear and goal-directed. Fairly concrete Memory and concentration: AOX3, grossly intact for the purposes of this session Judgment and insight: Chronically Limited, improving mildly Assessment: Bipolar disorder, depressed episode ADHD PTSD Nicotine dependence Plan: -Patient continues to meet criteria for inpatient psychiatric admission for symptom stabilization and safety. Patient has signed adult voluntary form and medication consent and was placed in patient's chart. -Medications: Zoloft 100mg daily for mood/anxiety, Abilify 15 mg daily PO for mood stabilization with last dose 03/08, Minipress 1 mg p.o. nightly, trazodone 50 mg nightly for insomnia/mood. Abilify Maintena 400mg IM 02/23, next dose due 03/23 -When necessary Ativan and Haldol for agitation/aggression. -NRT -nicotine patch -SW on board for discharge planning. Encouraged the patient to participate in milieu. Possible discharge Thursday once patient has housing/hotel to go to
--- NOTE | 2024-02-27 10:41 | P.PN ---
Subjective Progress Note Date: 02/27/24 Principal diagnosis: Assessment: Bipolar disorder, depressed episode ADHD PTSD Nicotine dependence Patient Name: Nicole Quiñones Date of : [birth year] Patient Status: Inpatient Attending Provider: Shayne Garcia Date: 02/27/24 08:39 Initialization Date: 02/26/24 08:39 Progress Note Date: 02/27/24 Interval History: the patient was seen chart was reviewed and case discussed with the nursing staff The patient exhibited talk to this writer technical publications in the hallway Patient reports that she is hospitalized here for anxiety and some depression She said that she is improving slowly HER friend was shot last year and that she had been dealing with other losses in life and that she's been dealing with PTSD symptoms for some time She admits that she likes to smoke as well as used cannabis whenever she can She does not feel that she has a problem with cannabis She also reports that she has mild asthma and occasionally she needs some inhalers At this time patient denies any suicidal or homicidal ideations, intent or plan . Patient denies auditory hallucinations, denies visual hallucinations and denies any paranoia or delusions. Patient denies any side effects from the medications and has been compliant with meds. Mental Status Exam: General Appearance: Patient appears to be stated age is alert, directable, and cooperative. patient was wearing a T-shirt with the [employer] picture on it Behavior: patient is friendly and cooperative Speech: Patient's speech is fluent and nonpressured. [place], mildly improving Mood/Affect: Mood is blunted but patient does seem to show some emotions well discussing her issues Suicidality/Homicidality: Patient denies having any suicidal or homicidal ideation intent or plan Perceptions: Patient denies any visual hallucinations and denies auditory hallucinations Though content/process: There is no evidence of any delusional thought content and thought process is linear and goal-directed. Fairly concrete Memory and concentration: AOX3, grossly intact for the purposes of this session Judgment and insight: Chronically Limited, improving mildly Assessment: Bipolar disorder, depressed episode ADHD PTSD Nicotine dependence Plan: -Patient continues to meet criteria for inpatient psychiatric admission for symptom stabilization and safety.patient admits that she is learning better coping skills and is dealing with her PTSD issues Patient has signed adult voluntary form and medication consent and was placed in patient's chart. -Medications: Zoloft 100mg daily for mood/anxiety, Abilify 15 mg daily PO for mood stabilization with last dose 03/08, Minipress 1 mg p.o. nightly, trazodone 50 mg nightly for insomnia/mood . Abilify Maintena 400mg IM 02/23, next dose due 03/23 -When necessary Ativan and Haldol for agitation/aggression. -NRT -nicotine patch - on board for discharge planning. Encouraged the patient to participate in milieu. Possible discharge Thursday once patient has housing/hotel to go to continue to encourage the patient to participate in on the herrera activities Continue supportive care Juan Vargas M.D. Objective - Vital Signs Vital signs: Vital Signs Temp 98.2 F 02/27/24 06:06 Pulse 98 02/27/24 06:06 Resp 20 02/27/24 06:06 BP 108/60 02/27/24 06:06 Pulse Ox 98 02/27/24 06:06 FiO2 - Labs CBC & Chem 7: 02/20/24 11:02 02/21/24 17:40
--- NOTE | 2024-02-28 10:12 | P.PN ---
Subjective Progress Note Date: 02/28/24 Principal diagnosis: Assessment: Bipolar disorder, depressed episode ADHD PTSD Nicotine dependence Patient Name: Nicole Quiñones Date of : [birth year] Patient Status: Inpatient Attending Provider: Shayne Garcia Date: 02/28/24 08:39 Initialization Date: 02/26/24 08:39 Progress Note Date: 02/28/24 Interval History: the patient was seen chart was reviewed and case discussed with the nursing staff The patient reports that the prazosin may be helpingWith the panic attacks but that she feels that her dreams have become more sadder Patient otherwise states that she feels that she is making progress At this time patient denies any suicidal or homicidal ideations, intent or plan. Patient denies auditory hallucinations, denies visual hallucinations and denies any paranoia or delusions. Patient denies any side effects from the medications and has been compliant with meds. Mental Status Exam: General Appearance: Patient appears to be stated age is alert, directable, and cooperative. Behavior: patient is friendly and cooperative Speech: Patient's speech is fluent and nonpressured. [place], mildly improving Mood/Affect: Mood is blunted but patient does seem to show some emotions well discussing her issues Suicidality/Homicidality: Patient denies having any suicidal or homicidal ideation intent or plan Perceptions: Patient denies any visual hallucinations and denies auditory hallucinations Though content/process: There is no evidence of any delusional thought content and thought process is linear and goal-directed. Fairly concrete Memory and concentration: AOX3, grossly intact for the purposes of this session Judgment and insight: Chronically Limited, improving mildly Assessment: Bipolar disorder, depressed episode ADHD PTSD Nicotine dependence Plan: -Patient continues to meet criteria for inpatient psychiatric admission for symptom stabilization and safety.patient admits that she is learning better coping skills and is dealing with her PTSD issues Patient has signed adult voluntary form and medication consent and was placed in patient's chart. -Medications: Zoloft 100mg daily for mood/anxiety, Abilify 15 mg daily PO for mood stabilization with last dose 03/08, Minipress 1 mg p.o. nightly,Patient was encouraged to continue taking the prazosin as prescribed trazodone 50 mg nightly for insomnia/mood . Abilify Maintena 400mg IM 4/24, next dose due 03/23 -When necessary Ativan and Haldol for agitation/aggression. -NRT -nicotine patch - on board for discharge planning. Encouraged the patient to participate in milieu. Possible discharge Thursday once patient has housing/hotel to go to continue to encourage the patient to participate in on the herrera activities Continue supportive care Juan Vargas M.D. Objective - Vital Signs Vital signs: Vital Signs Temp 98.7 F 02/28/24 06:24 Pulse 67 02/28/24 06:24 Resp 20 02/28/24 06:24 BP 113/57 02/28/24 06:24 Pulse Ox 96 02/28/24 06:24 FiO2 - Labs CBC & Chem 7: 02/20/24 11:02 02/21/24 17:40
[2024-02-28] MEDS: ALBUTEROL INHALER 60 PUFF/8 GM INHALER (MHU) INHALATION PRN (21:23)
[2024-02-29 07:02] VITALS: BP 134/75; PULSE 82; RESP 16; TEMP 98
--- NOTE | 2024-02-29 10:16 | P.DS ---
Providers Date of admission: 02/20/24 17:57 Expected date of discharge: 02/29/24 Attending physician: Shayne Garcia MD Consults: 02/20/24 18:13 Consult Physician Routine Consulting Provider: Anastacia Herrera Consult Reason/Comments: Medical H&P Do you want consulting provider notified?: Yes Primary care physician: Stated None - Discharge Diagnosis(es) (1) Bipolar disorder current episode depressed Current Visit: Yes Status: Acute Priority: High (2) ADHD Current Visit: Yes Status: Acute Priority: Low (3) PTSD (post-traumatic stress disorder) Current Visit: Yes Status: Acute Priority: Medium (4) Nicotine dependence Current Visit: No Status: Acute Priority: Low Hospital Course: Admission HPI: Admission note was completed by Dr Ga "Past history she has been diagnosed in the past with ADHD and bipolar and PTSD Past medications include Haldol and one time she was on Abilify 10 Depakote she is not sure how much and Seroquel she is also been on Trileptal. When she takes too many medicines she does get tired and confused during the day. She has been taking Abilify for about a week and a half at 5 mg without marked benefit. She agrees with ADHD diagnosis saying she is always set things down in the can be right in front of her and she can't see them asked to remember things and forgets and everybody treats her like she is stupid when in fact she just has trouble with focus and memory. She also agrees with the bipolar diagnosis saying her moods were shift and sometimes she is loud impulsive doesn't need to sleep makes rash decisions and then she'll go into the time of depression where she can't function. Especially when she is in the high she hears her own thoughts but they're very loud she can't think of anything else and they're negative and put her down." Hospital course: Upon admission to the unit patient was directable and agreeable to commence treatment and signed adult voluntary form. Patient got along well with other patients on the unit and followed unit protocol. Patient was compliant with the medications and denied any side effects throughout hospital course. Patient was started on Zoloft increased to dose 100 mg daily for mood/anxiety, Abilify increased to dose of 15 mg p.o. daily for mood stabilization/psychosis, was transitioned onto Abilify Maintenna given 400 mg IM on 02/23 next dose will be due on 03/23. Minipress was continued at 1 mg nightly for nightmares, trazodone 50 mg nightly for insomnia/mood. Patient spoke of her stressors and engaged in therapy both group and individual. Patient was also seen by medical team for history and physical exam. Throughout the course of the hospitalization patient gradually improved with regards to mood, anxiety, mood stabilization, sleep and returned back to their baseline level of functioning. On the day of discharge patient denied any suicidal or homicidal ideations intent or plan denied any auditory or visual hallucinations. Patient endorsed wanting to live for her [facility] and her future. The patient denied any access to guns or weapons. Patient denied any paranoia and did not endorse any delusions. Patient does not have a significant history of substance abuse and was counseled on abstaining from all substances including alcohol and marijuana. Patient was also counseled on the medications and need for regular compliance and was encouraged to follow-up with their outpatient appointment for mental health and also for primary care. Patient today will be discharged to her friend's house with [facility] follow-up. Mental status exam: General Appearance: Patient appears to be have short hair, wearing glasses, stated age is alert, pleasant, and cooperative. Patient is in no acute distress and has improved hygiene and grooming Behavior: Patient is calmly seated without any agitated behavior. Speech: Patient's speech is fluent and nonpressured. Mood/Affect: Patient reports their mood is "good", affect is congruent Suicidality/Homicidality: Patient denies having any suicidal or homicidal ideation intent or plan. Perceptions: Patient denies any auditory or visual hallucinations. Though content/process: There is no evidence of any delusional thought content and thought process is linear and goal-directed. Memory and concentration: AOX3, grossly intact for the purposes of this session. Can spell "WORLD" backwards correctly. Judgment and insight: Chronically limited, improved with guarded prognosis Impression: Bipolar disorder, depressed episode ADHD PTSD Nicotine dependence Plan: -Continue with discharge today as patient has improved and stabilized psychiatrically and is not currently an imminent threat to herself and/or others. Patient will remain at chronically elevated risk for harm to self and/or others due to her impulsivity. -Continue medications: Zoloft 100 mg daily for mood/anxiety, Abilify p.o. 15 mg daily for mood stabilization for 8 more days then discontinue. Patient was given Abilify Maintena 400 mg IM on 02/23, next dose will be due at [facility] on 03/23. Minipress 1 mg nightly for nightmares, trazodone 50 mg nightly for insomnia/mood. -Patient was counseled on the need for medication compliance and appropriate follow-up at mental health and also primary care for medical issues. Patient verbalized understanding and agreed. -Social work to help coordinate patient's discharge today to friend's house. Social work also to arrange for patients follow up appointments with [facility] for psychiatric care along with follow up with primary care provider. -Patient counseled on abstaining from recreational drugs and marijuana and alcohol. Was informed/educated on the adverse effects on their physical and mental health. Patient verbally agreed and understood. -Patient was instructed to return to the hospital or seek immediate medical care if their psychiatric or medical symptoms do worsen or reoccur. Allergies Allergy/AdvReac Type Severity Reaction Status Date / Time No Known Allergies Allergy Verified 02/20/24 17:01 Laboratory Results WBC 9.4 k/uL (3.8-10.6) 02/20/24 11:02 RBC 5.17 m/uL (3.80-5.40) 02/20/24 11:02 Hgb 14.6 gm/dL (11.4-16.0) 02/20/24 11:02 Hct 44.5 % (34.0-46.0) 02/20/24 11:02 MCV 86.1 fL (80.0-100.0) 02/20/24 11:02 MCH 28.2 pg (25.0-35.0) 02/20/24 11:02 MCHC 32.8 g/dL (31.0-37.0) 02/20/24 11:02 RDW 13.6 % (11.5-15.5) 02/20/24 11:02 Plt Count 188 k/uL (150-450) 02/20/24 11:02 MPV 10.0 02/20/24 11:02 Neutrophils % 75 % 02/20/24 11:02 Lymphocytes % 17 % 02/20/24 11:02 Monocytes % 6 % 02/20/24 11:02 Eosinophils % 1 % 02/20/24 11:02 Basophils % 0 % 02/20/24 11:02 Neutrophils # 7.0 k/uL (1.3-7.7) 02/20/24 11:02 Lymphocytes # 1.6 k/uL (1.0-4.8) 02/20/24 11:02 Monocytes # 0.5 k/uL (0-1.0) 02/20/24 11:02 Eosinophils # 0.1 k/uL (0-0.7) 02/20/24 11:02 Basophils # 0.0 k/uL (0-0.2) 02/20/24 11:02 Sodium 137 mmol/L (137-145) 02/21/24 17:40 Potassium 4.1 mmol/L (3.5-5.1) 02/21/24 17:40 Chloride 107 mmol/L (98-107) 02/21/24 17:40 Carbon Dioxide 25 mmol/L (22-30) 02/21/24 17:40 Anion Gap 5 mmol/L 02/21/24 17:40 BUN 18 mg/dL (7-17) H 02/21/24 17:40 Creatinine 0.74 mg/dL (0.52-1.04) 02/21/24 17:40 Est GFR (CKD-EPI)AfAm >90 (>60 ml/min/1.73 sqM) 02/21/24 17:40 Est GFR (CKD-EPI)NonAf >90 (>60 ml/min/1.73 sqM) 02/21/24 17:40 Glucose 78 mg/dL (74-99) 02/21/24 17:[address] Glu mg/dL 105 mg/dL 02/21/24 17:40 Hemoglobin A1c 5.3 % (<=6.0) 02/21/24 17:40 Calcium 9.0 mg/dL (8.4-10.2) 02/21/24 17:40 Total Bilirubin 0.5 mg/dL (0.2-1.3) 02/21/24 17:40 AST 28 U/L (14-36) 02/21/24 17:40 ALT 20 U/L (4-34) 02/21/24 17:40 Alkaline Phosphatase 86 U/L (38-126) 02/21/24 17:40 Total Protein 7.1 g/dL (6.3-8.2) 02/21/24 17:40 Albumin 4.1 g/dL (3.5-5.0) 02/21/24 17:40 Triglycerides 99.40 mg/dL (0.00-149.00) 02/21/24 17:40 Cholesterol 155.00 mg/dL (0.00-200.00) 02/21/24 17:40 LDL Cholesterol, Calc 78.2 mg/dL (0.0-131.0) 02/21/24 17:40 VLDL Cholesterol, Calc 19.88 mg/dL (5.00-40.00) 02/21/24 17:40 HDL Cholesterol 56.90 mg/dL (40.00-60.00) 02/21/24 17:40 Cholesterol/HDL Ratio 2.72 Ratio 02/21/24 17:40 TSH 1.790 mIU/L (0.465-4.680) 02/21/24 17:40 Urine Color Colorless 02/21/24 17:00 Urine Appearance Clear (Clear) 02/21/24 17:00 Urine pH 6.5 (5.0-8.0) 02/21/24 17:00 Ur Specific [place] 1.012 (1.001-1.035) 02/21/24 17:00 Urine Protein Negative (Negative) 02/21/24 17:00 Urine Glucose (UA) Negative (Negative) 02/21/24 17:00 Urine Ketones Negative (Negative) 02/21/24 17:00 Urine Blood Negative (Negative) 02/21/24 17:00 Urine Nitrite Negative (Negative) 02/21/24 17:00 Urine Bilirubin Negative (Negative) 02/21/24 17:00 Urine Urobilinogen <2.0 mg/dL (<2.0) 02/21/24 17:00 Ur Leukocyte Esterase Negative (Negative) 02/21/24 17:00 Urine RBC 2 /hpf (0-5) 02/20/24 10:39 Urine WBC 2 /hpf (0-5) 02/20/24 10:39 Ur Squamous Epith Cells 33 /hpf (0-4) H 02/20/24 10:39 Amorphous Sediment Rare /hpf (None) H 02/20/24 10:39 Urine Bacteria Rare /hpf (None) H 02/20/24 10:39 Urine Mucus Rare /hpf (None) H 02/20/24 10:39 Urine HCG, Qual Not Detected (Not Detectd) 02/20/24 10:39 Urine Opiates Screen Negative (Negative) 02/20/24 10:39 Urine Methadone Screen Negative (Negative) 02/20/24 10:39 Ur Propoxyphene Screen Negative (Negative) 02/20/24 10:39 Urine Barbiturates Negative (Negative) 02/20/24 10:39 Ur Phencyclidine Scrn Negative (Negative) 02/20/24 10:39 Ur Amphetamine Screen Negative (Negative) 02/20/24 10:39 U Benzodiazepines Scrn Negative (Negative) 02/20/24 10:39 Urine Cocaine Screen Negative (Negative) 02/20/24 10:39 U Cannabinoids Screen Negative (Negative) 02/20/24 10:39 Urine Alcohol Negative (Negative) 02/20/24 10:39 Influenza Type A (PCR) Not Detected (Not Detectd) 02/20/24 16:51 Influenza Type B (PCR) Not Detected (Not Detectd) 02/20/24 16:51 RSV (PCR) Not Detected (Not Detectd) 02/20/24 16:51 SARS-CoV-2 (PCR) Not Detected (Not Detectd) 02/20/24 16:51 Vital Signs Temp 98.0 F 02/29/24 06:00 Pulse 82 02/29/24 06:00 Resp 16 02/29/24 06:00 BP 134/75 02/29/24 06:00 Pulse Ox 98 02/29/24 06:00 FiO2 Intake & Output 02/28/24 02/29/24 02/29/24 18:59 06:59 18:59 Weight 76.9 kg Patient Condition at Discharge: Stable Plan - Discharge Summary Discharge Rx Participant: Yes New Discharge Prescriptions: New traZODone HCL [Desyrel] 50 mg PO HS 30 Days #30 tab ARIPiprazole [Abilify] 15 mg PO DAILY 8 Days #8 tab Nicotine 14Mg/24Hr Patch [Habitrol] 1 patch TRANSDERM DAILY 14 Days #14 patch Prazosin [Minipress] 1 mg PO HS 30 Days #30 cap Albuterol Inhaler [Ventolin Hfa Inhaler] 4 puff INHALATION QID PRN 30 Days #1 each PRN Reason: SOB/WHEEZE Sertraline [Zoloft] 100 mg PO DAILY 30 Days #30 tab ARIPiprazole IM SYRINGE [Abilify Maintena Syringe] 400 mg IM Q28D #1 each Discontinued Abilify(Unknown) 1 tab PO DIRECTED Discharge Medication List ARIPiprazole IM SYRINGE [Abilify Maintena Syringe] 400 mg IM Q28D #1 each 02/29/24 [Rx] ARIPiprazole [Abilify] 15 mg PO DAILY 8 Days #8 tab 02/29/24 [Rx] Albuterol Inhaler [Ventolin Hfa Inhaler] 4 puff INHALATION QID PRN 30 Days #1 each 02/29/24 [Rx] Nicotine 14Mg/24Hr Patch [Habitrol] 1 patch TRANSDERM DAILY 14 Days #14 patch 02/29/24 [Rx] Prazosin [Minipress] 1 mg PO HS 30 Days #30 cap 02/29/24 [Rx] Sertraline [Zoloft] 100 mg PO DAILY 30 Days #30 tab 02/29/24 [Rx] traZODone HCL [Desyrel] 50 mg PO HS 30 Days #30 tab 02/29/24 [Rx] Follow up Appointment(s)/Referral(s): [facility] [Outside] - 03/02/24 9:00 am (03/02/2024 9:00AM - 10:00AM [facility] 03/04/2024 8:00AM - 9:00AM [facility] ) None,Stated [Primary Care Provider] - 1-2 days Patient Instructions/Handouts: Depression (DC) Activity/Diet/Wound Care/Special Instructions: Avoid the use of street drugs and alcohol. Take all medications as prescribed. When you are in need of refills on your medications, please contact your medical provider and/or outpatient psychiatrist/provider to have this done. Please go to your scheduled outpatient appointment for aftercare treatment. If symptoms return or become worse, call the crisis line at and/or go to the nearest emergency room for evaluation. National Suicide Hotline 988 Discharge Disposition: HOME SELF-CARE
== END 2024-02-29 12:45 | disposition home or self-care (01) | DRG 753 ==
LOC: EC 10:15 → 3MHU 17:57
PROVIDERS: ADMIT Psychiatry & Neurology Psychiatry; ATTEND Psychiatry & Neurology Psychiatry
DX: F31.30 Bipolar disorder, current episode depressed, mild or moderate severity, unspecified (principal); R45.851 Suicidal ideations; J45.909 Unspecified asthma, uncomplicated; Z11.52 Encounter for screening for COVID-19; F90.9 Attention-deficit hyperactivity disorder, unspecified type; F43.10 Post-traumatic stress disorder, unspecified; E73.9 Lactose intolerance, unspecified; G47.00 Insomnia, unspecified; F41.0 Panic disorder [episodic paroxysmal anxiety]; F12.90 Cannabis use, unspecified, uncomplicated; F17.210 Nicotine dependence, cigarettes, uncomplicated; Z71.6 Tobacco abuse counseling; Z79.899 Other long term (current) drug therapy; Z59.41 Food insecurity; Z59.82 Transportation insecurity; Z59.12 Inadequate housing utilities; Z59.819 Housing instability, housed unspecified; Z71.51 Drug abuse counseling and surveillance of drug abuser; Z71.41 Alcohol abuse counseling and surveillance of alcoholic; Z81.8 Family history of other mental and behavioral disorders
CPT/HCPCS: 36415; 80053; 80061; 80306; 81001; 81003; 81025; 82075; 83036; 84443; 85025; 87636; 99285

== ENCOUNTER 2024-05-21 08:31 | Emergency (ER) | payer OTHER ==
[2024-05-21 08:35] VITALS: PULSE 74; RESP 18
[2024-05-21] MEDS: SODIUM CHLORIDE 0.9% 1,000 ML IV STA (08:56)
--- NOTE | 2024-05-21 09:01 | ED ---
Recheck HPI - General Chief Complaint: Recheck/Abnormal Lab/Rx Stated Complaint: STD testing-Abd pain Time Seen by Provider: 05/21/24 08:59 Source: patient, RN notes reviewed Mode of arrival: ambulatory Limitations: no limitations - History of Present Illness Initial Comments: 23-year-old female presented to the ER with a chief complaint of right-sided abdominal pain. She states has been ongoing for a while. She does report an episode of nausea and vomiting yesterday evening. She describes the pain as sharp in nature. She does report some mild radiation to her lower back. Patient is also concerned of and STDs and would like to be tested. She denies any vaginal discharge. She does admit to recent diarrhea. Denies any fevers, chills, chest pain, shortness of breath, or urinary complaints. - Related Data Previous Rx's Medication Instructions Recorded ARIPiprazole IM SYRINGE [Abilify 400 mg IM Q28D #1 each 02/29/24 Maintena Syringe] ARIPiprazole [Abilify] 15 mg PO DAILY 8 Days #8 tab 02/29/24 Albuterol Inhaler [Ventolin Hfa 4 puff INHALATION QID PRN 30 Days 02/29/24 Inhaler] #1 each Nicotine 14Mg/24Hr Patch [Habitrol] 1 patch TRANSDERM DAILY 14 Days 02/29/24 #14 patch Prazosin [Minipress] 1 mg PO HS 30 Days #30 cap 02/29/24 Sertraline [Zoloft] 100 mg PO DAILY 30 Days #30 tab 02/29/24 traZODone HCL [Desyrel] 50 mg PO HS 30 Days #30 tab 02/29/24 Doxycycline [Vibramycin] 100 mg PO BID #20 capsule 05/21/24 metroNIDAZOLE [Flagyl] 500 mg PO BID #4 tab 05/21/24 Allergies Allergy/AdvReac Type Severity Reaction Status Date / Time No Known Allergies Allergy Verified 05/21/24 08:35 Review of Systems ROS Statement: Those systems with pertinent positive or pertinent negative responses have been documented in the HPI. ROS Other: All systems not noted in ROS Statement are negative. Past Medical History Past Medical History: Asthma Additional Past Medical History / Comment(s): ADHD History of Any Multi-Drug Resistant Organisms: None Reported Past Surgical History: No Surgical Hx Reported Past Anesthesia/Blood Transfusion Reactions: No Reported Reaction Past Psychological History: ADD/ADHD, Anxiety, Bipolar, Depression, Panic Disorder Smoking Status: Current every day smoker, Vaper Past Alcohol Use History: Rare Past Drug Use History: Marijuana - Past Family History Father History Unknown: Yes Mother History Unknown: Yes General Exam Limitations: no limitations General appearance: alert, in no apparent distress Respiratory exam: Present: normal lung sounds bilaterally. Absent: respiratory distress, wheezes, rales, rhonchi, stridor Cardiovascular Exam: Present: regular rate, normal rhythm, normal heart sounds. Absent: systolic murmur, diastolic murmur, rubs, gallop, clicks GI/Abdominal exam: Present: soft, tenderness (Right upper quadrant), normal bowel sounds Skin exam: Present: warm, dry, intact, normal color. Absent: rash Course Vital Signs 05/21/24 05/21/24 05/21/24 08:34 10:58 11:16 Temperature 97.9 F 98.1 F 98.1 F Pulse Rate 74 74 74 Respiratory 18 18 18 Rate Blood Pressure 128/73 122/76 122/76 O2 Sat by Pulse 97 99 99 Oximetry Medical Decision Making - Medical Decision Making Was pt. sent in by a medical professional or institution (, PA, DIRECTOR STAFFING, urgent care, hospital, or intermediate...) When possible be specific @ -No Did you speak to anyone other than the patient for history (EMS, parent, family, police, friend...)? What history was obtained from this source @ -No Did you review nursing and triage notes (agree or disagree)? Why? @ -I reviewed and agree with nursing and triage notes Were old charts reviewed (outside hosp., previous admission, EMS record, old EKG, old radiological studies, urgent care reports/EKG's, intermediate records)? Report findings @ -No old charts were reviewed Differential Diagnosis (chest pain, altered mental status, abdominal pain women, abdominal pain men, vaginal bleeding, weakness, fever, dyspnea, syncope, headache, dizziness, GI bleed, back pain, seizure, CVA, palpatations, mental health, musculoskeletal)? @ -Differential Abdominal Pain Women:Appendicitis, Cholecystitis, diverticulosis, ischemic bowel, pancreatitis, hepatitis, UTI, gastroenteritis, AAA, incarcerated hernia, bowel obstruction, constipation, inflammatory bowel, hepatitis, peptic ulcer disease, splenic infarction, perforated viscus, vulvitis, ovarian torsion, PID, kidney stone, placenta abruption, this is not meant to be an all-inclusive list EKG interpreted by me (3pts min.). @ -None X-rays interpreted by me (1pt min.). @ -None done CT interpreted by me (1pt min.). @ -None done U/S interpreted by me (1pt. min.). @ -Gallbladder ultrasound negative for acute process. What testing was considered but not performed or refused? (CT, X-rays, U/S, labs)? Why? @ -None What meds were considered but not given or refused? Why? @ -None Did you discuss the management of the patient with other professionals (professionals i.e. , PA, DIRECTOR STAFFING, lab, RT, psych nurse, criminal justice social worker, regional airline pilot, teacher, promotion officer, nurse case manager)? Give summary @ -No Was smoking cessation discussed for >3mins.? @ -No Was critical care preformed (if so, how long)? @ -No Were there social determinants of health that impacted care today? How? (Homelessness, low income, unemployed, alcoholism, drug addiction, transportation, low edu. Level, literacy, decrease access to med. care, senior living, rehab)? @ -Yes, patient is homeless. Was there de-escalation of care discussed even if they declined (Discuss DNR or withdrawal of care, Hospice)? DNR status @ -No What co-morbidities impacted this encounter? (DM, HTN, Smoking, COPD, CAD, Cancer, CVA, ARF, Chemo, Hep., AIDS, mental health diagnosis, sleep apnea, morbid obesity)? @ -None Was patient admitted / discharged? Hospital course, mention meds given and route, prescriptions, significant lab abnormalities, going to OR and other pertinent info. @ -Discharge. 23-year-old female presented to ER with chief complaint of abdominal pain. History and physical exam completed. Vitals stable. Patient in no signs of acute distress and nontoxic-appearing. Exam remarkable for right upper quadrant tenderness with normal bowel sounds. No rebound or guarding. Laboratory studies obtained unremarkable. Urine analysis concerning of dehydration. Patient did receive IV fluids and symptomatic treatment in the ER. Bladder ultrasound negative for acute process. Patient also would like to be tested and prophylactically treated for STDs. Patient received IV Rocephin prior to discharge. Doxycycline and Flagyl prescribed. Advised patient to notify all sexual partners and with positive results will be communicated back to her. Upon reevaluation, patient resting comfortably in exam room no signs of acute distress. Results discussed with patient, all questions answered. Patient stable for discharge at this time. Advise close follow-up with PCP, referrals given. Community resources given as well. Return parameters di scussed. Patient discharged stable condition. Patient verbally expressed understanding and agreement care plan. Case discussed with ED attending, Dr. Delarosa. Undiagnosed new problem with uncertain prognosis? @ -No Drug Therapy requiring intensive monitoring for toxicity (Heparin, Nitro, Insulin, Cardizem)? @ -No Were any procedures done? @ -No Diagnosis/symptom? @ -Abdominal pain/ STD exposure Acute, or Chronic, or Acute on Chronic? @ -Acute Uncomplicated (without systemic symptoms) or Complicated (systemic symptoms)? @ -Uncomplicated Side effects of treatment? @ -No Exacerbation, Progression, or Severe Exacerbation? @ -No Poses a threat to life or bodily function? How? (Chest pain, [place], [place], pneumonia, PE, COPD, DKA, ARF, appy, cholecystitis, CVA, Diverticulitis, Homicidal, Suicidal, threat to staff... and all critical care pts) @ -Low likelihood at this time. - Lab Data Result diagrams: 05/21/24 08:49 05/21/24 08:49 Lab Results 05/21/24 05/21/24 05/21/24 Range/Units 08:49 08:49 08:49 WBC 7.7 (3.8-10.6) k/uL RBC 4.89 (3.80-5.40) m/uL Hgb 13.7 (11.4-16.0) gm/dL Hct 41.7 (34.0-46.0) % MCV 85.1 (80.0-100.0) fL MCH 28.0 (25.0-35.0) pg MCHC 32.8 (31.0-37.0) g/dL RDW 13.2 (11.5-15.5) % Plt Count 231 (150-450) k/uL MPV 9.3 Neutrophils % 69 % Lymphocytes % 20 % Monocytes % 8 % Eosinophils % 0 % Basophils % 1 % Neutrophils # 5.3 (1.3-7.7) k/uL Lymphocytes # 1.6 (1.0-4.8) k/uL Monocytes # 0.6 (0-1.0) k/uL Eosinophils # 0.0 (0-0.7) k/uL Basophils # 0.0 (0-0.2) k/uL Sodium (137-145) mmol/L Potassium (3.5-5.1) mmol/L Chloride (98-107) mmol/L Carbon Dioxide (22-30) mmol/L Anion Gap mmol/L BUN (7-17) mg/dL Creatinine (0.52-1.04) mg/dL Est GFR (CKD-EPI)AfAm (>60 ml/min/1.73 sqM) Est GFR (CKD-EPI)NonAf (>60 ml/min/1.73 sqM) Glucose (74-99) mg/dL Plasma Lactic Acid Rey (0.7-2.0) mmol/L Calcium (8.4-10.2) mg/dL Total Bilirubin (0.2-1.3) mg/dL AST (14-36) U/L ALT (4-34) U/L Alkaline Phosphatase (38-126) U/L Total Protein (6.3-8.2) g/dL Albumin (3.5-5.0) g/dL Amylase (30-110) U/L Lipase (23-300) U/L Urine Color Yellow Urine Appearance Cloudy H (Clear) Urine pH 6.0 (5.0-8.0) Ur Specific Gilmer 1.036 H (1.001-1.035) Urine Protein 1+ H (Negative) Urine Glucose (UA) Negative (Negative) Urine Ketones 2+ H (Negative) Urine Blood Negative (Negative) Urine Nitrite Negative (Negative) Urine Bilirubin Negative (Negative) Urine Urobilinogen 2.0 (<2.0) mg/dL Ur Leukocyte Esterase Negative (Negative) Urine RBC 4 (0-5) /hpf Urine WBC 4 (0-5) /hpf Ur Squamous Epith Cells 24 H (0-4) /hpf Urine Bacteria Rare H (None) /hpf Hyaline Casts 1 (0-2) /lpf Urine Mucus Many H (None) /hpf Urine HCG, Qual Not Detected (Not Detectd) 05/21/24 05/21/24 Range/Units 08:49 08:49 WBC (3.8-10.6) k/uL RBC (3.80-5.40) m/uL Hgb (11.4-16.0) gm/dL Hct (34.0-46.0) % MCV (80.0-100.0) fL MCH (25.0-35.0) pg MCHC (31.0-37.0) g/dL RDW (11.5-15.5) % Plt Count (150-450) k/uL MPV Neutrophils % % Lymphocytes % % Monocytes % % Eosinophils % % Basophils % % Neutrophils # (1.3-7.7) k/uL Lymphocytes # (1.0-4.8) k/uL Monocytes # (0-1.0) k/uL Eosinophils # (0-0.7) k/uL Basophils # (0-0.2) k/uL Sodium 142 (137-145) mmol/L Potassium 3.8 (3.5-5.1) mmol/L Chloride 110 H (98-107) mmol/L Carbon Dioxide 26 (22-30) mmol/L Anion Gap 6 mmol/L BUN 15 (7-17) mg/dL Creatinine 0.64 (0.52-1.04) mg/dL Est GFR (CKD-EPI)AfAm >90 (>60 ml/min/1.73 sqM) Est GFR (CKD-EPI)NonAf >90 (>60 ml/min/1.73 sqM) Glucose 92 (74-99) mg/dL Plasma Lactic Acid Rey 0.8 (0.7-2.0) mmol/L Calcium 9.5 (8.4-10.2) mg/dL Total Bilirubin 0.9 (0.2-1.3) mg/dL AST 26 (14-36) U/L ALT 15 (4-34) U/L Alkaline Phosphatase 88 (38-126) U/L Total Protein 7.6 (6.3-8.2) g/dL Albumin 4.5 (3.5-5.0) g/dL Amylase 41 (30-110) U/L Lipase 110 (23-300) U/L Urine Color Urine Appearance (Clear) Urine pH (5.0-8.0) Ur Specific Gilmer (1.001-1.035) Urine Protein (Negative) Urine Glucose (UA) (Negative) Urine Ketones (Negative) Urine Blood (Negative) Urine Nitrite (Negative) Urine Bilirubin (Negative) Urine Urobilinogen (<2.0) mg/dL Ur Leukocyte Esterase (Negative) Urine RBC (0-5) /hpf Urine WBC (0-5) /hpf Ur Squamous Epith Cells (0-4) /hpf Urine Bacteria (None) /hpf Hyaline Casts (0-2) /lpf Urine Mucus (None) /hpf Urine HCG, Qual (Not Detectd) - Radiology Data Radiology results: report reviewed, image reviewed Disposition Clinical Impression: Abdominal pain, Exposure to STD Disposition: HOME SELF-CARE Condition: Stable Instructions (If sedation given, give patient instructions): Abdominal Pain (ED) Additional Instructions: Please follow-up with PCP. Return to the ER for any new or worsening symptoms. Prescriptions: metroNIDAZOLE [Flagyl] 500 mg PO BID #4 tab Doxycycline [Vibramycin] 100 mg PO BID #20 capsule Is patient prescribed a controlled substance at d/c from ED?: No Referrals: None,Stated [Primary Care Provider] - 1-2 days Forms: Area PCPs, [facility], Who Do I Call?, [facility], Community Resources Time of Disposition: 11:09
[2024-05-21 09:05] LABS: Basophils % (A) 1 %; Eosinophils % (A) 0 %; HCT 41.7 % (34.0-46.0); HGB 13.7 gm/dL (11.4-16.0); Lymphocytes # (A) 1.6 k/uL (1.0-4.8); Lymphocytes % (A) 20 %; MCHC 32.8 g/dL (31.0-37.0); MCV 85.1 fL (80.0-100.0); Mean Platelet Volume 9.3; Monocytes # (A) 0.6 k/uL (0-1.0); Monocytes % (A) 8 %; Neutrophils # (A) 5.3 k/uL (1.3-7.7); Neutrophils % (A) 69 %; Platelet Count 231 k/uL (150-450); RBC 4.89 m/uL (3.80-5.40); RDW 13.2 % (11.5-15.5); WBC 7.7 k/uL (3.8-10.6)
[2024-05-21] MEDS: KETOROLAC 15 MG/ML 1 ML VIAL IVP STA (09:13)
[2024-05-21 09:32] LABS: ALT 15 U/L (4-34); AST 26 U/L (14-36); African American GFR (CKD) >90 (>60 ml/min/1.73 sqM); Albumin 4.5 g/dL (3.5-5.0); Alkaline Phosphatase 88 U/L (38-126); Amylase 41 U/L (30-110); Anion Gap 6 mmol/L; Blood Urea Nitrogen 15 mg/dL (7-17); Calcium 9.5 mg/dL (8.4-10.2); Carbon Dioxide 26 mmol/L (22-30); Chloride 110 mmol/L (98-107); Glucose 92 mg/dL (74-99); Lipase 110 U/L (23-300); Non-African American GFR(CKD) >90 (>60 ml/min/1.73 sqM); Potassium 3.8 mmol/L (3.5-5.1); Sodium 142 mmol/L (137-145); Total Bilirubin 0.9 mg/dL (0.2-1.3); Total Protein 7.6 g/dL (6.3-8.2)
--- NOTE | 2024-05-21 09:57 | US ---
EXAMINATION TYPE: US gallbladder DATE OF EXAM: 05/21/2024 COMPARISON: 08/10/2023 CLINICAL INDICATION: Female, 23 years old with history of RUQ pain; generalized pain TECHNIQUE: Multiple sonographic images of the right upper quadrant are obtained. FINDINGS: EXAM MEASUREMENTS: Liver Length: 15.4 cm Gallbladder Wall: 0.1 cm CBD: 0.3 cm Right Kidney: 10.0 x 4.1 x 4.0 cm Pancreas: wnl Liver: wnl Gallbladder: No stones or wall thickening seen Evidence for sonographic Montiel's sign: Neg CBD: wnl Right Kidney: No hydronephrosis or masses seen IMPRESSION: No evidence for acute process.
[2024-05-21 10:17] LABS: Appearance,Urine Cloudy (Clear); Bacteria,Urine Rare /hpf; Bilirubin,Urine Negative (Negative); Blood,Urine Negative (Negative); Color,Urine Yellow; Glucose,Urine (UA) Negative (Negative); Hyaline Casts,Urine 1 /lpf (0-2); Ketones,Urine 2+ (Negative); Leukocyte Esterase,Urine Negative (Negative); Mucus,Urine Many /hpf; Nitrite,Urine Negative (Negative); Protein,Urine 1+ (Negative); RBC,Urine 4 /hpf (0-5); Specific Gravity,Urine 1.036 (1.001-1.035); Squamous Epithelial Cell,Urine 24 /hpf (0-4); WBC,Urine 4 /hpf (0-5)
[2024-05-21 10:58] VITALS: BP 122/76; TEMP 98.1
[2024-05-21] MEDS: cefTRIAXone IN SWFI 1,000 MG/10 ML SYRINGE IVP STA (11:12)
== END 2024-05-21 11:16 | disposition home or self-care (01) ==
LOC: EC 08:31
DX: Z20.2 Contact with and (suspected) exposure to infections with a predominantly sexual mode of transmission (principal); F17.290 Nicotine dependence, other tobacco product, uncomplicated
CPT/HCPCS: 36415; 80053; 82150; 83605; 83690; 85025; 81001; 81025; 87491; 87591; 76705; 99284; 96374; 96375; 96361; J0696; J1885

== ENCOUNTER 2024-05-23 20:17 | Emergency (ER) | payer OTHER ==
[2024-05-23 20:37] VITALS: BP 133/69; PULSE 103; RESP 20; TEMP 98
--- NOTE | 2024-05-23 21:44 | ED ---
General Adult HPI - General Chief complaint: Skin/Abscess/Foreign Body Stated complaint: Bruising,Cuts on Body Time Seen by Provider: 05/23/24 20:36 Source: patient, RN notes reviewed Mode of arrival: ambulatory Limitations: no limitations - History of Present Illness Initial comments: 23-year-old female presents to the emergency department for evaluation of rash between her legs. She states that she has been walking a lot recently and her legs have been rubbing together. She denies using anything to help with this at home. She denies any other symptoms. - Related Data Home Medications Medication Instructions Recorded Confirmed Doxycycline [Vibramycin] 100 mg PO DIRECTED 05/24/24 05/24/24 metroNIDAZOLE [Flagyl] 2,000 mg PO DIRECTED 05/24/24 05/24/24 Allergies Allergy/AdvReac Type Severity Reaction Status Date / Time No Known Allergies Allergy Verified 05/24/24 14:08 Review of Systems ROS Statement: Those systems with pertinent positive or pertinent negative responses have been documented in the HPI. ROS Other: All systems not noted in ROS Statement are negative. Past Medical History Past Medical History: Asthma Additional Past Medical History / Comment(s): ADHD History of Any Multi-Drug Resistant Organisms: None Reported Past Surgical History: No Surgical Hx Reported Past Anesthesia/Blood Transfusion Reactions: No Reported Reaction Past Psychological History: ADD/ADHD, Anxiety, Bipolar, Depression, Panic Disorder Smoking Status: Current every day smoker, Vaper Past Alcohol Use History: Rare Past Drug Use History: Marijuana - Past Family History Father History Unknown: Yes Mother History Unknown: Yes General Exam Limitations: no limitations General appearance: alert, in no apparent distress Head exam: Present: atraumatic, normocephalic, normal inspection Eye exam: Present: normal appearance, PERRL, EOMI. Absent: scleral icterus, conjunctival injection, periorbital swelling ENT exam: Present: normal exam, mucous membranes moist Neck exam: Present: normal inspection. Absent: tenderness, meningismus, lymphadenopathy Respiratory exam: Present: normal lung sounds bilaterally. Absent: respiratory distress, wheezes, rales, rhonchi, stridor Cardiovascular Exam: Present: regular rate, normal rhythm, normal heart sounds. Absent: systolic murmur, diastolic murmur, rubs, gallop, clicks GI/Abdominal exam: Present: soft, normal bowel sounds. Absent: distended, tenderness, guarding, rebound, rigid Extremities exam: Present: normal inspection, full ROM, normal capillary refill. Absent: tenderness, pedal edema, joint swelling, calf tenderness Neurological exam: Present: alert Psychiatric exam: Present: normal affect, normal mood Skin exam: Present: warm, dry, abrasion (friction abrasion to bilateral inner thighs). Absent: intact Course Vital Signs 05/23/24 20:29 Temperature 98.0 F Pulse Rate 103 H Respiratory 20 Rate Blood Pressure 133/69 O2 Sat by Pulse 95 Oximetry Medical Decision Making - Medical Decision Making Was pt. sent in by a medical professional or institution (, GABRIELA, SPLICER MACHINE OPERATOR, urgent care, hospital, or snf...) When possible be specific @ -No Did you speak to anyone other than the patient for history (EMS, parent, family, police, friend...)? What history was obtained from this source @ -No Did you review nursing and triage notes (agree or disagree)? Why? @ -Triage note reports patient is 6 months which is false Were old charts reviewed (outside hosp., previous admission, EMS record, old EKG, old radiological studies, urgent care reports/EKG's, snf records)? Report findings @ -No old charts were reviewed Differential Diagnosis (chest pain, altered mental status, abdominal pain women, abdominal pain men, vaginal bleeding, weakness, fever, dyspnea, syncope, headache, dizziness, GI bleed, back pain, seizure, CVA, palpatations, mental health, musculoskeletal)? @ -Skin abrasion, cellulitis, abscess, this list is not all inclusive EKG interpreted by me (3pts min.). @ -None X-rays interpreted by me (1pt min.). @ -None done CT interpreted by me (1pt min.). @ -None done U/S interpreted by me (1pt. min.). @ -None done What testing was considered but not performed or refused? (CT, X-rays, U/S, labs)? Why? @ -None What meds were considered but not given or refused? Why? @ -None Did you discuss the management of the patient with other professionals (professionals i.e. GABRIELA Myers, SPLICER MACHINE OPERATOR, lab, RT, psych nurse, social security specialist, passenger barge master, teacher, foreign service officer, director of casework)? Give summary @ -No Was smoking cessation discussed for >3mins.? @ -No Was critical care preformed (if so, how long)? @ -No Were there social determinants of health that impacted care today? How? (Homelessness, low income, unemployed, alcoholism, drug addiction, transportation, low edu. Level, literacy, decrease access to med. care, usp, re hab)? @ -No Was there de-escalation of care discussed even if they declined (Discuss DNR or withdrawal of care, Hospice)? DNR status @ -No What co-morbidities impacted this encounter? (DM, HTN, Smoking, COPD, CAD, Cancer, CVA, ARF, Chemo, Hep., AIDS, mental health diagnosis, sleep apnea, morbid obesity)? @ -None Was patient admitted / discharged? Hospital course, mention meds given and route, prescriptions, significant lab abnormalities, going to OR and other pertinent info. @ -Discharged. Patient presented to the emergency department for evaluation to the emergency department for evaluation of bilateral inner thigh abrasions from legs rubbing. Patient has friction rubs to bilateral inner thighs. She was provided emollient for this. Patient did make statement about wanting to go to [facility]. she denies suicidal and homicidal ideation. She was evaluated by EPS and cleared for discharge. Undiagnosed new problem with uncertain prognosis? @ -No Drug Therapy requiring intensive monitoring for toxicity (Heparin, Nitro, Insulin, Cardizem)? @ -No Were any procedures done? @ -No Diagnosis/symptom? @ -Leg abrasion Acute, or Chronic, or Acute on Chronic? @ -Acute Uncomplicated (without systemic symptoms) or Complicated (systemic symptoms)? @ -Uncomplicated Side effects of treatment? @ -No Exacerbation, Progression, or Severe Exacerbation? @ -No Poses a threat to life or bodily function? How? (Chest pain, [place], [place], pneumonia, PE, COPD, DKA, ARF, appy, cholecystitis, CVA, Diverticulitis, Homicidal, Suicidal, threat to staff... and all critical care pts) @ -No Disposition Clinical Impression: Thigh abrasion Disposition: HOME SELF-CARE Condition: Stable Instructions (If sedation given, give patient instructions): Abrasion (ED) Additional Instructions: Please utilize the aquaphor. Return to the emergency department for new or wor sening symptoms. Is patient prescribed a controlled substance at d/c from ED?: No Referrals: None,Stated [Primary Care Provider] - 1-2 days
[2024-05-23] MEDS: PETROLATUM, WHITE OINT 50 GM TUBE TOPICAL STA (21:53)
== END 2024-05-23 23:47 | disposition home or self-care (01) ==
LOC: EC 20:17
DX: S70.312A Abrasion, left thigh, initial encounter (principal); S70.311A Abrasion, right thigh, initial encounter; F17.290 Nicotine dependence, other tobacco product, uncomplicated; X58.XXXA Exposure to other specified factors, initial encounter; Y93.01 Activity, walking, marching and hiking
CPT/HCPCS: 82075; 99283

== ENCOUNTER 2024-05-24 12:27 | Inpatient (IN) | payer MEDICAID, OTHER ==
--- NOTE | 2024-05-24 13:13 | ED ---
General Adult HPI - General Chief complaint: Psychiatric Symptoms Stated complaint: Petitioned Time Seen by Provider: 05/24/24 12:40 Source: EMS Mode of arrival: EMS - History of Present Illness Initial comments: Dictation was produced using Apto dictation software. please excuse any grammatical, word or spelling errors. Chief Complaint: 23-year-old female with suicidal behavior History of Present Illness: Patient 23-year-old female she has known psychiatric issues along with autism. Patient was discovered by EMS and police she was naked and was going to jump into the water as a suicide attempt. Patient is a poor historian. She allegedly has a history of autism. She denies any complaints. The ROS documented in this emergency department record has been reviewed and confirmed by me. Those systems with pertinent positive or negative responses have been documented in the HPI. All other systems are other negative and/or noncontributory. - Related Data Home Medications Medication Instructions Recorded Confirmed Doxycycline [Vibramycin] 100 mg PO DIRECTED 05/24/24 05/24/24 metroNIDAZOLE [Flagyl] 2,000 mg PO DIRECTED 05/24/24 05/24/24 Allergies Allergy/AdvReac Type Severity Reaction Status Date / Time No Known Allergies Allergy Verified 05/24/24 14:08 Review of Systems ROS Statement: Those systems with pertinent positive or pertinent negative responses have been documented in the HPI. ROS Other: All systems not noted in ROS Statement are negative. Past Medical History Past Medical History: Asthma Additional Past Medical History / Comment(s): ADHD History of Any Multi-Drug Resistant Organisms: None Reported Past Surgical History: No Surgical Hx Reported Past Anesthesia/Blood Transfusion Reactions: No Reported Reaction Past Psychological History: ADD/ADHD, Anxiety, Bipolar, Depression, Panic Disorder Smoking Status: Current every day smoker, Vaper Past Alcohol Use History: Rare Past Drug Use History: Marijuana - Past Family History Father History Unknown: Yes Mother History Unknown: Yes General Exam - General Exam Comments Initial Comments: General: Well-appearing, nontoxic, no acute distress. Head: Normocephalic, atraumatic Eyes: PERRLA, EOMI ENT: Airway patent Chest: Nonlabored breathing Skin: No visual rash, normal skin tone Neuro: Alert and oriented 3 Musculoskeletal: No gross abnormalities Course Vital Signs 05/24/24 12:33 Temperature 98.2 F Pulse Rate 83 Respiratory 18 Rate Blood Pressure 113/66 O2 Sat by Pulse 99 Oximetry Medical Decision Making - Medical Decision Making Was pt. sent in by a medical professional or institution (, PA, LABOR AND DELIVERY NURSE, urgent care, hospital, or fdc...) When possible be specific @ -No Did you speak to anyone other than the patient for history (EMS, parent, family, police, friend...)? What history was obtained from this source @ -No Did you review nursing and triage notes (agree or disagree)? Why? @ -I reviewed and agree with nursing and triage notes Were old charts reviewed (outside hosp., previous admission, EMS record, old EKG, old radiological studies, urgent care reports/EKG's, fdc records)? Report findings @ -No old charts were reviewed Differential Diagnosis (chest pain, altered mental status, abdominal pain women, abdominal pain men, vaginal bleeding, musculoskeletal, weakness, fever, dyspnea, syncope, headache, dizziness, GI bleed, back pain, seizure, CVA, palpatations, mental health)? @ -Differential Mental Health: Depression, anxiety, bipolar, psychosis, schizophrenia, borderline personality, situational depression, adjustment disorder, behavioral disorder, brain tumor, malingering, substance abuse, encephalopathy, medication reaction, dementia, hypothyroidism, degenerative neurologic disorder, lupus.... This is not meant to be all-inclusive list EKG interpreted by me (3pts min.). @ -None done X-rays interpreted by me (1pt min.). @ -None done CT interpreted by me (1pt min.). @ -None done U/S interpreted by me (1pt. min.). @ -None done What testing was considered but not performed or refused? (CT, X-rays, U/S, labs)? Why? @ -None What meds were considered but not given or refused? Why? @ -None Was smoking cessation discussed for >3mins.? @ -No Were there social determinants of health that impacted care today? How? (Homelessness, low income, unemployed, alcoholism, drug addiction, transportation, low edu. Level, literacy, decrease access to med. care, usp, rehab)? @ -No Was there de-escalation of care discussed even if they declined (Discuss DNR or withdrawal of care, Hospice)? DNR status @ -No What co-morbidities impacted this encounter? (DM, HTN, Smoking, COPD, CAD, Cancer, CVA, ARF, Chemo, Hep., AIDS, mental health diagnosis, sleep apnea, morbid obesity)? @ -None Was patient admitted / discharged? Hospital course, mention meds given and route, prescriptions, significant lab abnormalities, going to OR and other pertinent info. @ -23-year-old female with psychiatric illness presents to the emergency department for suicidal behavior. Vital signs stable. Physical examination is benign patient is medically cleared for EPS evaluation Case discussed with EPS will admit patient to mental health unit. Did you discuss the management of the patient with other professionals (professionals i.e. , PA, LABOR AND DELIVERY NURSE, lab, RT, psych nurse, social research assistant, aerial lineman, teacher, fire information officer, case packer and sealer)? Give summary @ -No Was critical care preformed (if so, how long)? @ -No Undiagnosed new problem with uncertain prognosis? @ -No Drug Therapy requiring intensive monitoring for toxicity (Heparin, Nitro, Insulin, Cardizem)? @ -No Were any procedures done? @ -No Diagnosis/symptom? Acute, or Chronic, or Acute on Chronic? Uncomplicated (without systemic symptoms) or Complicated (systemic symptoms)? @ -Suicidal behavior Side effects of treatment? @ -No Exacerbation, Progression, or Severe Exacerbation? @ -No Poses a threat to life or bodily function? How? (Chest pain, [place], [place], pneumonia, PE, COPD, DKA, ARF, appy, cholecystitis, CVA, Diverticulitis, Homicidal, Suicidal, threat to staff... and all critical care pts) @ -yes Disposition Clinical Impression: Suicidal behavior Disposition: ADMITTED IP TO THIS HOSP Condition: Fair Referrals: None,Stated [Primary Care Provider] - 1-2 days
[2024-05-24 17:19] LABS: Appearance,Urine Cloudy (Clear); Bilirubin,Urine Negative (Negative); Blood,Urine Negative (Negative); Color,Urine Yellow; Glucose,Urine (UA) Negative (Negative); Leukocyte Esterase,Urine Negative (Negative); Mucus,Urine Many /hpf; Nitrite,Urine Negative (Negative); Protein,Urine 1+ (Negative); RBC,Urine <1 /hpf (0-5); Specific Gravity,Urine 1.028 (1.001-1.035); Squamous Epithelial Cell,Urine 1 /hpf (0-4); Urobilinogen,Urine <2.0 mg/dL (<2.0); WBC,Urine 2 /hpf (0-5)
[2024-05-24 18:05] LABS: Ketones,Urine 4+ (Negative)
[2024-05-24 19:07] LABS: Amphetamine Screen,Urine Detected (NotDetected); Barbiturate Screen,Urine Not Detected (NotDetected); Benzodiazepines Screen,Urine Not Detected (NotDetected); Cocaine Screen,Urine Not Detected (NotDetected); Methadone Screen, Urine Not Detected (NotDetected); Opiate Screen,Urine Not Detected (NotDetected); Oxycodone Screen, Urine Not Detected (NotDetected); Phencyclidine Screen,Urine Not Detected (NotDetected); Tricyclic Antidepressant,Urine Not Detected (NotDetected); Urn Cannabinoid Scrn Detected (NotDetected)
[2024-05-24] MEDS ORDERED: MAG HYDROX/AL HYDROX/SIMETH 355 ML BOTTLE PO PRN (23:08)
[2024-05-24] MEDS ORDERED: traZODone HCL 50 MG TAB PO PRN (23:08)
[2024-05-24] MEDS ORDERED: HALOPERIDOL LACTATE 5 MG/ML 1 ML VIAL IM PRN (23:08)
[2024-05-24] MEDS ORDERED: LORazepam 2 MG/ML INJ IM PRN (23:08)
[2024-05-25] MEDS: NICOTINE 14MG/24HR PATCH TRANSDERM SCH (08:11)
[2024-05-25] MEDS: LORazepam 1 MG TAB PO PRN (10:33)
[2024-05-25] MEDS: haloperidoL 5 MG TAB PO PRN (10:33)
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
[2024-05-25 12:33] LABS: Basophils % (A) 0 %; Eosinophils % (A) 0 %; HCT 41.2 % (34.0-46.0); HGB 13.7 gm/dL (11.4-16.0); Lymphocytes # (A) 1.6 k/uL (1.0-4.8); Lymphocytes % (A) 20 %; MCH 28.4 pg (25.0-35.0); MCHC 33.4 g/dL (31.0-37.0); Mean Platelet Volume 10.9; Monocytes # (A) 0.5 k/uL (0-1.0); Monocytes % (A) 6 %; Neutrophils # (A) 5.8 k/uL (1.3-7.7); Neutrophils % (A) 72 %; Platelet Count 267 k/uL (150-450); RBC 4.84 m/uL (3.80-5.40); RDW 13.3 % (11.5-15.5)
[2024-05-25 12:40] LABS: ALT 16 U/L (4-34); AST 28 U/L (14-36); African American GFR (CKD) >90 (>60 ml/min/1.73 sqM); Albumin 4.3 g/dL (3.5-5.0); Alkaline Phosphatase 85 U/L (38-126); Anion Gap 11 mmol/L; Bilirubin, Delta 0.4 mg/dL (0.0-0.2); Bilirubin,Unconjugated 0.3 mg/dL (0.0-1.1); Blood Urea Nitrogen 11 mg/dL (7-17); Calcium 9.5 mg/dL (8.4-10.2); Carbon Dioxide 20 mmol/L (22-30); Chloride 109 mmol/L (98-107); Glucose 82 mg/dL (74-99); Non-African American GFR(CKD) >90 (>60 ml/min/1.73 sqM); Potassium 3.7 mmol/L (3.5-5.1); Sodium 140 mmol/L (137-145); Total Bilirubin 0.7 mg/dL (0.2-1.3); Total Protein 7.1 g/dL (6.3-8.2)
[2024-05-25] MEDS: PRAZOSIN 1 MG CAP PO SCH (20:21)
[2024-05-25] MEDS: traZODone HCL 50 MG TAB PO SCH (20:22)
[2024-05-26] MEDS: SERTRALINE 50 MG TAB PO SCH (09:29)
[2024-05-26] MEDS: ARIPiprazole 10 MG TAB PO SCH (09:29)
--- NOTE | 2024-05-26 13:10 | P.PN ---
Progress Note - Text Progress Note Date: 05/26/24 Interval History: Patient was seen [wandering the hallways] and was directable and agreeable to s peak with advertising writer in the office. Initially the patient stated she did not want to talk, but then she came into the office and apologized for being cranky. THe patient came into the office and stated she don't know how to explain how she is feeling. SHe began laughing uncontrollably, then looked at the scribe, and stated, "She needs to keep her mind shut, I can her what she is saying in her head, and she better shut the fuck up". Patient became tearful, and said she does not care about anything. At this time patient endorses suicidal ideations, denies homicidal ideations, intent or plan. Patient denies visual hallucinations and denies any paranoia or delusions. she claims that she is hearing voices however did not say what it was saying to her. Patient denies any side effects from the medications and has been compliant with meds. MENTAL STATUS EXAM: General Appearance: Patient appears to be short stature, short hair. mildly overweight, stated age is alert, bizarre at times, evasive. Patient appears to have poor hygiene and grooming. Behavior: Patient is fairly somnolent today. Irritated, tearful. bizarre Speech: [place], soft tone. emotional Mood/Affect:patient mood is terrible, affect is congruent and labile. Suicidality/Homicidality: patient is endorsing suicidal ideations, denying homicidal ideations Perceptions: She is admitting to hearing voices, denying any visual yang ucinations. Though content/process: [place], poverty of content, bizarre content, loose associations. delusional. Memory and concentration: unable to assess Judgment and insight: poor/impulsive IMPRESSIONS: bipolar disorder with psychotic features PTSD Cannabis use disorder methamphetamine use disorder Nicotine dependence homelessness PLAN: -Patient is admitted under voluntary status to [facility] for stabilization of psychiatric symptoms and safety. -Medications : change Trazodone 50mg qhs prn for insomnia, minipress 1mg qhs for nightmares, abilify 10mg daily for mood stabilization/psychosis, zoloft 50mg daily for mood/anxiety add seroquel 100mg po qhs. -Ativan and Haldol PRN for agitation/aggression -NRT - nicotine patch -SW on board for discharge planning. Encourage patient to participate in groups to work on coping skills.
[2024-05-26] MEDS: QUEtiapine 50 MG TAB PO STA (13:14)
[2024-05-26] MEDS: QUEtiapine 100 MG TAB PO SCH (21:39)
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
--- NOTE | 2024-05-27 16:15 | P.CONS ---
History of Present Illness - Reason for Consult Consult date: 05/27/24 - History of Present Illness 23 year old F with no PMH presents to the ED for mental health concerns. [facility] has been consulted for medical management of this patient. CBC, CMP, A1c, Lipid panel, TSH, UA, UDS, COVID significant for Cl 109, bicarb 20, delta bilirubin 0.4, cloudy/1+ protein/4+ketones/many mucous seen on UA. Current vital signs BP 106/65, HR 99, T 98.3F, 95% on RA. Patient is quite emotional but denies any specific complaints. Smokes everyday. Occasional drinker. Patient refused a physical exam. Based on my assessment of this patient, this patient meets a moderate complexity level of care. Abnormal UA: Asymptomatic. No treatment. Polysubstance abuse: Advised to quit. Obesity: Structured weight loss program. CODE STATUS: FULL CODE DVT Prophylaxis: Early ambulation. GI Prophylaxis: I have reviewed the following workday financials consultant notes: Psyc note. I have reviewed the results of the following tests: As above. I have ordered the following tests: I have discussed the care of this patient with the following independent historian: I have independently interpreted the following test below: I have discussed the management of this patient with the following physician: I have seen and evaluated the patient today along side the resident. Past Medical History Past Medical History: Asthma Additional Past Medical History / Comment(s): ADHD History of Any Multi-Drug Resistant Organisms: None Reported Past Surgical History: No Surgical Hx Reported Past Anesthesia/Blood Transfusion Reactions: No Reported Reaction Smoking Status: Current every day smoker, Vaper - Past Family History Father History Unknown: Yes Mother History Unknown: Yes Medications and Allergies Home Medications Medication Instructions Recorded Confirmed Type Doxycycline [Vibramycin] 100 mg PO DIRECTED 05/24/24 05/24/24 History metroNIDAZOLE [Flagyl] 2,000 mg PO DIRECTED 05/24/24 05/24/24 History Allergies Allergy/AdvReac Type Severity Reaction Status Date / Time No Known Allergies Allergy Verified 05/24/24 14:08 Physical Exam Vitals: Vital Signs Temp Pulse Resp BP Pulse Ox 05/27/24 08:20 98.3 F 99 16 106/65 95 Results CBC & Chem 7: 05/25/24 10:58 05/25/24 10:58
[2024-05-27] MEDS: QUEtiapine 100 MG TAB PO SCH (21:00)
[2024-05-28] MEDS: ARIPiprazole 15 MG TAB PO SCH (09:46)
[2024-05-28] MEDS: SERTRALINE 50 MG TAB PO ONE (09:46)
--- NOTE | 2024-05-28 12:22 | P.PN ---
Progress Note - Text Progress Note Date: 05/28/24 Interval history: Patient was seen wandering the hallways and was directable and agreeable to speak with writer technical publications. Patient has disorganized speech and has somewhat elevated affect. She states that she is doing "better" in terms of her mood. However, she reports not having slept at all last night. Despite this, she states that she is feeling "great ". When asked about medications, patient replies stating that she would like "a job on the beach "and would like a sketch pad. Patient is agreeable with increasing Seroquel to improve her symptoms. At this time patient denies any suicidal or homicidal ideations intent or plan. Denies any Auditory or visual hallucinations. Patient denies any side effects from the medications and has been compliant with meds. Mental status exam: General Appearance: Patient appears to be stated age is alert, directable, and cooperative. Behavior: No agitated behavior. Patient is calm and directable Speech: Patient's speech is fluent and nonpressured. Mood/Affect: Mood is elevated, affect is congruent and broad Suicidality/Homicidality: Patient denies having any suicidal or homicidal ideation intent or plan. Perceptions: Patient denies any auditory or visual hallucinations. Though content/process: There is no evidence of any delusional thought content and thought process is linear and goal-directed. Memory and concentration: AOX3, grossly intact for the purposes of this session Judgment and insight: improving mildly Assessment/Plan: Continue with current diagnosis. Patient continues to meet criteria for inpatient psychiatric admission for symptom stabilization and safety. Patient will be maintained on current psychotropic medication regimen. Increase Seroquel to 300 mg qHS for mood stabilization. Monitor for medication compliance and for any psychotropic medication side effects. Will continue to monitor ongoing response to treatment. Encouraged participation in milieu.
[2024-05-28] MEDS: ACETAMINOPHEN TAB 325 MG TAB PO PRN (16:37)
[2024-05-28] MEDS: QUEtiapine 100 MG TAB PO SCH (21:51)
[2024-05-29] MEDS ORDERED: SERTRALINE 100 MG TAB PO SCH (09:00)
[2024-05-29] MEDS: SERTRALINE 50 MG TAB PO SCH (09:24)
[2024-05-29] MEDS: IBUPROFEN 600 MG TAB PO PRN (11:17)
--- NOTE | 2024-05-29 11:31 | P.PN ---
Progress Note - Text Progress Note Date: 05/29/24 Interval history: Patient was seen wandering the hallways and was directable and agreeable to speak with typewriter tester. She has a labile affect and fluctuates between being tearful and laughing. In witnessing another patient decompensate on the floor, patient states that agitation brings about bad memories of trauma for her. This provider did meditation and played music with patient to improve her anxiety. She states that she enjoys listening to music as a way of healing from anxiety and trauma. She states that her mood has been "irritated" today due to her calling these past memories. She continues to be somewhat disorganized in her speech and rambles about various topics. She states that sleep is improved last night. She is interested in going to rehab. However, she is concerned about what her housing situation might be upon discharge. She otherwise reports no other concerns. She endorses good appetite and energy levels during the daytime. At this time patient denies any suicidal or homicidal ideations intent or plan. Denies any Auditory or visual hallucinations. Patient denies any side effects from the medications and has been compliant with meds. Mental status exam: General Appearance: Patient appears to be stated age is alert, directable, and cooperative. Behavior: No agitated behavior. Patient is calm and directable Speech: Patient's speech is fluent and nonpressured. Mood/Affect: Mood is dysphoric, affect is labile Suicidality/Homicidality: Patient denies having any suicidal or homicidal ideation intent or plan. Perceptions: Patient denies any auditory or visual hallucinations. Though content/process: Tangential with negative themes Memory and concentration: AOX3, grossly intact for the purposes of this session Judgment and insight: improving mildly Assessment/Plan: Continue with current diagnosis. Patient continues to meet neema forbes for inpatient psychiatric admission for symptom stabilization and safety. Patient will be maintained on current psychotropic medication regimen. Might consider changing Abilify to Seroquel for further mood stabilization. Monitor for medication compliance and for any psychotropic medication side effects. Will continue to monitor ongoing response to treatment. Encouraged participation in milieu.
[2024-05-29] MEDS: traZODone HCL 50 MG TAB PO PRN (23:50)
--- NOTE | 2024-05-30 11:00 | P.PN ---
Progress Note - Text Progress Note Date: 05/30/24 Interval History: Patient was seen wandering the hallways and was directable and agreeable to sp azar with contract technical writer in the office. The patient stated that she is feeling a bit better today. Patient stated that she wants to go to rehab upon discharge. Senior Analyst Market Intelligence spoke with patient about receiving a RAMÍREZ, patient stated she would rather take the pills at this time. She stated she would like to rescind her AMA at this time, so she can do the screening for rehab. Patient starts laughing during the interview, stating she is thinking of [employer] lyrics in her head. She is focused on discharge, but stated she really wants rehab, so she can stay off drugs when she gets out. At this time patient denies suicidal ideations, denies homicidal ideations, intent or plan. Patient denies visual hallucinations and denies any paranoia or delusions. she is no longer endorsing AH, and denying VH. Patient denies any side effects from the medications and has been compliant with meds. MENTAL STATUS EXAM: General Appearance: Patient appears to be short stature, short hair. mildly overweight, stated age is alert, Patient appears to have improving hygiene and grooming. Behavior: Patient is fairly somnolent today. Focused on rehab and discharge Speech: [place], soft tone. Mood/Affect:patient mood is better, affect is congruent and constricted, mildly improving Suicidality/Homicidality: patient is endorsing suicidal ideations, denying homicidal ideations Perceptions: She is admitting to hearing voices, denying any visual hallucinations. Though content/process: mildly improving Memory and concentration: AOx4 Judgment and insight: chronically poor, mildly improving IMPRESSIONS: bipolar disorder with psychotic features PTSD Cannabis use disorder methamphetamine use disorder Nicotine dependence homelessness PLAN: -Patient is admitted under voluntary status to [facility]HU for stabilization of ps ychiatric symptoms and safety. Patient rescinded her AMA -Medications : Trazodone 50 mg qhs prn for insomnia, minipress 1mg qhs for nightmares, abilify 15mg daily for mood stabilization/psychosis, zoloft 50mg daily for mood/anxiety, seroquel 300mg po qhs for mood stabilization/sleep. -Ativan and Haldol PRN for agitation/aggression -NRT - nicotine patch -SW on board for discharge planning. Encourage patient to participate in groups to work on coping skills. Patient will call to get screened for rehab, SW to help with this today. patient is currently homeless.
[2024-05-31] MEDS: MAGNESIUM HYDROXIDE 2,400 MG/30 ML CUP PO PRN (09:27)
--- NOTE | 2024-05-31 10:58 | P.PN ---
Progress Note - Text Progress Note Date: 05/31/24 Interval History: Patient was seen wandering the hallways and was directable and agreeable to sp azar with production underwriter in the office. The patient stated that she is feeling better today. The patient claims to have called the intake at rehab yesterday, and she is put on the waiting list. It has been reported by nursing staff that patient got frustrated with the wait time on hold with rehab, and hung up the phone. International Logistics Manager asked patient why she required Haldol yesterday, she stated she does not know, and "they are giving me pills, just to give me pills". She states that she had a nightmare last night. She asked for a list of all the medications she is taking, production underwriter told her that she can go up to the nursing station and they can print it out for her. Patient remains fairly concrete, and bizarre. At this time patient denies suicidal ideations, denies homicidal ideations, intent or plan. Patient denies visual hallucinations and denies any paranoia or delusions. she is no longer endorsing AH, and denying VH. Patient denies any side effects from the medications and has been compliant with meds. MENTAL STATUS EXAM: General Appearance: Patient appears to be short stature, short hair. mildly overweight, stated age is alert, Patient appears to have improving hygiene and grooming. Behavior: Patient is fairly somnolent today. bizarre. improving mildly Speech: [place], soft tone. Mood/Affect:patient mood is better, affect is congruent and constricted, mildly improving Suicidality/Homicidality: patient is endorsing suicidal ideations, denying homicidal ideations Perceptions: She is admitting to hearing voices, denying any visual hallucinations. Though content/process: mildly improving Memory and concentration: AOx4 Judgment and insight: chronically poor, mildly improving IMPRESSIONS: bipolar disorder with psychotic features PTSD Cannabis use disorder methamphetamine use disorder Nicotine dependence homelessness PLAN: -Patient is admitted under voluntary status to [facility]HU for stabilization of psychiatric symptoms and safety. Patient rescinded her AMA -Medications : change Trazodone 50 mg qhs for insomnia, minipress 1mg qhs for nightmares, abilify 15mg daily for mood stabilization/psychosis, increase zoloft 100mg daily for mood/anxiety, seroquel 300mg po qhs for mood stabil ization/sleep. -Ativan and Haldol PRN for agitation/aggression -NRT - nicotine patch -SW on board for discharge planning. Encourage patient to participate in groups to work on coping skills. Patient will call to get screened for rehab, SW to help with this today. patient is currently homeless.
[2024-05-31] MEDS: traZODone HCL 50 MG TAB PO SCH (20:39)
[2024-06-01] MEDS: SERTRALINE 100 MG TAB PO SCH (08:45)
--- NOTE | 2024-06-01 08:50 | XR ---
EXAMINATION TYPE: XR hand complete RT DATE OF EXAM: 06/01/2024 8:14 AM CLINICAL INDICATION:Female, 23 years old with history of History of broken middle finger, current alma n; [facility] COMPARISON: None TECHNIQUE: XR hand complete RT Frontal, lateral and oblique views were obtained. FINDINGS: Normal alignment of the visualized joints. No acute osseous pathology is identified. No e vidence of soft tissue swelling. No significant degeneration IMPRESSION: No acute osseous pathology.
[2024-06-01] MEDS ORDERED: SENNOSIDES 8.6 MG TAB PO PRN (13:21)
--- NOTE | 2024-06-01 13:26 | P.PN ---
Progress Note - Text Progress Note Date: 06/01/24 Interval History: Patient was agreeable to be seen via telehealth in cross-coverage for Dr. Garcia. She reports her mood is "alright". She states she is having problems eating (states she is "gaining too much weight" and not eating enough), so we discussed a trial of metformin but she declines. She states she would like to start control since she is sexually active. Her hCG was negative on 05/24/24. She was advised to discuss with the medical doctor or her outpatient PCP to discuss her control options. She reports problems with constipation, last bowel movement was yesterday, is passing gas. She worries about being homeless and unemployed. She appears somatically preoccupied. She denies depressed mood, denies anxiety. At this time, patient denies suicidal ideation, denies homicidal ideation, intent or plan. Patient denies visual hallucinations and denies any paranoia or delusions. Patient denies any side effects from the medications and has been compliant with meds. MENTAL STATUS EXAM: General Appearance: Patient appears to be short stature, short hair. mildly overweight, stated age is alert, Patient appears to have improving hygiene and grooming. Behavior: Childlike, speaks with soft tone Speech: Soft tone. Mood/Affect: mood is "alright" affect is congruent and constricted, mildly improving Suicidality/Homicidality: patient is endorsing suicidal ideations, denying homicidal ideations Perceptions: denying any visual/auditory hallucinations. Though content/process: mildly improving Memory and concentration: AOx4 Judgment and insight: chronically poor, mildly improving IMPRESSIONS: Bipolar disorder with psychotic features PTSD Cannabis use disorder Methamphetamine use disorder Nicotine dependence Homelessness Borderline personality traits PLAN: -Patient is admitted under voluntary status to MHU for stabilization of psychiatric symptoms and safety. -Medications: Start Colace 100 mg nano for constipation and Senna 8.6 mg daily prn for constipation. Continue Trazodone 50 mg qhs for insomnia, Minipress 1mg qhs for nightmares, Abilify 15mg daily for mood stabilization/psychosis, Zoloft 100mg daily for mood/anxiety, Seroquel 300mg po qhs for mood stabilization/sleep. -Ativan and Haldol PRN for agitation/aggression -NRT - nicotine patch -SW on board for discharge planning. Encourage patient to participate in groups to work on coping skills.
[2024-06-01] MEDS: DOCUSATE 100 MG CAP PO SCH (14:57)
[2024-06-02 08:28] VITALS: BMI 33.6
--- NOTE | 2024-06-02 12:12 | P.PN ---
Progress Note - Text Progress Note Date: 06/02/24 Interval History: Patient was agreeable to be seen by this filing writer for an interview today. She st ates she is feeling a bit better, however, states that her mind has been racing, even with medication. She is apologizing for what she said the other day, but when asked what she is apologizing for, she changes the subject, and thinks this filing writer has been gone for a really long time, when in reality, this filing writer was only gone for a day. Patient states that she is mad at her mother for "fucking up her life". She endorses a fair appetite, and states she is sleeping ok at night. Patient did call the access line, and we are awaiting an intake date for rehab. At this time, patient denies suicidal ideation, denies homicidal ideation, intent or plan. Patient denies visual hallucinations and denies any paranoia or delusions. Patient denies any side effects from the medications and has been compliant with meds. MENTAL STATUS EXAM: General Appearance: Patient appears to be short stature, short hair. mildly overweight, stated age is alert, Patient appears to have improving hygiene and grooming. Behavior: Childlike, speaks with soft tone Speech: Soft tone. fluent Mood/Affect: mood is "alright" affect is congruent and constricted, mildly improving Suicidality/Homicidality: patient is denying suicidal ideations, denying homicidal ideations Perceptions: denying any visual/auditory hallucinations. Though content/process: mildly improving Memory and concentration: AOx4 Judgment and insight: chronically poor, mildly improving IMPRESSIONS: Bipolar disorder with psychotic features PTSD Cannabis use disorder Methamphetamine use disorder Nicotine dependence Homelessness Borderline personality traits PLAN: -Patient is admitted under voluntary status to [facility]HU for stabilization of psychiatric symptoms and safety. -Medications: Colace 100 mg nano for constipation, Senna 8.6 mg daily prn for constipation. increase Trazodone 100 mg qhs for insomnia, Minipress 1mg qhs for nightmares, Abilify 15mg daily for mood stabilization/psychosis, Zoloft 100mg daily for mood/anxiety, Seroquel 300mg po qhs for mood stabilization/sleep. patient is refusing RAMÍREZ at this time. -Ativan and Haldol PRN for agitation/aggression -NRT - nicotine patch -SW on board for discharge planning. Encourage patient to participate in groups to work on coping skills. Awaiting intake date for rehab, awaiting decision from [facility].
[2024-06-02] MEDS: traZODone HCL 100 MG TAB PO SCH (21:13)
[2024-06-03] MEDS: SERTRALINE 50 MG TAB PO SCH (07:54)
--- NOTE | 2024-06-03 11:12 | P.PN ---
Progress Note - Text Progress Note Date: 06/03/24 Interval History: Patient was see in group today, and agreeable to be seen by this teletypewriter operator for an interview today. She states she is feeling pretty good today. She stated that she is mourning today, because she states her boyfriend is going to soon because he has pancreas cancer. She endorses a fair appetite, and states she is sleeping good at night. Control Panel Assembler spoke with the patient about [facility], and how we are waiting for a decision from them. The unit support representative emailed them, and they should have a decision today. At this time, patient denies suicidal ideation, denies homicidal ideation, intent or plan. Patient denies visual hallucinations and denies any paranoia or delusions. Patient denies any side effects from the medications and has been compliant with meds. MENTAL STATUS EXAM: General Appearance: Patient appears to be short stature, short hair. mildly overweight, stated age is alert, Patient appears to have improving hygiene and grooming. Behavior: Childlike, speaks with soft tone Speech: Soft tone. fluent Mood/Affect: mood is "alright" affect is congruent and constricted, mildly improving Suicidality/Homicidality: patient is denying suicidal ideations, denying homicidal ideations Perceptions: denying any visual/auditory hallucinations. Though content/process: mildly improving Memory and concentration: AOx4 Judgment and insight: chronically poor, mildly improving IMPRESSIONS: Bipolar disorder with psychotic features PTSD Cannabis use disorder Methamphetamine use disorder Nicotine dependence Homelessness Borderline personality traits PLAN: -Patient is admitted under voluntary status to [facility]HU for stabilization of psychiatric symptoms and safety. -Medications: Colace 100 mg nano for constipation, Senna 8.6 mg daily prn for constipation. Trazodone 100 mg qhs for insomnia, Minipress 1mg qhs for nightmares, Abilify 15mg daily for mood stabilization/psychosis, Thursday, increase Zoloft 200mg daily for mood/anxiety, Seroquel 300mg po qhs for mood stabilization/sleep. patient is refusing RAMÍREZ at this time. -Ativan and Haldol PRN for agitation/aggression -NRT - nicotine patch - on board for discharge planning. Encourage patient to participate in groups to work on coping skills. Likely discharge Thursday to .
[2024-06-04] MEDS: SERTRALINE 50 MG TAB PO SCH (08:22)
--- NOTE | 2024-06-04 08:46 | P.PN ---
Subjective Progress Note Date: 06/04/24 Principal diagnosis: bipolar 1 with psychotic features subjective: The patient says that in the past she's taken Minipress and made the nightmares worse and she had some sort of cardiac issues and she thinks it made her blood pressure go up. However she tends to change her story every 2 minutes is hard to assess what is really going on. She was clear that when she takes the morning medicine he causes her to have racing thoughts. MENTAL STATUS EXAM: eye contact is somewhat sporadic General Appearance: Patient appears to be short stature, short hair. mildly overweight, stated age is alert, Patient appears to have improving hygiene and grooming. Behavior: Childlike, speaks with soft tone she felt it important to tell me that she was not in fact 14 although that's when she began to have psychotic symptoms Speech: Soft tone. fluent Mood/Affect: mood is "alright" affect is congruent and constricted, mildly improving Suicidality/Homicidality: patient is denying suicidal ideations, denying homicidal ideations Perceptions: she says she still hears voices at times Though content/process: mildly improving Memory and concentration: AOx4 Judgment and insight: chronically poor, mildly improving IMPRESSIONS: Bipolar disorder with psychotic features PTSD Cannabis use disorder Methamphetamine use disorder Nicotine dependence Homelessness Borderline personality traits PLAN: -Patient is admitted under voluntary status to MHU for stabilization of psychiatric symptoms and safety. -Medications: Colace 100 mg nano for constipation, Senna 8.6 mg daily prn for constipation. Trazodone 100 mg qhs for insomnia, Minipress 1mg qhs for nightmares, we might increase the Minipress because she is still having nightmares by think those could be from the sertralinewe seems to cause racing thoughts, Abilify 15mg daily for mood stabilization/psychosis, Thursday, discontinue Zoloft, Seroquel 300mg po qhs for mood stabilization/sleep. patient is refusing RAMÍREZ at this time.she wanted to stop the Abilify and the Seroquel and I assured her she really needsthose and that they will help both with the nightmares and the racing thoughts and mood swings -Ativan and Haldol PRN for agitation/aggression -NRT - nicotine patch -SW on board for discharge planning. Encourage patient to participate in groups to work on coping skills. Likely discharge Thursday to [facility]. Objective - Vital Signs Vital signs: Vital Signs Temp 98.7 F 06/03/24 06:00 Pulse 111 H 06/03/24 06:00 Resp 20 06/03/24 06:00 BP 109/75 06/03/24 06:00 Pulse Ox 99 06/03/24 06:00 FiO2 - Labs CBC & Chem 7: 05/25/24 10:58 05/25/24 10:58
[2024-06-05 07:10] VITALS: BP 101/62; PULSE 97; RESP 16; TEMP 98.1
[2024-06-05] MEDS: SERTRALINE 100 MG TAB PO SCH (07:52)
== END 2024-06-06 10:37 | disposition home or self-care (01) | DRG 753 ==
LOC: EC 12:27 → 3MHU 22:45
PROVIDERS: ADMIT Psychiatry & Neurology Psychiatry; ATTEND Psychiatry & Neurology Psychiatry
DX: F31.9 Bipolar disorder, unspecified (principal); F12.10 Cannabis abuse, uncomplicated; F15.10 Other stimulant abuse, uncomplicated; F41.0 Panic disorder [episodic paroxysmal anxiety]; F43.10 Post-traumatic stress disorder, unspecified; F60.3 Borderline personality disorder; F17.210 Nicotine dependence, cigarettes, uncomplicated; F84.0 Autistic disorder; J45.909 Unspecified asthma, uncomplicated; F90.9 Attention-deficit hyperactivity disorder, unspecified type; R45.851 Suicidal ideations; Z91.52 Personal history of nonsuicidal self-harm; K59.00 Constipation, unspecified; F20.9 Schizophrenia, unspecified; E66.9 Obesity, unspecified; Z56.0 Unemployment, unspecified; Z68.34 Body mass index [BMI] 34.0-34.9, adult; Z59.00 Homelessness unspecified; Z71.51 Drug abuse counseling and surveillance of drug abuser; Z71.6 Tobacco abuse counseling
CPT/HCPCS: 80053; 80306; 81001; 81025; 82075; 82248; 83036; 84443; 85025; 87635; 99285

== ENCOUNTER 2024-07-01 16:17 | Inpatient (IN) | payer MEDICAID, OTHER ==
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
[2024-07-01 17:25] LABS: Basophils % (A) 0 %; Eosinophils % (A) 0 %; HCT 39.6 % (34.0-46.0); Lymphocytes # (A) 1.6 k/uL (1.0-4.8); Lymphocytes % (A) 14 %; MCHC 32.9 g/dL (31.0-37.0); MCV 85.1 fL (80.0-100.0); Mean Platelet Volume 8.6; Monocytes # (A) 0.5 k/uL (0-1.0); Monocytes % (A) 5 %; Neutrophils # (A) 8.9 k/uL (1.3-7.7); Neutrophils % (A) 80 %; Platelet Count 276 k/uL (150-450); RBC 4.66 m/uL (3.80-5.40); RDW 13.7 % (11.5-15.5); WBC 11.2 k/uL (3.8-10.6)
[2024-07-01 17:31] LABS: Appearance,Urine Cloudy (Clear); Bilirubin,Urine Negative (Negative); Blood,Urine Negative (Negative); Color,Urine Yellow; Glucose,Urine (UA) Negative (Negative); Ketones,Urine 1+ (Negative); Leukocyte Esterase,Urine Negative (Negative); Mucus,Urine Many /hpf; Nitrite,Urine Negative (Negative); PH, Urine 6.5 (5.0-8.0); Protein,Urine Trace (Negative); RBC,Urine <1 /hpf (0-5); Specific Gravity,Urine 1.033 (1.001-1.035); Squamous Epithelial Cell,Urine 7 /hpf (0-4); WBC,Urine 1 /hpf (0-5)
[2024-07-01 17:48] LABS: ALT 15 U/L (4-34); AST 25 U/L (14-36); African American GFR (CKD) >90 (>60 ml/min/1.73 sqM); Albumin 4.3 g/dL (3.5-5.0); Alkaline Phosphatase 76 U/L (38-126); Anion Gap 4 mmol/L; Blood Urea Nitrogen 16 mg/dL (7-17); Calcium 9.6 mg/dL (8.4-10.2); Carbon Dioxide 28 mmol/L (22-30); Chloride 108 mmol/L (98-107); Glucose 81 mg/dL (74-99); Lipase 81 U/L (23-300); Non-African American GFR(CKD) >90 (>60 ml/min/1.73 sqM); Potassium 4.3 mmol/L (3.5-5.1); Sodium 140 mmol/L (137-145); Total Bilirubin 0.4 mg/dL (0.2-1.3); Total Protein 7.1 g/dL (6.3-8.2)
[2024-07-01] MEDS: ONDANSETRON 4 MG/2 ML VIAL IVP STA (18:58)
[2024-07-01] MEDS: SODIUM CHLORIDE 0.9% 1,000 ML IV STA (18:58)
[2024-07-01 19:47] LABS: Urn Cannabinoid Scrn Detected (NotDetected)
[2024-07-01 19:48] LABS: Amphetamine Screen,Urine Not Detected (NotDetected); Barbiturate Screen,Urine Not Detected (NotDetected); Benzodiazepines Screen,Urine Not Detected (NotDetected); Cocaine Screen,Urine Not Detected (NotDetected); Methadone Screen, Urine Not Detected (NotDetected); Opiate Screen,Urine Not Detected (NotDetected); Oxycodone Screen, Urine Not Detected (NotDetected); Phencyclidine Screen,Urine Not Detected (NotDetected); Tricyclic Antidepressant,Urine Not Detected (NotDetected)
[2024-07-02] MEDS ORDERED: LORazepam 2 MG/ML INJ IM PRN (00:47)
[2024-07-02] MEDS ORDERED: HALOPERIDOL LACTATE 5 MG/ML 1 ML VIAL IM PRN (00:47)
--- NOTE | 2024-07-02 03:18 | P.PN ---
Progress Note - Text Progress Note Date: 07/02/24 Informed by the [facility] RN regarding the new consult. Further informed by the RN that the patient is currently very psychotic and aggressive and is inappropriate for evaluation.
[2024-07-02] MEDS ORDERED: MAG HYDROX/AL HYDROX/SIMETH 355 ML BOTTLE PO PRN (08:00)
[2024-07-02] MEDS: NICOTINE 14MG/24HR PATCH TRANSDERM SCH (09:31)
[2024-07-02] MEDS: LORazepam 1 MG TAB PO PRN (09:33)
[2024-07-02] MEDS: IBUPROFEN 600 MG TAB PO PRN (14:11)
[2024-07-02] MEDS ORDERED: traZODone HCL 50 MG TAB PO PRN (17:11)
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
[2024-07-02] MEDS ORDERED: traZODone HCL 50 MG TAB PO SCH (21:00)
[2024-07-02] MEDS: ARIPiprazole 10 MG TAB PO SCH (21:47)
[2024-07-02] MEDS: PRAZOSIN 1 MG CAP PO SCH (21:47)
[2024-07-03] MEDS: haloperidoL 5 MG TAB PO PRN (00:27)
[2024-07-03] MEDS: ACETAMINOPHEN TAB 325 MG TAB PO PRN (08:15)
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
[2024-07-03] MEDS: SERTRALINE 50 MG TAB PO SCH (21:25)
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
[2024-07-05] MEDS: ARIPiprazole 15 MG TAB PO SCH (08:29)
--- NOTE | 2024-07-05 12:20 | P.PN ---
Progress Note - Text Progress Note Date: 07/05/24 Interval history: Patient was in the hallway, and agreeable to speak with the process description writer in the off ice. She states that she is feeling a bit better today, however, she is endorsing some paranoia today. She claims this is from her PTSD. She is no longer endorsing SI or AH today. [employer] spoke to patient about receiving a RAMÍREZ of Abilify, patient agreeable. She claims to be sleeping well at night, and that the nightmares are improving. She states her appetite is good. She is not endorsing HI or VH. She has been compliant with meds, and does not complain of side effects. Mental status exam: General Appearance: Patient appears to be younger than stated age. Hair in rachna. She is alert, directable, and cooperative. Behavior: No agitated behavior. Patient is calm and directable Speech: Patient's speech is fluent and nonpressured. Mood/Affect: Mood is improving mildly, affect is congruent though less constricted than yesterday. improving Suicidality/Homicidality: Patient denies having any suicidal or homicidal ideation intent or plan. Perceptions: Patient denies any auditory or visual hallucinations. Though content/process: There is ongoing evidence of some delusional thought content and thought process is tangential and somewhat disorganized. improving mildly Memory and concentration: AOX3, grossly intact for the purposes of this session Judgment and insight: chronically poor Impressions: Bipolar disorder with psychotic features PTSD Cannabis use disorder Nicotine dependence Assessment/Plan: -Patient is admitted under voluntary status to MHU for stabilization of psychiatric symptoms and safety. Patient has signed adult voluntary form or medication consent at this time though has been intermittently taking medication. -Medications : - Trazodone 50 mg at bedtime for sleep - Prazosin 1 mg at bedtime for nightmares - Abilify 15mg at bedtime for mood stabilization Transition onto Abilify Maintenna 400mg IM tomorrow 07/06, Next dose in 1 month, 07/04 - Zoloft 50 mg PO qhs for mood/anxiety -Ativan and Haldol PRN for agitation/aggression -NRT - nicotine patch -SW will be on board for discharge planning. Encourage patient to participate in groups to work on coping skills. hopeful for discharge vs thursday.
[2024-07-05] MEDS: NICOTINE GUM (POLACRILEX) 2 MG GUM BUCCAL PRN (13:29)
--- NOTE | 2024-07-05 17:21 | P.HPMEDMHU ---
History of Present Illness H&P Date: 07/05/24 Patient is a 23-year-old female with past medical history of ADHD, PTSD, bipolar disorder who is admitted to the psychiatric unit. Medicine was consulted for H&P. Patient states that she does smoke marijuana. She states that she uses it because she has PTSD. She states that multiple family members have cancer and this is what causes her to have PTSD. Patient also states that she smokes cigarettes and she is trying to quit. ROS: 10 ROS reviewed and are negative except as noted in HPI Physical exam General: [Alert and oriented, well nourished, no acute distress]. Eye: [PERRL, EOMI, normal conjunctiva]. HENT: [Normocephalic, clear tympanic membranes, normal hearing, moist oral mucosa, no scleral icterus, no sinus tenderness]. Neck: [Supple, non-tender, no carotid bruits, no JVD, no lymphadenopathy]. Lungs: [Clear to auscultation and percussion, non-labored respiration]. Heart: [Normal rate, regular rhythm, no murmur, gallop or edema]. Abdomen: [Soft, non-tender, non-distended, normal bowel sounds, no masses]. Musculoskeletal: [Normal range of motion and strength, no tenderness or swelling]. Skin: [Skin is warm, dry and pink, no rashes or lesions]. Neurologic: [Awake, alert, and oriented X3, CN II-XII intact]. Psychiatric: [Cooperative, appropriate mood and affect]. Assessment and plan Tobacco abuse Nicotine gum as needed ordered as well as nicotine patch Psychiatric disorder As per psychiatry management Please do not hesitate to call us on physicians for any questions or concerns Past Medical History Past Medical History: Asthma Additional Past Medical History / Comment(s): ADHD History of Any Multi-Drug Resistant Organisms: None Reported Past Surgical History: No Surgical Hx Reported Past Anesthesia/Blood Transfusion Reactions: No Reported Reaction Past Psychological History: ADD/ADHD, Anxiety, Bipolar, Depression, Panic Disorder Smoking Status: Unknown if ever smoked Past Alcohol Use History: Occasional Past Drug Use History: Cocaine, Marijuana, Methamphetamine - Past Family History Father History Unknown: Yes Mother History Unknown: Yes Medications and Allergies Home Medications Medication Instructions Recorded Confirmed Type risperiDONE microspheres 25 mg IM Q14D 07/01/24 07/01/24 History [RisperDAL CONSTA] Allergies Allergy/AdvReac Type Severity Reaction Status Date / Time No Known Allergies Allergy Verified 07/01/24 17:34 Physical Exam Osteopathic Statement: *. No significant issues noted on an osteopathic structural exam other than those noted in the History and Physical/Consult. Vitals: Vital Signs Temp Pulse Resp BP Pulse Ox 07/05/24 06:26 97.9 F 86 14 105/68 99 Cranial Nerve Examination - Cranial Nerves Cranial Nerve I- Olfactory: Intact Cranial Nerve II- Optic: Intact Cranial Nerve III- Oculomotor: Intact Cranial Nerve IV- Trochlear: Intact Cranial Nerve V- Trigeminal: Intact Cranial Nerve - Abducens: Intact Cranial Nerve VII- Facial: Intact Cranial Nerve VIII- Auditory: Intact Cranial Nerve IX- Glossopharyngeal: Intact Cranial Nerve X- Vagus: Intact Cranial Nerve XI- Accessory: Intact Cranial Nerve XII- Hypoglossal: Intact Results CBC & Chem 7: 07/01/24 17:02 07/01/24 17:02 Thrombosis Risk Factor Assmnt - Choose All That Apply Any of the Below Risk Factors Present?: Yes Each Factor Represents 1 point: Obesity (BMI >25) Other Risk Factors: No Other congenital or acquired thrombophilia - If yes, enter type in comment: No Thrombosis Risk Factor Assessment Total Risk Factor Score: 1 Thrombosis Risk Factor Assessment Level: Low Risk
[2024-07-05] MEDS: MAGNESIUM HYDROXIDE 2,400 MG/30 ML CUP PO PRN (19:06)
[2024-07-06] MEDS: ARIPiprazole IM SYRINGE 400 MG (NO CHARGE) PHARMACY STOCK IM ONE (08:20)
--- NOTE | 2024-07-06 11:21 | P.PN ---
Progress Note - Text Progress Note Date: 07/06/24 Interval history: Patient was in the hallway, and agreeable to speak with the technical document writer in the off ice. She states that she is feeling pretty good today. She received her RAMÍREZ yesterday, and is not experiencing any side effects. She is focused on discharge, and gets a little upset when she learns she will not be discharged today. She claims to be sleeping well at night. She states her appetite is good. She is not endorsing HI/SI or VH/AH. She has been compliant with meds, and does not complain of side effects. Mental status exam: General Appearance: Patient appears to be younger than stated age. Hair in rachna. She is alert, directable, and cooperative. Behavior: No agitated behavior. Patient is calm and directable, however gets mildly upset when she does not get discharged. Speech: Patient's speech is fluent and nonpressured. Mood/Affect: Mood is improving mildly, affect is congruent though less constricted than yesterday. improving Suicidality/Homicidality: Patient denies having any suicidal or homicidal ideation intent or plan. Perceptions: Patient denies any auditory or visual hallucinations. Though content/process: There is no evidence of delusional thought content and thought process is improving mildly Memory and concentration: AOX3, grossly intact for the purposes of this session Judgment and insight: chronically poor, improving mildly Impressions: Bipolar disorder with psychotic features PTSD Cannabis use disorder Nicotine dependence Assessment/Plan: -Patient is admitted under voluntary status to MHU for stabilization of psychiatric symptoms and safety. Patient has signed adult voluntary form or medication consent at this time though has been intermittently taking medication. -Medications : - Trazodone 50 mg at bedtime for sleep - Prazosin 1 mg at bedtime for nightmares - Abilify 15mg at bedtime for mood stabilization, Abilify Maintenna 400mg IM received on 07/06, Next dose in 1 month, 08/03 - Zoloft 50 mg PO qhs for mood/anxiety -Ativan and Haldol PRN for agitation/aggression -NRT - nicotine patch -SW will be on board for discharge planning. Encourage patient to participate in groups to work on coping skills. hopeful for discharge .
[2024-07-07 07:08] VITALS: BP 117/79; PULSE 72; RESP 16; TEMP 97.5
--- NOTE | 2024-07-07 10:31 | P.DS ---
Providers Date of admission: 07/02/24 00:43 Expected date of discharge: 07/07/24 Attending physician: Shayne Garcia MD Consults: 07/02/24 00:47 Consult Physician Routine Consulting Provider: Anastacia Herrera Consult Reason/Comments: For H & P for Medical Follow Up Do you want consulting provider notified?: Yes Primary care physician: Stated None - Discharge Diagnosis(es) (1) Bipolar disorder with psychotic features Current Visit: Yes Status: Acute Priority: High (2) PTSD (post-traumatic stress disorder) Current Visit: No Status: Acute Priority: Medium (3) Cannabis use disorder Current Visit: No Status: Acute Priority: Medium (4) Nicotine dependence Current Visit: No Status: Acute Priority: Low Hospital Course: Admission HPI: Admission note was completed by Dr Ontiveros "Nicole Quiñones is a 23 year old woman with a history of ADHD, PTSD, and bipolar disorder who presented to the ER with nausea and abdominal pain yesterday. She was subsequently evaluated psychiatric ally due to concern for agitation, irritability, and paranoia and was admitted. Ms. Quiñones was seen at the bedside today, she woke briefly to engage. When asked about what precipitated her admission she stated "everything is getting worse". She describes "not feeling hard" by family or friends and has recently become homeless again secondary to being kicked out of the residence that she shared with her partner. She endorses having been homeless "a lot" and often feels misunderstood by her family members who thinks she has not had as much difficulty as she has. She describes her mood as "high and low" and at times does feel sad and down. When asked more about the paranoia and anxiety she has been experiencing she did not elaborate. She endorses having nightmares on a frequent basis" they nightmares" which she relates to her history of trauma. She describes hearing mumbling voices that sometimes "echo" her thoughts and other times convey "anger". These voices have at times told her to kill herself or to overdose she has had prior suicide attempts. She denies any visual hallucinations. She endorses ongoing suicidal ideation and says she is "trying to avoid those thoughts," but "I keep having them". She does report decreased sleep and stable energy and concentration. Patient also symptom specific history was difficult to elucidate due to her intermittent irritability and feeling guarded." Hospital course: Upon admission to the unit patient was directable and agreeable to commence treatment and signed adult voluntary form. Patient got along well with other patients on the unit and followed unit protocol. Patient was compliant with the medications and denied any side effects throughout hospital course. Patient was started on trazodone 50 mg nightly as needed for sleep, prazosin 1 mg nightly for nightmares, Abilify p.o 15 mg nightly for mood stabilization. Patient was agreeable to receive Abilify Maintena 4 mg IM received on 07/06, next dose will be due in 1 month on 08/03. Patient spoke of her stressors and engaged in therapy both group and individual. Patient was also seen by medical team for history and physical exam. Throughout the course of the hospitalization patient gradually improved with regards to mood, anxiety, mood lability, sleep and returned back to their baseline level of functioning. On the day of discharge patient denied any suicidal or homicidal ideations intent or plan denied any auditory or visual hallucinations. Patient endorsed wanting to live for her health and her future. The patient denied any access to guns or weapons. [place] ent denied any paranoia and did not endorse any delusions. Patient does have a significant history of substance abuse and was counseled on abstaining from all substances including alcohol and marijuana. Patient was also counseled on the medications and need for regular compliance and was encouraged to follow-up with their outpatient appointment for mental health and also for primary care. Patient currently lives with her boyfriend, she is connected with the ACT team and [facility] for close monitoring. Mental status exam: General Appearance: Patient appears to be mildly overweight, stated age is alert, pleasant, and cooperative. Patient is in no acute distress and has improved hygiene and grooming Behavior: Patient is calmly seated without any agitated behavior. Speech: Patient's speech is fluent and nonpressured. Mood/Affect: Patient reports their mood is "good", affect is congruent Suicidality/Homicidality: Patient denies having any suicidal or homicidal ideation intent or plan. Perceptions: Patient denies any auditory or visual hallucinations. Though content/process: There is no evidence of any delusional thought content and thought process is linear and goal-directed. More future oriented Memory and concentration: AOX3, grossly intact for the purposes of this session. Can spell "WORLD" backwards correctly. Judgment and insight: chronically limited, improved with guarded prognosis Impression: Bipolar disorder with psychotic features PTSD Cannabis use disorder Nicotine dependence Plan: -Continue with discharge today as patient has improved and stabilized psychiatri rolando and is not currently an imminent threat to herself and/or others. Patient will remain at chronically elevated risk for harm to self and/or others due to her impulsivity and poor judgment. -Continue medications: Prazosin 1 mg nightly for nightmares, Abilify 15 mg p.o. nightly for mood stabilization, will continue for 13 more days then discontinue. Patient was given Abilify Maintena 400 mg IM on 07/06, next dose of 400 mg IM is due in 1 month on 08/03. -Patient was counseled on the need for medication compliance and appropriate follow-up at mental health and also primary care for medical issues. Patient verbalized understanding and agreed. -Social work to help coordinate patient's discharge today, she is closely monitored by [facility] and ACT team. Social work also to arrange for patients follow up appointments with [facility] for psychiatric care along with follow up with primary care provider. -Patient counseled on abstaining from recreational drugs and marijuana and alcohol. Was informed/educated on the adverse effects on their physical and mental health. Patient verbally agreed and understood. Patient was offered substance abuse treatment however declined at this time. -Patient was instructed to return to the hospital or seek immediate medical care if their psychiatric or medical symptoms do worsen or reoccur. Allergies Allergy/AdvReac Type Severity Reaction Status Date / Time No Known Allergies Allergy Verified 07/01/24 17:34 Laboratory Results WBC 11.2 k/uL (3.8-10.6) H 07/01/24 17:02 RBC 4.66 m/uL (3.80-5.40) 07/01/24 17:02 Hgb 13.0 gm/dL (11.4-16.0) 07/01/24 17:02 Hct 39.6 % (34.0-46.0) 07/01/24 17: MCV 85.1 fL (80.0-100.0) 07/01/24 17:02 MCH 28.0 pg (25.0-35.0) 07/01/24 17:02 MCHC 32.9 g/dL (31.0-37.0) 07/01/24 17:02 RDW 13.7 % (11.5-15.5) 07/01/24 17:02 Plt Count 276 k/uL (150-450) 07/01/24 17:02 MPV 8.6 07/01/24 17:02 Neutrophils % 80 % 07/01/24 17:02 Lymphocytes % 14 % 07/01/24 17:02 Monocytes % 5 % 07/01/24 17:02 Eosinophils % 0 % 07/01/24 17:02 Basophils % 0 % 07/01/24 17:02 Neutrophils # 8.9 k/uL (1.3-7.7) H 07/01/24 17:02 Lymphocytes # 1.6 k/uL (1.0-4.8) 07/01/24 17:02 Monocytes # 0.5 k/uL (0-1.0) 07/01/24 17:02 Eosinophils # 0.0 k/uL (0-0.7) 07/01/24 17:02 Basophils # 0.0 k/uL (0-0.2) 07/01/24 17:02 Sodium 140 mmol/L (137-145) 07/01/24 17:02 Potassium 4.3 mmol/L (3.5-5.1) 07/01/24 17:02 Chloride 108 mmol/L (98-107) H 07/01/24 17:02 Carbon Dioxide 28 mmol/L (22-30) 07/01/24 17:02 Anion Gap 4 mmol/L 07/01/24 17:02 BUN 16 mg/dL (7-17) 07/01/24 17:02 Creatinine 0.67 mg/dL (0.52-1.04) 07/01/24 17:02 Est GFR (CKD-EPI)AfAm >90 (>60 ml/min/1.73 sqM) 07/01/24 17:02 Est GFR (CKD-EPI)NonAf >90 (>60 ml/min/1.73 sqM) 07/01/24 17:02 Glucose 81 mg/dL (74-99) 07/01/24 17:02 Calcium 9.6 mg/dL (8.4-10.2) 07/01/24 17:02 Total Bilirubin 0.4 mg/dL (0.2-1.3) 07/01/24 17:02 AST 25 U/L (14-36) 07/01/24 17:02 ALT 15 U/L (4-34) 07/01/24 17:02 Alkaline Phosphatase 76 U/L (38-126) 07/01/24 17:02 Total Protein 7.1 g/dL (6.3-8.2) 07/01/24 17:02 Albumin 4.3 g/dL (3.5-5.0) 07/01/24 17:02 Lipase 81 U/L (23-300) 07/01/24 17:02 Urine Color Yellow 07/01/24 17:02 Urine Appearance Cloudy (Clear) H 07/01/24 17:02 Urine pH 6.5 (5.0-8.0) 07/01/24 17:02 Ur Specific [place] 1.033 (1.001-1.035) 07/01/24 17:02 Urine Protein Trace (Negative) H 07/01/24 17:02 Urine Glucose (UA) Negative (Negative) 07/01/24 17:02 Urine Ketones 1+ (Negative) H 07/01/24 17:02 Urine Blood Negative (Negative) 07/01/24 17:02 Urine Nitrite Negative (Negative) 07/01/24 17:02 Urine Bilirubin Negative (Negative) 07/01/24 17:02 Urine Urobilinogen 2.0 mg/dL (<2.0) 07/01/24 17:02 Ur Leukocyte Esterase Negative (Negative) 07/01/24 17:02 Urine RBC <1 /hpf (0-5) 07/01/24 17:02 Urine WBC 1 /hpf (0-5) 07/01/24 17:02 Ur Squamous Epith Cells 7 /hpf (0-4) H 07/01/24 17:02 Urine Mucus Many /hpf (None) H 07/01/24 17:02 Urine HCG, Qual Not Detected (Not Detectd) 07/01/24 17:02 Urine Opiates Screen Not Detected (NotDetected) 07/01/24 17:02 Ur Oxycodone Screen Not Detected (NotDetected) 07/01/24 17:02 Urine Methadone Screen Not Detected (NotDetected) 07/01/24 17:02 Ur Barbiturates Screen Not Detected (NotDetected) 07/01/24 17:02 U Tricyclic Antidepress Not Detected (NotDetected) 07/01/24 17:02 Ur Phencyclidine Scrn Not Detected (NotDetected) 07/01/24 17:02 Ur Amphetamines Screen Not Detected (NotDetected) 07/01/24 17:02 U Methamphetamines Scrn Not Detected (NotDetected) 07/01/24 17:02 U Benzodiazepines Scrn Not Detected (NotDetected) 07/01/24 17:02 Urine Cocaine Screen Not Detected (NotDetected) 07/01/24 17:02 U Marijuana (THC) Screen Detected (NotDetected) H 07/01/24 17:02 Influenza Type A (PCR) Not Detected (Not Detectd) 07/06/24 08:45 Influenza Type B (PCR) Not Detected (Not Detectd) 07/06/24 08:45 RSV (PCR) Not Detected (Not Detectd) 07/06/24 08:45 SARS-CoV-2 (PCR) Not Detected (Not Detectd) 07/06/24 08:45 Vital Signs Temp 97.5 F L 07/07/24 06:31 Pulse 72 07/07/24 06:31 Resp 16 07/07/24 06:31 BP 117/79 07/07/24 06:31 Pulse Ox 98 07/07/24 06:31 FiO2 Patient Condition at Discharge: Stable Plan - Discharge Summary Discharge Rx Participant: No New Discharge Prescriptions: New ARIPiprazole IM [Abilify Maintena] 400 mg IM QMONTHLY #1 each ARIPiprazole [Abilify] 15 mg PO DAILY 13 Days #13 tab Prazosin [Minipress] 1 mg PO HS 30 Days #30 cap Nicotine Gum (Polacrilex) [Nicorette] 2 mg BUCCAL Q4HR PRN 30 Days #180 pieceofgum PRN Reason: Nicotine Cravings Sertraline [Zoloft] 50 mg PO HS 30 Days #30 tab Discontinued risperiDONE microspheres [RisperDAL CONSTA] 25 mg IM Q14D Discharge Medication List ARIPiprazole IM [Abilify Maintena] 400 mg IM QMONTHLY #1 each 07/07/24 [Rx] ARIPiprazole [Abilify] 15 mg PO DAILY 13 Days #13 tab 07/07/24 [Rx] Nicotine Gum (Polacrilex) [Nicorette] 2 mg BUCCAL Q4HR PRN 30 Days #180 pieceofgum 07/07/24 [Rx] Prazosin [Minipress] 1 mg PO HS 30 Days #30 cap 07/07/24 [Rx] Sertraline [Zoloft] 50 mg PO HS 30 Days #30 tab 07/07/24 [Rx] Follow up Appointment(s)/Referral(s): [facility] [Outside] - 07/21/24 10:00 am (07/21/2024 10:00AM - 11:00AM JORGE LUIS ANDERSON ) [facility] [NON-STAFF] - 1 Week Patient Instructions/Handouts: Bipolar Disorder (ED), Post Traumatic Stress Disorder (GEN), Cannabis Abuse (DC) Discharge Disposition: HOME SELF-CARE
== END 2024-07-07 11:30 | disposition home or self-care (01) | DRG 753 ==
LOC: EC 16:17 → 3MHU 07-02 00:43
PROVIDERS: ADMIT Psychiatry & Neurology Psychiatry; ATTEND Psychiatry & Neurology Psychiatry
DX: F31.9 Bipolar disorder, unspecified (principal); F12.10 Cannabis abuse, uncomplicated; F17.210 Nicotine dependence, cigarettes, uncomplicated; F41.0 Panic disorder [episodic paroxysmal anxiety]; F43.10 Post-traumatic stress disorder, unspecified; F90.9 Attention-deficit hyperactivity disorder, unspecified type; R45.1 Restlessness and agitation; J45.909 Unspecified asthma, uncomplicated; F51.5 Nightmare disorder; R45.851 Suicidal ideations; Z59.00 Homelessness unspecified; Z91.148 Patient's other noncompliance with medication regimen for other reason; Z91.51 Personal history of suicidal behavior; Z56.0 Unemployment, unspecified; Z60.8 Other problems related to social environment; Z79.899 Other long term (current) drug therapy; Z11.52 Encounter for screening for COVID-19; F60.0 Paranoid personality disorder; Z71.51 Drug abuse counseling and surveillance of drug abuser; Z71.89 Other specified counseling
CPT/HCPCS: 36415; 80053; 80306; 81001; 81025; 82075; 83690; 85025; 87636; 99285

== ENCOUNTER 2025-02-22 22:22 | Inpatient (IN) | payer MEDICAID, OTHER ==
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
[2025-02-22 23:37] LABS: Basophils # (A) 0.04 10*3/uL (0.00-0.10); Basophils % (A) 0.4 %; Eosinophils # (A) 0.03 10*3/uL (0.04-0.35); Eosinophils % (A) 0.3 %; HCT 44.5 % (37.2-46.3); Lymphocytes # (A) 1.86 10*3/uL (0.90-5.00); Lymphocytes % (A) 19.9 %; MCH 27.3 pg (27.0-32.0); MCHC 33.7 g/dL (32.0-37.0); MCV 80.9 fL (80.0-97.0); Mean Platelet Volume 11.7 fL (9.5-12.2); Monocytes # (A) 0.63 10*3/uL (0.20-1.00); Monocytes % (A) 6.7 %; Neutrophils # (A) 6.77 10*3/uL (1.80-7.70); Neutrophils % (A) 72.4 %; Platelet Count 280 10*3/uL (140-440); RDW 13.7 % (11.5-14.5); WBC 9.36 10*3/uL (4.50-10.00)
[2025-02-22 23:51] LABS: ALT 14 U/L (4-34); AST 22 U/L (14-36); African American GFR (CKD) >90 (>60 ml/min/1.73 sqM); Albumin 4.7 g/dL (3.5-5.0); Alkaline Phosphatase 96 U/L (38-126); Amylase 41 U/L (30-110); Anion Gap 12 mmol/L; Blood Urea Nitrogen 10 mg/dL (7-17); Calcium 10.2 mg/dL (8.4-10.2); Carbon Dioxide 23 mmol/L (22-30); Chloride 104 mmol/L (98-107); Glucose 97 mg/dL (74-99); Lipase 87 U/L (23-300); Non-African American GFR(CKD) >90 (>60 ml/min/1.73 sqM); Potassium 3.4 mmol/L (3.5-5.1); Sodium 139 mmol/L (137-145); Total Bilirubin 0.9 mg/dL (0.2-1.3); Total Protein 8.4 g/dL (6.3-8.2)
[2025-02-23 00:19] LABS: HCG,Quantitative Serum <2.4 mIU/mL
[2025-02-23 00:45] LABS: Influenza A Not Detected (Not Detectd); Influenza B Not Detected (Not Detectd); RSV Not Detected (Not Detectd)
[2025-02-23] MEDS ORDERED: LORazepam 2 MG/ML INJ IM PRN (03:22)
[2025-02-23] MEDS ORDERED: HALOPERIDOL LACTATE 5 MG/ML 1 ML VIAL IM PRN (03:22)
[2025-02-23] MEDS: NICOTINE 14MG/24HR PATCH TRANSDERM SCH (10:26)
[2025-02-23 11:34] LABS: Amphetamine Screen,Urine Detected (NotDetected); Barbiturate Screen,Urine Not Detected (NotDetected); Benzodiazepines Screen,Urine Not Detected (NotDetected); Cocaine Screen,Urine Not Detected (NotDetected); Methadone Screen, Urine Not Detected (NotDetected); Opiate Screen,Urine Not Detected (NotDetected); Oxycodone Screen, Urine Not Detected (NotDetected); Phencyclidine Screen,Urine Not Detected (NotDetected); Tricyclic Antidepressant,Urine Not Detected (NotDetected); Urn Cannabinoid Scrn Detected (NotDetected)
[2025-02-23 12:16] LABS: Amorphous Sediment,Urine Rare /hpf; Appearance,Urine Turbid (Clear); Bacteria,Urine Few /hpf; Bilirubin,Urine 1+ (Negative); Blood,Urine Large (Negative); Color,Urine Red; Glucose,Urine (UA) Negative (Negative); Ketones,Urine 1+ (Negative); Leukocyte Esterase,Urine Small (Negative); Mucus,Urine Many /hpf; Nitrite,Urine Negative (Negative); Protein,Urine 2+ (Negative); RBC,Urine 6 /hpf (0-5); Specific Gravity,Urine 1.033 (1.001-1.035); Squamous Epithelial Cell,Urine 54 /hpf (0-4); WBC,Urine 17 /hpf (0-5)
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
[2025-02-23] MEDS: ARIPiprazole 5 MG TAB PO SCH (14:35)
[2025-02-23] MEDS: LORazepam 1 MG TAB PO PRN (16:38)
[2025-02-23 17:05] LABS: Glucose,Whole Blood 99 mg/dL (70-110)
[2025-02-23] MEDS: haloperidoL 5 MG TAB PO PRN (18:31)
--- NOTE | 2025-02-23 20:18 | P.CONS ---
History of Present Illness - Reason for Consult Consult date: 02/23/25 medical consultation - Chief Complaint psychosis/SI - History of Present Illness danielle is a 24-year-old female with past medical history of bipolar disorder She had presented to hospital complaining of suicidal statement. History is limited as the patient was noncooperative me. I had examined the patient in room 306 with behavioral health nurse at present at bedside. Most recent vital signs are at 09 100 which show a heart rate of 99 respiratory rate of 20 blood pressure 114/71 and she is 98% room air. Lab work shows a white blood cell count 9.36 hemoglobin 15 platelet count of 280. CMP shows potassium 3.4 creatinine 0.59. Urine is negative. Urinalysis had revealed hematuria. Urine drug screen was positive for methamphetamine and cannabis. Review of Systems Pertinent positives and negatives as discussed in HPI, a complete review of sys tems was performed and all other systems are negative. Past Medical History Past Medical History: Asthma Additional Past Medical History / Comment(s): ADHD History of Any Multi-Drug Resistant Organisms: None Reported Past Surgical History: No Surgical Hx Reported Past Anesthesia/Blood Transfusion Reactions: No Reported Reaction Smoking Status: Current every day smoker, Vaper - Past Family History Father History Unknown: Yes Mother History Unknown: Yes Medications and Allergies Home Medications Medication Instructions Recorded Confirmed Type ARIPiprazole IM [Abilify Maintena] 400 mg IM QMONTHLY #1 each 07/07/24 Rx ARIPiprazole [Abilify] 15 mg PO DAILY 13 Days #13 tab 07/07/24 Rx Nicotine Gum (Polacrilex) 2 mg BUCCAL Q4HR PRN 30 Days #180 07/07/24 Rx [Nicorette] pieceofgum Prazosin [Minipress] 1 mg PO HS 30 Days #30 cap 07/07/24 Rx Sertraline [Zoloft] 50 mg PO HS 30 Days #30 tab 07/07/24 Rx Allergies Allergy/AdvReac Type Severity Reaction Status Date / Time No Known Allergies Allergy Verified 02/22/25 22:24 Physical Exam Vitals: Vital Signs Temp Pulse Pulse Resp BP BP Pulse Ox 02/23/25 09:00 97.9 F 99 20 114/71 98 02/23/25 04:17 97.8 F 83 16 119/80 98 02/22/25 22:24 97.6 F 119 H 18 127/91 93 L Intake and Output 02/23/25 02/23/25 02/23/25 06:59 14:59 22:59 Other: Weight 81.788 kg General: non toxic, no distress, female Derm: warm, dry Head: atraumatic, normocephalic, symmetric Eyes: EOMI, no lid lag, anicteric sclera, pupils equal round reactive to light ENT: Nose and ears atraumatic, no thrush, no pharyngeal erythema Neck: No thyromegaly, no cervical lymphadenopathy, trachea midline, supple Mouth: no lip lesion, mucus membranes moist Cardiovascular: S1S2 reg, no murmu Lungs: clear to ascultation bilateral, no ronchi, no rales, no wheeze, no accessory muscle use Abdominal: soft, nontender to palpation, no guarding, no appreciable organomegaly, normal bowel sounds Ext: no gross muscle atrophy Neuro: Moving all extremity spontaneously Psych: not participating much in exam. flat effect Results CBC & Chem 7: 02/22/25 23:27 02/22/25 23:27 Labs: Abnormal Lab Results - Last 24 Hours (Table) 02/22/25 02/22/25 02/23/25 Range/Units 23:27 23:27 10:53 RBC 5.50 H (4.10-5.20) 10*6/uL Eosinophils # 0.03 L (0.04-0.35) 10*3/uL Potassium 3.4 L (3.5-5.1) mmol/L Total Protein 8.4 H (6.3-8.2) g/dL Urine Appearance (Clear) Urine Protein (Negative) Urine Ketones (Negative) Urine Blood (Negative) Urine Bilirubin (Negative) Ur Leukocyte Esterase (Negative) Urine RBC (0-5) /hpf Urine WBC (0-5) /hpf Ur Squamous Epith Cells (0-4) /hpf Amorphous Sediment (None) /hpf Urine Bacteria (None) /hpf Urine Mucus (None) /hpf Ur Amphetamines Screen Detected H (NotDetected) U Methamphetamines Scrn Detected H (NotDetected) U Marijuana (THC) Screen Detected H (NotDetected) 02/23/25 Range/Units 10:53 RBC (4.10-5.20) 10*6/uL Eosinophils # (0.04-0.35) 10*3/uL Potassium (3.5-5.1) mmol/L Total Protein (6.3-8.2) g/dL Urine Appearance Turbid H (Clear) Urine Protein 2+ H (Negative) Urine Ketones 1+ H (Negative) Urine Blood Large H (Negative) Urine Bilirubin 1+ H (Negative) Ur Leukocyte Esterase Small H (Negative) Urine RBC 6 H (0-5) /hpf Urine WBC 17 H (0-5) /hpf Ur Squamous Epith Cells 54 H (0-4) /hpf Amorphous Sediment Rare H (None) /hpf Urine Bacteria Few H (None) /hpf Urine Mucus Many H (None) /hpf Ur Amphetamines Screen (NotDetected) U Methamphetamines Scrn (NotDetected) U Marijuana (THC) Screen (NotDetected) Assessment and Plan Assessment: #) Suicidal ideation. primary management as per psychiatry team. #) Bipolar disorder Currently on abilify 5 mg daily as per psychiatry team #) Methamphtamine use, recommend cessation #) cannabis use, recommend cessation #) Class I obesity, weight loss recommended #) Tobacco use with vaping. recommend cessation. nicotine patch while inpatient a1c, lipid profile and tsh pending at the time of this writing Thank you for allowing [facility] for taking care of this patient. Please not have as a date to contact us if any further questions arise Time with Patient: Greater than 30
[2025-02-23] MEDS: MELATONIN 5 MG TABLET PO SCH (22:20)
[2025-02-23] MEDS: PRAZOSIN 1 MG CAP PO SCH (22:20)
--- NOTE | 2025-02-24 11:55 | P.PN ---
Progress Note - Text Progress Note Date: 02/24/25 Interval History: Patient was seen today wandering the hallways and was agreeable to speak to wr iter in the office. She continues to state that she is having "racing thoughts" and claims that she is also still hearing voices and feels that there is no improvement so far. Claims that her anxiety is still fairly elevated still feeling depressed. She was agreeable to try Cymbalta today as she has never tried it in the past. Claims that she slept without taking her medications, claims that she will ask for them before she goes to bed tonight. Claims that her appetite is improving mildly. She has been trying to go to groups and interacting with other patients on the unit hygiene and grooming improving. Denies any visual hallucinations today denies any suicidal homicidal ideations intent or plan. Not reporting any other side effects from the medications. MENTAL STATUS EXAM: General Appearance: Patient appears to have short hair, wearing glasses, be younger than stated age, alert, directable, and more cooperative. Patient appears to have fair hygiene and grooming. Behavior: Patient is seated without any agitated behavior. More cooperative today Speech: Patient's speech is fluent and nonpressured. [place], improving mildly Mood/Affect: Patient reports their mood is "still not good", affect is incongruent, appears mildly upset Suicidality/Homicidality: Patient denies having any homicidal ideation intent or plan. Denies any suicidal ideations, denies any plan or intent Perceptions: Patient admits to experiencing auditory hallucinations denies any visual hallucinations Though content/process: He is fairly concrete, No endorsing any paranoia or delusions, more talkative today Memory and concentration: Alert and oriented to person and place. Not clearly oriented to purpose. Concentration is impaired yet improving Judgment and insight: poor/limited, improving mildly IMPRESSIONS: Bipolar disorder with psychotic features Intellectual disability mild PTSD Cannabis use disorder Methamphetamine abuse Nicotine dependence Homelessness Noncompliance with medication regimen PLAN: -Patient is admitted under voluntary status to MHU for stabilization of psychiatric symptoms and safety. Patient has signed adult voluntary form or medication consent at this time. Patient declined any written information about the medications today. -Medications : Increase Abilify 10 mg at daily for mood stabilization/psychosis Prazosin 1 mg nightly for nightmares Melatonin 10 mg nightly for insomnia Cymbalta 30 mg daily for mood/anxiety -Ativan and Haldol PRN for agitation/aggression -NRT - nicotine patch -SW will be on board for discharge planning. Encourage patient to participate in groups to work on coping skills. she is currently homeless
[2025-02-24] MEDS: DULoxetine HCL 30 MG CAPSULE.DR PO SCH (12:23)
[2025-02-24] MEDS: ACETAMINOPHEN TAB 325 MG TAB PO PRN (12:23)
[2025-02-24 15:35] LABS: Chol/HDL Ratio 2.79 Ratio; LDL Cholesterol,Calculated 66.4 mg/dL (0.0-131.0)
[2025-02-24] MEDS: PRAZOSIN 1 MG CAP PO SCH (20:27)
[2025-02-24] MEDS ORDERED: PRAZOSIN 1 MG CAP PO SCH (21:00)
[2025-02-25] MEDS: ARIPiprazole 10 MG TAB PO SCH (08:38)
--- NOTE | 2025-02-25 15:10 | P.PN ---
Progress Note - Text Progress Note Date: 02/25/25 Dictation was produced using [employer] dictation software. Please excuse any grammatical, word or spelling errors. Interval history: Patient was in her room and was directable and agreeable to speak with the property underwriter in the office for psychiatric follow-up. The patient states that she is feeling "agitated, stressed out, and depressed" states that she thought she is , "I saw my stomach moving 3 months ago." States that her mood is "positive as always" states that she is always looking at the bright side. She reported depression and anxiety to be bad, she denied any SI/HI, or self harm. She states that she was able to sleep well last night, and has been eating well. She states that she is feeling safe, and reported that she is trying to keep to herself. She admitted to hearing voices "telling me what people are thinking" and seeing things "I can see shadows, and figures", reported that she pay much attention to other people to monitor if they are lying. She states that she is trying to block the voices, states that she has been having issues since she was 2 yo, and she was speaking in tongues. States that she has been taking her medications, she denied any current side effects. She states that prazosin was helping with her sleep. MENTAL STATUS EXAM: General Appearance: Patient appears to have short hair, wearing glasses, be younger than stated age, alert, directable, calm, and cooperative. Patient appears to have fair hygiene and grooming. Behavior: Patient is seated without any agitated behavior. Calm and cooperative, pleasant Speech: Patient's speech is fluent and nonpressured. [place], improving mildly Mood/Affect: Patient reports their mood is "positive as always", affect is labile, congruent Suicidality/Homicidality: Patient denies having any homicidal ideation intent or plan. Denies any suicidal ideations, denies any plan or intent Perceptions: Patient admits to experiencing auditory hallucinations and visual hallucinations which she reported to be chronic in nature Though content/process: He is fairly concrete, No endorsing any paranoia or d elusions, more talkative at times Memory and concentration: Alert and oriented to person and place. Not clearly oriented to purpose. Concentration is impaired yet improving Judgment and insight: poor/limited, improving mildly IMPRESSIONS: Bipolar disorder with psychotic features Intellectual disability mild PTSD Cannabis use disorder Methamphetamine abuse Nicotine dependence Homelessness Noncompliance with medication regimen Assessment/Plan: Continue with current diagnosis. Patient continues to meet criteria for inpatient psychiatric admission for symptom stabilization and safety. Patient will be maintained on current psychotropic medication regimen which include Abilify 10 mg p.o. daily which was increased on Thursday, prazosin 1 mg p.o. at bedtime, melatonin 10 mg p.o. at bedtime, and Cymbalta 30 mg p.o. daily, no changes today, psychoeducation was provided, patient denied any side effects, she denied any muscle stiffness, rigidity, abnormal movement, or drooling. Monitor for medication compliance and for any psychotropic medication side effects. Will continue to monitor ongoing response to treatment. Encouraged participation in milieu.
--- NOTE | 2025-02-26 14:09 | P.PN ---
Progress Note - Text Progress Note Date: 02/26/25 Dictation was produced using [employer] dictation software. Please excuse any grammatical, word or spelling errors. Interval history: Patient was seen in the hallway and was directable and agreeable to speak with the group underwriter in the office for psychiatric follow-up. The patient states that she is feeling "stressed" today, because she does not know if she will get her own place, and reported that she is still hearing voices, states that she has been having voices since she was a little girl, states that it is all over the place, "they are bipolar" states that it is people talking. States that sleep was not great last night, her roommate was talking to her and she did not want to talk with them, states that prazosin is helping a lot, it is reported as 7 hours of sleep last night. She reported that depression is low. She denied any visual hallucination. Denied any current SI/HI or self harm. States that she is taking her medications, denied any current side effects, denied any muscle stiffness, rigidity, abnormal movement or drooling. She admitted to good appetite. MENTAL STATUS EXAM: General Appearance: Patient appears to have short hair, wearing glasses, be younger than stated age, alert, directable, calm, and cooperative. Patient appears to have fair hygiene and grooming. Behavior: Patient is seated without any agitated behavior. Calm and cooperative, pleasant Speech: Patient's speech is fluent and nonpressured. [place], improving mildly Mood/Affect: Patient reports their mood is "stressed", affect is labile, congruent Suicidality/Homicidality: Patient denies having any homicidal ideation intent or plan. Denies any suicidal ideations, denies any plan or intent Perceptions: Patient admits to experiencing auditory hallucinations and visual hallucinations which she reported to be chronic in nature Though content/process: He is fairly concrete, No endorsing any paranoia or delusions, more talkative at times Memory and concentration: Alert and oriented to person and place. Not clearly oriented to purpose. Concentration is impaired yet improving Judgment and insight: poor/limited, improving mildly IMPRESSIONS: Bipolar disorder with psychotic features Intellectual disability mild PTSD Cannabis use disorder Methamphetamine abuse Nicotine dependence Homelessness Noncompliance with medication regimen Assessment/Plan: Continue with current diagnosis. Patient continues to meet criteria for inpatient psychiatric admission for symptom stabilization and saf ety. Patient will be maintained on current psychotropic medication regimen which include Abilify 10 mg p.o. daily which was increased on Thursday, prazosin 1 mg p.o. at bedtime, melatonin 10 mg p.o. at bedtime, and Cymbalta 30 mg p.o. daily, no changes today, psychoeducation was provided, patient denied any side effects, she denied any muscle stiffness, rigidity, abnormal movement, or drooling. Mon itor for medication compliance and for any psychotropic medication side effects. Will continue to monitor ongoing response to treatment. Encouraged participation in milieu.
[2025-02-26] MEDS: MAG HYDROX/AL HYDROX/SIMETH 355 ML BOTTLE PO PRN (16:12)
[2025-02-26 21:53] LABS: Basophils # (A) 0.04 10*3/uL (0.00-0.10); Basophils % (A) 0.5 %; Eosinophils # (A) 0.11 10*3/uL (0.04-0.35); Eosinophils % (A) 1.5 %; HCT 37.7 % (37.2-46.3); HGB 12.5 g/dL (12.0-15.0); Lymphocytes # (A) 2.15 10*3/uL (0.90-5.00); Lymphocytes % (A) 28.4 %; MCH 27.9 pg (27.0-32.0); MCHC 33.2 g/dL (32.0-37.0); MCV 84.2 fL (80.0-97.0); Mean Platelet Volume 12.5 fL (9.5-12.2); Monocytes % (A) 7.9 %; Neutrophils # (A) 4.63 10*3/uL (1.80-7.70); Neutrophils % (A) 61.2 %; Platelet Count 225 10*3/uL (140-440); RBC 4.48 10*6/uL (4.10-5.20); RDW 13.5 % (11.5-14.5); WBC 7.57 10*3/uL (4.50-10.00)
[2025-02-26 21:54] LABS: Appearance,Urine Cloudy (Clear); Bacteria,Urine Rare /hpf; Bilirubin,Urine Negative (Negative); Blood,Urine Negative (Negative); Color,Urine Light Yellow; Glucose,Urine (UA) Negative (Negative); Ketones,Urine Negative (Negative); Leukocyte Esterase,Urine Negative (Negative); Mucus,Urine Occasional /hpf; Nitrite,Urine Negative (Negative); Protein,Urine Negative (Negative); RBC,Urine <1 /hpf (0-5); Specific Gravity,Urine 1.023 (1.001-1.035); Squamous Epithelial Cell,Urine 19 /hpf (0-4); Urobilinogen,Urine <2.0 mg/dL (<2.0); WBC,Urine 1 /hpf (0-5)
--- NOTE | 2025-02-27 09:24 | P.PN ---
Progress Note - Text Progress Note Date: 02/27/25 Interval History: Patient was seen today wandering the hallways and was agreeable to speak to wr iter in the office. Patient claims that she was doing a bit better today with regards to her symptoms. Claims that she is still feeling a bit anxious, claims that her mood has improved. We spoke about transitioning her onto Abilify Maintenna to help ensure compliance and she states that she did well with it in the past and would take it again today. Claims that she is feeling nervous about where she will be going upon discharge claims that she is interested in going to rehab. Has been trying to go to groups, claims that she is sleeping about 7 hours at nighttime has been eating well. hygiene and grooming improving. Denies any visual hallucinations today denies any suicidal homicidal ideations intent or plan. Not reporting any other side effects from the medications. MENTAL STATUS EXAM: General Appearance: Patient appears to have short hair, wearing glasses, be younger than stated age, alert, directable, and more cooperative. Patient appears to have fair hygiene and grooming. Behavior: Patient is seated without any agitated behavior. More cooperative today Speech: Patient's speech is fluent and nonpressured. improving mildly Mood/Affect: Patient reports their mood is "better, just anxious", affect is congruent Suicidality/Homicidality: Patient denies having any homicidal ideation intent or plan. Denies any suicidal ideations, denies any plan or intent Perceptions: Patient admits to experiencing auditory hallucinations denies any visual hallucinations Though content/process: More goal oriented. No endorsing any paranoia or delusions, more talkative today Memory and concentration: Alert and oriented to person and place. Follows commands. Judgment and insight: improving mildly IMPRESSIONS: Bipolar disorder with psychotic features Intellectual disability mild PTSD Cannabis use disorder Methamphetamine abuse Nicotine dependence Homelessness Noncompliance with medication regimen PLAN: -Patient is admitted under voluntary status to [facility] for stabilization of psychiatric symptoms and safety. Patient has signed adult voluntary form or medication consent at this time -Medications : Abilify 10 mg at daily for mood stabilization/psychosis. patient would like to be transitioned onto Abilify Maintenna 400 mg IM to help ensure compliance, next dose will be due on 03/27 Prazosin 1 mg nightly for nightmares Melatonin 10 mg nightly for insomnia increase Cymbalta 30 mg bid for mood/anxiety -Ativan and Haldol PRN for agitation/aggression -NRT - nicotine patch -SW will be on board for discharge planning. Encourage patient to participate in groups to work on coping skills. she is currently homeless. she is interested in rehab today.
[2025-02-27] MEDS: ARIPiprazole IM SYRINGE 400 MG (NO CHARGE) PHARMACY STOCK IM SCH (10:40)
[2025-02-27 21:33] VITALS: RESP 16
[2025-02-28] MEDS: DULoxetine HCL 30 MG CAPSULE.DR PO SCH (08:18)
--- NOTE | 2025-02-28 10:28 | P.PN ---
Progress Note - Text Progress Note Date: 02/28/25 Interval History: Patient was seen today sitting in group and was agreeable to speak to typewriter aligner in the office. Patient claims that she was doing a bit better today. She states that she had a difficult time sleeping last night due to her roommate "freaking me out". Claims that she would like to try trazodone again to help her with sleep. States that she has been trying to go to groups, appears to be improving in terms of her cooperativeness, more directable. Denying any racing thoughts. Claims that she is happy that she got into rehab and will be going there in the morning. Claims that she is eating well taking her medications. Received Abilify Maintenna injection yesterday tolerated it well. Denies any visual hallucinations denies any auditory hallucinations, today denies any suicidal homicidal ideations intent or plan. Not reporting any other side effects from the medications. MENTAL STATUS EXAM: General Appearance: Patient appears to have short hair, wearing glasses, be younger than stated age, alert, directable, and more cooperative. Patient appears to have fair hygiene and grooming. Behavior: Patient is seated without any agitated behavior. More cooperative today Speech: Patient's speech is fluent and nonpressured. improving mildly Mood/Affect: Patient reports their mood is "better", affect is congruent Suicidality/Homicidality: Patient denies having any homicidal ideation intent or plan. Denies any suicidal ideations, denies any plan or intent Perceptions: Patient admits to experiencing auditory hallucinations denies any visual hallucinations Though content/process: More goal oriented. No endorsing any paranoia or delusions, more talkative today Memory and concentration: Alert and oriented to person and place. Follows commands. Judgment and insight: improving mildly IMPRESSIONS: Bipolar disorder with psychotic features Intellectual disability mild PTSD Cannabis use disorder Methamphetamine abuse Nicotine dependence Homelessness Noncompliance with medication regimen PLAN: -Patient is admitted under voluntary status to [facility] for stabilization of psychiatric symptoms and safety. Patient has signed adult voluntary form or medication consent at this time -Medications : Abilify 10 mg at daily for mood stabilization/psychosis. Patient was given Abilify Maintenna 400 mg IM on 02/27, next dose will be due on 03/28 Prazosin 1 mg nightly for nightmares Melatonin 10 mg nightly for insomnia Cymbalta 30 mg bid for mood/anxiety trazodone 50 mg qhs for insomnia/mood -Ativan and Haldol PRN for agitation/aggression -NRT - nicotine patch -SW will be on board for discharge planning. Encourage patient to participate in groups to work on coping skills. Patient has been accepted to rehab in [place], will be discharged early tomorrow morning and will go directly there.
[2025-02-28] MEDS: IBUPROFEN 600 MG TAB PO PRN (10:31)
[2025-02-28] MEDS: MAGNESIUM HYDROXIDE 2,400 MG/30 ML CUP PO PRN (13:49)
[2025-02-28] MEDS: traZODone HCL 50 MG TAB PO SCH (20:28)
[2025-02-28 21:17] VITALS: BP 110/71; PULSE 76; TEMP 98
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
== END 2025-03-01 09:45 | disposition home or self-care (01) | DRG 753 ==
LOC: EC 22:22 → 3MHU 02-23 03:08
PROVIDERS: ADMIT Psychiatry & Neurology Psychiatry; ATTEND Psychiatry & Neurology Psychiatry
DX: F31.89 Other bipolar disorder (principal); Z91.148 Patient's other noncompliance with medication regimen for other reason; Z59.00 Homelessness unspecified; F15.10 Other stimulant abuse, uncomplicated; F12.10 Cannabis abuse, uncomplicated; E66.811 Obesity, class 1; Z68.35 Body mass index [BMI] 35.0-35.9, adult; R45.851 Suicidal ideations; F17.290 Nicotine dependence, other tobacco product, uncomplicated; F43.10 Post-traumatic stress disorder, unspecified; F70 Mild intellectual disabilities; R31.9 Hematuria, unspecified; Z91.51 Personal history of suicidal behavior; Z56.0 Unemployment, unspecified; Z79.899 Other long term (current) drug therapy
CPT/HCPCS: 36415; 80053; 80061; 80306; 81001; 81025; 82075; 82150; 83036; 83605; 83690; 84443; 84702; 85025; 87636; 99285